=== PATIENT | male | born 1955 | race Caucasian/White ===

== ENCOUNTER 2020-09-27 14:29 | Inpatient (IN) | payer MEDICARE, OTHER ==
--- NOTE | 2020-09-27 14:49 | ED ---
SOB HPI - General Chief Complaint: Shortness of Breath Stated Complaint: +Covid Time Seen by Provider: 09/27/20 14:29 Source: patient, RN/MD, EMS, RN notes reviewed Mode of arrival: EMS Limitations: no limitations - History of Present Illness Initial Comments: This is a 65-year-old male with a history of COPD, a former smoker, history of hypothyroidism who uses 4 L of oxygen normally who really short of breath this evening and worse this morning. He was diagnosed with Covid 19 2 days ago. He was found upon initial evaluation by paramedics have a saturation of 77% on 4 L of oxygen. After being placed on 15 L up to 90%. Evaluation was performed at this facility and he was transferred for further evaluation and treatment of COPD exacerbation and Covid 19 his transfer was uneventful. MD Complaint: shortness of breath Review of Systems ROS Statement: Those systems with pertinent positive or pertinent negative responses have been documented in the HPI. ROS Other: All systems not noted in ROS Statement are negative. Past Medical History Past Medical History: COPD History of Any Multi-Drug Resistant Organisms: None Reported Past Surgical History: No Surgical Hx Reported Past Psychological History: No Psychological Hx Reported Smoking Status: Never smoker Past Alcohol Use History: None Reported Past Drug Use History: None Reported General Exam - General Exam Comments Initial Comments: Is a well-developed well-nourished awake alert oriented times 3 male Limitations: no limitations General appearance: alert, in no apparent distress Head exam: Present: atraumatic, normocephalic, normal inspection Eye exam: Present: normal appearance, PERRL, EOMI. Absent: scleral icterus, conjunctival injection, periorbital swelling ENT exam: Present: normal exam, mucous membranes moist Neck exam: Present: normal inspection. Absent: tenderness, meningismus, lymphadenopathy Respiratory exam: Present: decreased breath sounds. Absent: respiratory distress, wheezes, rales, rhonchi, stridor Cardiovascular Exam: Present: regular rate, normal rhythm, normal heart sounds. Absent: systolic murmur, diastolic murmur, rubs, gallop, clicks GI/Abdominal exam: Present: soft, normal bowel sounds. Absent: distended, tenderness, guarding, rebound, rigid Extremities exam: Present: normal inspection, full ROM, normal capillary refill. Absent: tenderness, pedal edema, joint swelling, calf tenderness Back exam: Present: normal inspection Neurological exam: Present: alert, oriented X3, CN II-XII intact Psychiatric exam: Present: normal affect, normal mood Skin exam: Present: warm, dry, intact, normal color. Absent: rash Course Vital Signs 09/27/20 09/27/20 14:34 14:37 Temperature 97.8 F Pulse Rate 71 Respiratory 22 24 Rate Blood Pressure 135/72 O2 Sat by Pulse 93 L Oximetry Medical Decision Making - Medical Decision Making I did review the materials that were available from the sending facility. Patient will be admitted for inpatient treatment and evaluation for COPD exacerbation and Covid 19 I did discuss the case with Dr. Cantrell Disposition Clinical Impression: Acute exacerbation of chronic obstructive pulmonary disease, COVID-19, Failure of outpatient treatment, Hypoxemia Disposition: ADMITTED IP TO THIS HOSP Condition: Fair Referrals: None,Stated [Primary Care Provider] - 1-2 days
[2020-09-27] MEDS ORDERED: NALOXONE 0.4 MG/ML 1 ML VIAL IV PRN ×2 (15:06→15:43)
[2020-09-27 15:32] LABS: ABG HCO3 20 mmol/L (21-25); ABG Oxygen Saturation 91.8 % (94-97); ABG PCO2 31 mmHg (35-45); ABG PH 7.43 (7.35-7.45); ABG PO2 64 mmHg (83-108); ABG TCO2 21 mmol/L (19-24); Allen Test Performed? Yes
[2020-09-27 15:33] LABS: Magnesium 2.7 mg/dL (1.6-2.3)
[2020-09-27 15:43] LABS: Partial Thromboplastin Time 25.8 sec (22.0-30.0); Prothrombin Time 10.2 sec (9.0-12.0)
[2020-09-27] MEDS ORDERED: ACETAMINOPHEN TAB 325 MG TAB PO PRN (15:43)
[2020-09-27] MEDS ORDERED: IPRATROPIUM-ALBUTEROL 3 ML NEB INHALATION PRN (15:49)
--- NOTE | 2020-09-27 15:53 | XR ---
EXAMINATION TYPE: XR chest 1V portable DATE OF EXAM: 09/27/2020 COMPARISON: None INDICATION: Suspected Covid 19 pneumonia, short of breath TECHNIQUE: Single frontal view of the chest is obtained. FINDINGS: The heart size is normal. The pulmonary vasculature is normal. Bibasilar infiltrates are present. These are scattered and extending towards the periphery. Findings can be compatible with a typical Pneumonia. IMPRESSION: 1. Scattered mid and lower lung field infiltrates can be compatible with atypical pneumonia.
[2020-09-27] MEDS ORDERED: DEXAMETHASONE SOD PHOSPHATE 10 MG/ML 1 ML VIAL IV SCH (16:00)
[2020-09-27 16:01] LABS: D-Dimer 0.99 mg/L FEU (<0.60)
[2020-09-27] MEDS: SODIUM CHLORIDE 0.9% 1,000 ML IV SCH (16:22)
--- NOTE | 2020-09-27 16:29 | CT ---
EXAMINATION TYPE: CT angio chest DATE OF EXAM: 09/27/2020 COMPARISON: None HISTORY: Shortness of breath. CT DLP: 340.3 mGycm CONTRAST: CT chest with contrast and 3D reconstruction with MIP imaging is performed with IV Contrast, patient injected with 100 mL of Isovue 300. Contrast-enhanced CT of the chest was performed through the course of the pulmonary arteries with rory g and mediastinal window settings submitted. 3D reconstruction with MIP imaging was also performed. PULMONARY ARTERIES: The pulmonary arteries and their major tributaries are patent. I do not see loren dence for sizable filling defect to suggest pulmonary embolic process. LUNGS: Moderately severe emphysematous changes are noted. There is evidence of fibrosis within the mi d and lower lung zones. Superimposed infiltrate is difficult to exclude. Correlate clinically. MEDIASTINUM: Thoracic aorta is of normal caliber,however, evaluation is limited given timing of the contrast bolus. If there is concern for thoracic aortic pathology consider YINA. Correlate clinicall y . The heart is not enlarged. No evidence for mediastinal mass. No mediastinal lymph nodes greater than 1cm. HILAR STRUCTURES: No evidence for mass. No hilar lymph nodes greater than 1 cm. UPPER ABDOMEN: No significant abnormality is seen. IMPRESSION: 1. No evidence for Pulmonary embolism at this time. 2. Moderately severe emphysematous changes underlying pulmonary fibrosis. Superimposed infiltrate is difficult to exclude. Correlate clinically.
[2020-09-27] MEDS: ALBUTEROL HFA INHALER INHALATION SCH ×3 (17:04→23:03)
--- NOTE | 2020-09-27 17:10 | P.HPIM ---
History of Present Illness H&P Date: 09/27/20 Chief Complaint: Dyspnea 65 year old man with history of COPD chronically on 4L of NC presented with increasing dyspnea as transfer from outlying facility. Patient says that he started to feel increasingly short of breath last wednesday along with some nausea and weakness. From that point, he says that it had gotten significantly worse over the last 1-2 days. Last wednesday, he tested positive for coronavirus. He also describes a developing headache, but otherwise ROS is negative for fevers, chills, chest pain, palpitations, syncope, presyncope, abdominal pain, dysuria, dyschezia, numbness/weakness of extremities. Patient called EMS and was found to be hypoxic at 77% on his home 4L NC. he was placed on NRB and saturated 90%. Pt was transferred to our facility for further management. Review of Systems All Systems reviewed and pertinent positives and negatives noted in HPI, all other symptoms are negative Past Medical History Past Medical History: COPD History of Any Multi-Drug Resistant Organisms: None Reported Past Surgical History: No Surgical Hx Reported Past Psychological History: No Psychological Hx Reported Smoking Status: Never smoker Past Alcohol Use History: None Reported Past Drug Use History: None Reported Medications and Allergies Allergies Allergy/AdvReac Type Severity Reaction Status Date / Time acetaminophen [From NyQuil] Allergy Rash/Hives Verified 09/27/20 16:48 bee venom protein (honey bee) Allergy Anaphylaxis Verified 09/27/20 16:48 dextromethorphan Allergy Rash/Hives Verified 09/27/20 16:48 [From NyQuil] diphenhydramine Allergy Rash/Hives Verified 09/27/20 16:48 [From Benadryl] doxylamine [From NyQuil] Allergy Rash/Hives Verified 09/27/20 16:48 milk Allergy Diarrhea Verified 09/27/20 16:48 orange juice Allergy Rash/Hives Verified 09/27/20 16:41 pseudoephedrine [From NyQuil] Allergy Rash/Hives Verified 09/27/20 16:48 oatmeal Allergy Rash/Hives Uncoded 09/27/20 16:41 Physical Exam Osteopathic Statement: *. No significant issues noted on an osteopathic structural exam other than those noted in the History and Physical/Consult. Vitals: Vital Signs Temp Pulse Resp BP Pulse Ox 09/27/20 14:37 24 09/27/20 14:34 97.8 F 71 22 135/72 93 L Intake and Output 09/27/20 09/27/20 09/27/20 06:59 14:59 22:59 Other: Weight 72.575 kg Gen: awake, alert HEENT: normocephalic, atraumatic, good hearing acuity, moist mucous membranes Resp: Poor air exchange, diminished breath sounds, no crackles, wheezes CVS: good distal perfusion x 4, RRR, no murmurs, clicks, gallops GI: soft, NTTP, ND : no SPT, no CVAT, faustin catheter not present MSK: no pitting edema, no clubbing Neuro: non-focal, no sensory deficits, appropriate tone Psych: cooperative, euthymic mood Results Labs: Abnormal Lab Results - Last 24 Hours (Table) 09/27/20 09/27/20 09/27/20 Range/Units 15:13 15:13 15:17 D-Dimer 0.99 H (<0.60) mg/L FEU ABG pCO2 31 L (35-45) mmHg ABG pO2 64 L (83-108) mmHg ABG HCO3 20 L (21-25) mmol/L ABG O2 Saturation 91.8 L (94-97) % Magnesium 2.7 H (1.6-2.3) mg/dL Lactate Dehydrogenase 869 H (313-618) U/L C-Reactive Protein 35.0 H (<10.0) mg/L Assessment and Plan Assessment: 1. Acute on Chronic Hypoxemic Respiratory Failure 2. COVID 19 3. COPD exacerbation 65 year old man with history of COPD presented with Acute on Chronic Hypoxemic R espiratory failure in background of being diagnosed with COVID 19. Plan: - admit to telemetry, contact, airborne - oxygen PRN - duonebs PRN - dexamethasone 6mg IV daily - pulm consulted, likely candidate for remdesivir, plasma - Vit C/D, Zn, Famotidine - daily inflammatory markers - CXR, CT Chest pending - enoxaparin 40mg daily for PPx - Date of symptom onset: 09/20 - Date of Diagnosis: 09/23 Full Code
[2020-09-27] MEDS: AZITHROMYCIN 500 MG in SODIUM CHLORIDE 0.9% 250 ML IVPB SCH (17:27)
[2020-09-27] MEDS: ASCORBIC ACID 500 MG TAB PO SCH (17:35)
[2020-09-27] MEDS: ZINC SULFATE 220 MG CAP PO SCH (17:35)
[2020-09-27] MEDS: CHOLECALCIFEROL 400 UNIT TAB PO SCH (18:04)
--- NOTE | 2020-09-27 18:04 | P.CNPUL ---
History of Present Illness Consult date: 09/27/20 Requesting physician: Nicko Cantrell Reason for consult: dyspnea Chief complaint: COVID 19 History of present illness: 65-year-old white male patient with a history of COPD, former smoker, on home oxygen at 4 L/m, was brought into the hospital on 09/27/2020 per EMS with the worsening shortness of breath, and worsening hypoxemia, patient was tested positive for COVID 19, 2 days ago. Upon initial evaluation by paramedics his pulse ox was 77% on 4 L, and his oxygen flow was increased to 15 L with a pulse ox of 90%. His chest x-ray showed scattered mid and lower lung field infiltrates. His lab work showed d-dimer 0.99, LDH of 869, CRP of 35, influenza screen was negative, lactic acid was 2.0, magnesium level is 2.7, blood gas was obtained on 100% FiO2 showing pO2 of 64, pCO2 31 and pH of 7.43. Patient was started on empiric antibiotics in the form of azithromycin and Rocephin, prophylactic dose of Lovenox, and IV Decadron 6 mg daily. He remains on high flow oxygen at 15 L, and his pulse ox is 93%, his breathing is labored. His CTA chest showed no evidence of pulmonary embolism, it did show moderately severe emphysematous changes and underlying pulmonary fibrosis. Patient states that he had bronchoscopy before and [place], however currently does not follow with a educational specialist, never had a lung biopsy for diagnosis of interstitial lung disease, his been on oxygen on as-needed basis, for a period of 10 years. During our evaluation patient is short of breath with conversation, his pulse ox is very marginal he is only sat 90-93%, on 15 L O2. Review of Systems All systems: negative Constitutional: Denies chills, Denies fever Eyes: denies blurred vision, denies pain Ears, nose, mouth and throat: Denies headache, Denies sore throat Cardiovascular: Denies chest pain, Denies shortness of breath Respiratory: Reports dyspnea, Reports home oxygen, Denies cough Gastrointestinal: Denies abdominal pain, Denies diarrhea, Denies nausea, Denies vomiting Musculoskeletal: Denies myalgias Integumentary: Denies pruritus, Denies rash Neurological: Denies numbness, Denies weakness Psychiatric: Denies anxiety, Denies depression Endocrine: Denies fatigue, Denies weight change Past Medical History Past Medical History: COPD History of Any Multi-Drug Resistant Organisms: None Reported Past Surgical History: No Surgical Hx Reported Past Psychological History: No Psychological Hx Reported Smoking Status: Never smoker Past Alcohol Use History: None Reported Past Drug Use History: None Reported Medications and Allergies Home Medications Medication Instructions Recorded Confirmed Type Atorvastatin [Lipitor] 20 mg PO HS 09/27/20 09/27/20 History Donepezil HCl [Aricept] 10 mg PO HS 09/27/20 09/27/20 History EPINEPHrine (Auto Inject) [Epipen] 0.3 mg IM ONCE PRN 09/27/20 09/27/20 History HYDROcodone/APAP 7.5-325MG [Blaine 1 tab PO Q6H PRN 09/27/20 09/27/20 History 7.5-325] Levothyroxine Sodium [Synthroid] 75 mcg PO DAILY 09/27/20 09/27/20 History Magnesium Oxide [Mag-Ox] 250 mg PO W/BRKFST 09/27/20 09/27/20 History Metoprolol Succinate [Toprol XL] 25 mg PO DAILY 09/27/20 09/27/20 History Montelukast Sodium [Singulair] 10 mg PO HS 09/27/20 09/27/20 History Ranitidine HCl 150 mg PO DAILY 09/27/20 09/27/20 History dexAMETHasone [Dexamethasone] See Taper PO DAILY 09/27/20 09/27/20 History hydroCHLOROthiazide [Hydrodiuril] 25 mg PO DAILY 09/27/20 09/27/20 History lisinopriL [Zestril] 20 mg PO DAILY 09/27/20 09/27/20 History Allergies Allergy/AdvReac Type Severity Reaction Status Date / Time acetaminophen [From NyQuil] Allergy Rash/Hives Verified 09/27/20 16:48 bee venom protein (honey bee) Allergy Anaphylaxis Verified 09/27/20 16:48 dextromethorphan Allergy Rash/Hives Verified 09/27/20 16:48 [From NyQuil] diphenhydramine Allergy Rash/Hives Verified 09/27/20 16:48 [From Benadryl] doxylamine [From NyQuil] Allergy Rash/Hives Verified 09/27/20 16:48 milk Allergy Diarrhea Verified 09/27/20 16:48 orange juice Allergy Rash/Hives Verified 09/27/20 16:41 pseudoephedrine [From NyQuil] Allergy Rash/Hives Verified 09/27/20 16:48 oatmeal Allergy Rash/Hives Uncoded 09/27/20 16:41 Physical Exam Vitals: Vital Signs Temp Pulse Resp BP Pulse Ox 09/27/20 14:37 24 09/27/20 14:34 97.8 F 71 22 135/72 93 L Intake and Output 09/27/20 09/27/20 09/27/20 06:59 14:59 22:59 Other: Weight 72.575 kg GENERAL EXAM: Alert, very pleasant, 65-year-old white female, on 15 L of oxygen the pulse ox between 90-93%, dyspneic, tachypneic with conversation comfortable in no apparent distress. HEAD: Normocephalic/atraumatic. EYES: Normal reaction of pupils, equal size. Conjunctiva pink, sclera white. NOSE: Clear with pink turbinates. THROAT: No erythema or exudates. NECK: No masses, no JVD, no thyroid enlargement, no adenopathy. CHEST: No chest wall deformity. Symmetrical expansion. LUNGS: Equal air entry with diffuse crackles CVS: Regular rate and rhythm, normal S1 and S2, no gallops, no murmurs, no rubs ABDOMEN: Soft, nontender. No hepatosplenomegaly, normal bowel sounds, no guarding or rigidity. EXTREMITIES: clubbing noted in bilateral fingernails, no edema, no cyanosis, 2+ pulses and upper and lower extremities. MUSCULOSKELETAL: Muscle strength and tone normal. SPINE: No scoliosis or deformity SKIN: No rashes CENTRAL NERVOUS SYSTEM: Alert and oriented -3. No focal deficits, tone is normal in all 4 extremities. PSYCHIATRIC: Alert and oriented -3. Appropriate affect. Intact judgment and insight. Results - Laboratory Findings ABG ABG pH 7.43 (7.35-7.45) 09/27/20 15:17 ABG pCO2 31 mmHg (35-45) L 09/27/20 15:17 ABG pO2 64 mmHg (83-108) L 09/27/20 15:17 ABG O2 Saturation 91.8 % (94-97) L 09/27/20 15:17 PT/INR, D-dimer PT 10.2 sec (9.0-12.0) 09/27/20 15:13 INR 1.0 (<1.2) 09/27/20 15:13 D-Dimer 0.99 mg/L FEU (<0.60) H 09/27/20 15:13 Abnormal lab findings: Abnormal Labs 09/27/20 09/27/20 09/27/20 15:13 15:13 15:17 D-Dimer 0.99 H ABG pCO2 31 L ABG pO2 64 L ABG HCO3 20 L ABG O2 Saturation 91.8 L Magnesium 2.7 H Lactate Dehydrogenase 869 H C-Reactive Protein 35.0 H - Diagnostic Findings Chest x-ray: report reviewed, image reviewed CT scan - chest: report reviewed, image reviewed Assessment and Plan Plan: Assessment: #1. Acute on chronic hypoxic respiratory failure related to acute COVID 19 pneumonitis, tested positive for COVID 19 2 days ago #2. Chronic hypoxic respiratory failure related to history of COPD and underlying interstitial lung disease, normally wears 4 L of oxygen on as-needed basis #3. Former smoker #4. History of hypothyroidism #5. Elevated inflammatory markers related to acute COVID 19 infection #6. Elevated d-dimer of 0.99 on admission, with no evidence of pulmonary embolism on CT chest Plan: Continue Decadron, continue Lovenox, will add Pepcid, will add vitamin C, zinc supplement, vitamin D, we will add Remdesivir pending blood work to check his renal profile. Obtain pro-calcitonin level, follow-up inflammatory markers, follow-up chest x-ray in the morning, continue close monitoring of her oxygenation and febrile pattern, patient's condition is marginal, he is requiring high flow oxygen, his breathing is labored, has a high potential for further decompensation, we will upgrade his status to intensive care unit, and he will be closely followed in the intensive care unit. I performed a history & physical examination of the patient and discussed their management with my nurse practitioner, Morenita Abad. I reviewed the nurse practitioner's note and agree with the documented findings and plan of care. Lung sounds are positive for diminished breath sounds. The findings and the impression was discussed with the patient. I attest to the documentation by the nurse practitioner. Time with Patient: Greater than 30
[2020-09-27] MEDS: methylPREDNISolone SOD SUCCI 125 MG/2 ML VIAL IV SCH (18:31)
[2020-09-27 18:46] LABS: Basophils # (A) 0.1 k/uL (0-0.2); Basophils % (A) 1 %; Eosinophils % (A) 0 %; HCT 44.4 % (39.0-53.0); HGB 14.8 gm/dL (13.0-17.5); Lymphocytes # (A) 0.4 k/uL (1.0-4.8); Lymphocytes % (A) 4 %; MCH 29.1 pg (25.0-35.0); MCHC 33.4 g/dL (31.0-37.0); Mean Platelet Volume 7.8; Monocytes # (A) 0.4 k/uL (0-1.0); Monocytes % (A) 4 %; Neutrophils % (A) 91 %; Platelet Count 257 k/uL (150-450); WBC 9.9 k/uL (3.8-10.6)
[2020-09-27 18:56] LABS: Albumin 3.5 g/dL (3.5-5.0); Calcium 8.5 mg/dL (8.4-10.2); Potassium 4.9 mmol/L (3.5-5.1); Total Bilirubin 0.7 mg/dL (0.2-1.3); Total Protein 6.6 g/dL (6.3-8.2)
[2020-09-27] MEDS ORDERED: FAMOTIDINE 20 MG/2 ML VIAL IV SCH (21:00)
[2020-09-27] MEDS: MELATONIN 5 MG TABLET PO SCH (21:26)
[2020-09-27] MEDS: FAMOTIDINE 20 MG TAB PO SCH (21:26)
[2020-09-28 00:34] LABS: Ferritin 1106.3 ng/mL (22.0-322.0)
[2020-09-28 04:05] LABS: Albumin 3.2 g/dL (3.5-5.0); Calcium 8.3 mg/dL (8.4-10.2); Magnesium 2.8 mg/dL (1.6-2.3); Potassium 4.5 mmol/L (3.5-5.1); Total Bilirubin 0.6 mg/dL (0.2-1.3); Total Protein 6.1 g/dL (6.3-8.2)
[2020-09-28 04:12] LABS: Basophils % (A) 0 %; Eosinophils % (A) 0 %; HCT 42.5 % (39.0-53.0); Lymphocytes # (A) 0.4 k/uL (1.0-4.8); Lymphocytes % (A) 5 %; MCH 28.9 pg (25.0-35.0); MCV 87.4 fL (80.0-100.0); Mean Platelet Volume 8.1; Monocytes # (A) 0.3 k/uL (0-1.0); Monocytes % (A) 4 %; Neutrophils # (A) 7.2 k/uL (1.3-7.7); Neutrophils % (A) 89 %; Platelet Count 249 k/uL (150-450); RBC 4.86 m/uL (4.30-5.90); WBC 8.1 k/uL (3.8-10.6)
[2020-09-28] MEDS: ALBUTEROL HFA INHALER INHALATION SCH ×6 (06:15→23:29)
[2020-09-28 07:21] LABS: C Reactive Protein 36.4 mg/L (<10.0)
[2020-09-28] MEDS: methylPREDNISolone SOD SUCCI 125 MG/2 ML VIAL IV SCH ×4 (07:28→17:20)
[2020-09-28] MEDS: SODIUM CHLORIDE 0.9% 1,000 ML IV SCH ×3 (08:02→21:13)
[2020-09-28] MEDS: ENOXAPARIN 40 MG/0.4 ML SYRINGE SQ SCH (08:43)
[2020-09-28] MEDS: ASCORBIC ACID 500 MG TAB PO SCH (08:43)
[2020-09-28] MEDS: ZINC SULFATE 220 MG CAP PO SCH (08:43)
[2020-09-28] MEDS: FAMOTIDINE 20 MG TAB PO SCH ×2 (08:43→21:14)
[2020-09-28] MEDS: CHOLECALCIFEROL 400 UNIT TAB PO SCH (09:23)
--- NOTE | 2020-09-28 12:34 | P.PN ---
Subjective Progress Note Date: 09/28/20 No new complaints today. Comfortable on HFNC. No complaints of pain. Pulmonary following. Objective - Vital Signs Vital signs: Vital Signs Temp 97.8 F 09/27/20 14:34 Pulse 60 09/28/20 11:09 Resp 18 09/28/20 11:09 BP 124/65 09/28/20 11:09 Pulse Ox 92 L 09/28/20 11:09 Intake & Output 09/27/20 09/28/20 09/28/20 18:59 06:59 18:59 Weight 72.575 kg - Exam Gen: awake, alert HEENT: normocephalic, atraumatic, good hearing acuity, moist mucous membranes Resp: Poor air exchange, diminished breath sounds, no crackles, wheezes CVS: good distal perfusion x 4, RRR, no murmurs, clicks, gallops GI: soft, NTTP, ND : no SPT, no CVAT, faustin catheter not present MSK: no pitting edema, no clubbing Neuro: non-focal, no sensory deficits, appropriate tone Psych: cooperative, euthymic mood - Labs CBC & Chem 7: 09/28/20 03:17 09/28/20 03:17 Labs: Abnormal Lab Results - Last 24 Hours (Table) 09/27/20 09/27/20 09/27/20 Range/Units 15:13 15:13 15:17 Neutrophils # (1.3-7.7) k/uL Lymphocytes # (1.0-4.8) k/uL D-Dimer 0.99 H (<0.60) mg/L FEU ABG pCO2 31 L (35-45) mmHg ABG pO2 64 L (83-108) mmHg ABG HCO3 20 L (21-25) mmol/L ABG O2 Saturation 91.8 L (94-97) % Chloride (98-107) mmol/L Carbon Dioxide (22-30) mmol/L BUN (9-20) mg/dL Creatinine (0.66-1.25) mg/dL Glucose (74-99) mg/dL Calcium (8.4-10.2) mg/dL Magnesium 2.7 H (1.6-2.3) mg/dL Ferritin 1106.3 H (22.0-322.0) ng/mL Lactate Dehydrogenase 869 H (313-618) U/L C-Reactive Protein 35.0 H (<10.0) mg/L Total Protein (6.3-8.2) g/dL Albumin (3.5-5.0) g/dL 09/27/20 09/27/20 09/28/20 Range/Units 18:38 18:38 03:17 Neutrophils # 9.0 H (1.3-7.7) k/uL Lymphocytes # 0.4 L 0.4 L (1.0-4.8) k/uL D-Dimer (<0.60) mg/L FEU ABG pCO2 (35-45) mmHg ABG pO2 (83-108) mmHg ABG HCO3 (21-25) mmol/L ABG O2 Saturation (94-97) % Chloride 110 H (98-107) mmol/L Carbon Dioxide 20 L (22-30) mmol/L BUN 47 H (9-20) mg/dL Creatinine 1.53 H (0.66-1.25) mg/dL Glucose 136 H (74-99) mg/dL Calcium (8.4-10.2) mg/dL Magnesium (1.6-2.3) mg/dL Ferritin (22.0-322.0) ng/mL Lactate Dehydrogenase (313-618) U/L C-Reactive Protein (<10.0) mg/L Total Protein (6.3-8.2) g/dL Albumin (3.5-5.0) g/dL 09/28/20 09/28/20 09/28/20 Range/Units 03:17 06:43 06:43 Neutrophils # (1.3-7.7) k/uL Lymphocytes # (1.0-4.8) k/uL D-Dimer 1.07 H (<0.60) mg/L FEU ABG pCO2 (35-45) mmHg ABG pO2 (83-108) mmHg ABG HCO3 (21-25) mmol/L ABG O2 Saturation (94-97) % Chloride 112 H (98-107) mmol/L Carbon Dioxide 20 L (22-30) mmol/L BUN 45 H (9-20) mg/dL Creatinine (0.66-1.25) mg/dL Glucose 147 H (74-99) mg/dL Calcium 8.3 L (8.4-10.2) mg/dL Magnesium 2.8 H (1.6-2.3) mg/dL Ferritin (22.0-322.0) ng/mL Lactate Dehydrogenase 833 H (313-618) U/L C-Reactive Protein 36.4 H (<10.0) mg/L Total Protein 6.1 L (6.3-8.2) g/dL Albumin 3.2 L (3.5-5.0) g/dL Assessment and Plan Assessment: 1. Acute on Chronic Hypoxemic Respiratory Failure 2. COVID 19 3. COPD exacerbation 65 year old man with history of COPD presented with Acute on Chronic Hypoxemic Respiratory failure in background of being diagnosed with COVID 19. Plan: - admit to telemetry, contact, airborne - oxygen PRN - duonebs PRN - dexamethasone 6mg IV daily - pulm consulted, likely candidate for remdesivir, plasma - Vit C/D, Zn, Famotidine - daily inflammatory markers - CXR, CT Chest negative for PE - enoxaparin 40mg daily for PPx - Date of symptom onset: 09/20 - Date of Diagnosis: 09/23 Full Code
[2020-09-28 13:09] LABS: Ferritin 1186.5 ng/mL (22.0-322.0)
--- NOTE | 2020-09-28 17:01 | P.PN ---
Subjective Progress Note Date: 09/28/20 Principal diagnosis: Acute hypoxic respiratory failure secondary to covid 19 pneumonitis 65-year-old white male patient with a history of COPD, former smoker, on home oxygen at 4 L/m, was brought into the hospital on 09/27/2020 per EMS with the worsening shortness of breath, and worsening hypoxemia, patient was tested positive for COVID 19, 2 days ago. Upon initial evaluation by paramedics his pulse ox was 77% on 4 L, and his oxygen flow was increased to 15 L with a pulse ox of 90%. His chest x-ray showed scattered mid and lower lung field infiltrates. His lab work showed d-dimer 0.99, LDH of 869, CRP of 35, influenza screen was negative, lactic acid was 2.0, magnesium level is 2.7, blood gas was obtained on 100% FiO2 showing pO2 of 64, pCO2 31 and pH of 7.43. Patient was started on empiric antibiotics in the form of azithromycin and Rocephin, prophylactic dose of Lovenox, and IV Decadron 6 mg daily. He remains on high flow oxygen at 15 L, and his pulse ox is 93%, his breathing is labored. His CTA chest showed no evidence of pulmonary embolism, it did show moderately severe emphysematous changes and underlying pulmonary fibrosis. Patient states that he had bronchoscopy before and [place], however currently does not follow with a claim specialist, never had a lung biopsy for diagnosis of interstitial lung disease, his been on oxygen on as-needed basis, for a period of 10 years. During our evaluation patient is short of breath with conversation, his pulse ox is very marginal he is only sat 90-93%, on 15 L O2. Patient was reevaluated today on 09/28/20, I evaluated the patient again in the ER this morning, and I'll arrange for the patient to be admitted to the floor instead of going to the ICU. Patient is feeling much better today compared to how he felt yesterday. Remains on high flow cannula at 15 L/m, patient is feeling better, breathing easier, his O2 saturation is 94%. He had a T-max of 98.9. Blood pressure is 169/72 heart rate is 104. Electrolytes are normal BUN is down to 45 creatinine is down to 1.25. Patient is tolerating remdesivir and the Covid 19 cocktail quite well. Objective - Vital Signs Vital signs: Vital Signs Temp 98 F 09/28/20 15:20 Pulse 68 09/28/20 15:20 Resp 20 09/28/20 15:20 BP 169/72 09/28/20 15:20 Pulse Ox 93 L 09/28/20 16:04 Intake & Output 09/27/20 09/28/20 09/28/20 18:59 06:59 18:59 Output Total 600 Balance -600 Weight 72.575 kg 72.575 kg Output: Urine 600 Other: Voiding Method Urinal - Exam GENERAL EXAM: Alert, very pleasant, 65-year-old white female, in mild respiratory distress but improved compared to yesterday. HEENT: PERRLA, EOMI, no icterus. CHEST: No chest wall deformity. Symmetrical expansion. LUNGS: Equal air entry with diffuse crackles CVS: Regular rate and rhythm, normal S1 and S2, no gallops, no murmurs, no rubs ABDOMEN: Soft, nontender. No hepatosplenomegaly, normal bowel sounds, no guarding or rigidity. EXTREMITIES: clubbing noted in bilateral fingernails, no edema, no cyanosis, 2+ pulses and upper and lower extremities. MUSCULOSKELETAL: Muscle strength and tone normal. SPINE: No scoliosis or deformity SKIN: No rashes CENTRAL NERVOUS SYSTEM: Alert and oriented -3. No focal deficits, tone is normal in all 4 extremities. PSYCHIATRIC: Alert and oriented -3. Appropriate affect. Intact judgment and insight. - Labs CBC & Chem 7: 09/28/20 03:17 09/28/20 03:17 Labs: Abnormal Lab Results - Last 24 Hours (Table) 09/27/20 09/27/20 09/27/20 Range/Units 15:13 18:38 18:38 Neutrophils # 9.0 H (1.3-7.7) k/uL Lymphocytes # 0.4 L (1.0-4.8) k/uL D-Dimer (<0.60) mg/L FEU Chloride 110 H (98-107) mmol/L Carbon Dioxide 20 L (22-30) mmol/L BUN 47 H (9-20) mg/dL Creatinine 1.53 H (0.66-1.25) mg/dL Glucose 136 H (74-99) mg/dL Calcium (8.4-10.2) mg/dL Magnesium (1.6-2.3) mg/dL Ferritin 1106.3 H (22.0-322.0) ng/mL Lactate Dehydrogenase (313-618) U/L C-Reactive Protein (<10.0) mg/L Total Protein (6.3-8.2) g/dL Albumin (3.5-5.0) g/dL 09/28/20 09/28/20 09/28/20 Range/Units 03:17 03:17 06:43 Neutrophils # (1.3-7.7) k/uL Lymphocytes # 0.4 L (1.0-4.8) k/uL D-Dimer 1.07 H (<0.60) mg/L FEU Chloride 112 H (98-107) mmol/L Carbon Dioxide 20 L (22-30) mmol/L BUN 45 H (9-20) mg/dL Creatinine (0.66-1.25) mg/dL Glucose 147 H (74-99) mg/dL Calcium 8.3 L (8.4-10.2) mg/dL Magnesium 2.8 H (1.6-2.3) mg/dL Ferritin (22.0-322.0) ng/mL Lactate Dehydrogenase 833 H (313-618) U/L C-Reactive Protein (<10.0) mg/L Total Protein 6.1 L (6.3-8.2) g/dL Albumin 3.2 L (3.5-5.0) g/dL 09/28/20 Range/Units 06:43 Neutrophils # (1.3-7.7) k/uL Lymphocytes # (1.0-4.8) k/uL D-Dimer (<0.60) mg/L FEU Chloride (98-107) mmol/L Carbon Dioxide (22-30) mmol/L BUN (9-20) mg/dL Creatinine (0.66-1.25) mg/dL Glucose (74-99) mg/dL Calcium (8.4-10.2) mg/dL Magnesium (1.6-2.3) mg/dL Ferritin 1186.5 H (22.0-322.0) ng/mL Lactate Dehydrogenase (313-618) U/L C-Reactive Protein 36.4 H (<10.0) mg/L Total Protein (6.3-8.2) g/dL Albumin (3.5-5.0) g/dL Assessment and Plan Assessment: #1. Acute on chronic hypoxic respiratory failure related to acute COVID 19 pneumonitis, tested positive for COVID 19 2 days ago #2. Chronic hypoxic respiratory failure related to history of COPD and underlying interstitial lung disease, normally wears 4 L of oxygen on as-needed basis #3. Former smoker #4. History of hypothyroidism #5. Elevated inflammatory markers related to acute COVID 19 infection #6. Elevated d-dimer of 0.99 on admission, with no evidence of pulmonary embolism on CT chest Recommendation: Continue oxygen and titrate accordingly. Continue the Covid 19 cocktail. Continue remdesivir We'll arrange for the patient to be transferred to a regular medical floor instead of ICU We'll continue to follow. Prognosis remains guarded, patient does have significant mortalities and morbidities. Time with Patient: Less than 30
[2020-09-28] MEDS: AZITHROMYCIN 500 MG in SODIUM CHLORIDE 0.9% 250 ML IVPB SCH (17:20)
[2020-09-28] MEDS: MELATONIN 5 MG TABLET PO SCH (21:14)
[2020-09-29] MEDS: methylPREDNISolone SOD SUCCI 125 MG/2 ML VIAL IV SCH ×4 (02:16→16:45)
[2020-09-29] MEDS: ALBUTEROL HFA INHALER INHALATION SCH ×6 (06:09→23:29)
[2020-09-29] MEDS: SODIUM CHLORIDE 0.9% 1,000 ML IV SCH ×2 (06:29→16:35)
[2020-09-29 06:41] LABS: Basophils # (A) 0.1 k/uL (0-0.2); Basophils % (A) 1 %; Eosinophils % (A) 0 %; HCT 42.9 % (39.0-53.0); Lymphocytes # (A) 0.6 k/uL (1.0-4.8); Lymphocytes % (A) 5 %; MCH 28.6 pg (25.0-35.0); MCHC 32.7 g/dL (31.0-37.0); MCV 87.3 fL (80.0-100.0); Mean Platelet Volume 7.7; Monocytes # (A) 0.5 k/uL (0-1.0); Monocytes % (A) 5 %; Neutrophils # (A) 9.3 k/uL (1.3-7.7); Neutrophils % (A) 87 %; Platelet Count 299 k/uL (150-450); RBC 4.91 m/uL (4.30-5.90); RDW 12.9 % (11.5-15.5); WBC 10.7 k/uL (3.8-10.6)
[2020-09-29] MEDS: FAMOTIDINE 20 MG TAB PO SCH ×2 (08:26→22:17)
[2020-09-29] MEDS: ASCORBIC ACID 500 MG TAB PO SCH (08:26)
[2020-09-29] MEDS: CHOLECALCIFEROL 400 UNIT TAB PO SCH (08:27)
[2020-09-29] MEDS: ZINC SULFATE 220 MG CAP PO SCH (08:27)
[2020-09-29] MEDS: ENOXAPARIN 40 MG/0.4 ML SYRINGE SQ SCH (08:27)
[2020-09-29 09:05] LABS: Glucose,Whole Blood 127 mg/dL (75-99)
[2020-09-29 09:19] LABS: ABG Base Excess -7.2 mmol/L; ABG HCO3 18 mmol/L (21-25); ABG Oxygen Saturation 88.7 % (94-97); ABG PCO2 30 mmHg (35-45); ABG PH 7.38 (7.35-7.45); ABG TCO2 19 mmol/L (19-24); Allen Test Performed? Yes
[2020-09-29 09:26] LABS: ABG PO2 58 mmHg (83-108)
--- NOTE | 2020-09-29 09:33 | XR ---
EXAMINATION TYPE: XR chest 1V portable DATE OF EXAM: 09/29/2020 CLINICAL HISTORY: Difficulty breathing and weakness progress study. Covid Positive . TECHNIQUE: Single AP portable upright view of the chest is obtained. COMPARISON: Chest x-ray and CTA chest from 2 days earlier FINDINGS: Background chronic emphysematous and pulmonary fibrotic changes with persistent peripheral increased opacities bilaterally. No pleural effusion or pneumothorax seen bilaterally. Cardiac silho uette size stable and within normal limits. Atherosclerotic change thoracic aorta redemonstrated. Mul tilevel spurring in the spine again seen. IMPRESSION: Chronic emphysematous and pulmonary fibrotic changes with persistent bilateral peripheral acute infiltrates. No significant change from 2 days earlier.
--- NOTE | 2020-09-29 09:36 | P.EN ---
A team Note: Called to room for low O2 sat. Patient had been on 15L via NC and was satting 77%. He had a non rebreath placed which phil O2 to 84% we added back the 15L NC for a O2 sast of 88%. ABG obtained an reviewed 7.381/30.2/18. CXR ordered and reviewed and no acute changes. Patient seen and examined at bedside. He complains of being tired and short of breath. Gen: Moderate distress, ill appearing CV: S1S2 tachy, no murmur Lungs: Course BS b/l, + Accessory muscle use, + 3 word conversational dyspnea 1. COVID 19 pneumonitis 2. Acute hypoxic respiratory failure - ABG and CXR reviewed - Add NRB to 15L NC - Report given to Dr. Cantrell - [facility] no current order for Remdesivir and they will reach out to Pulmonary. A total of 32 minutes of critical care time was spent on this complex patient.
[2020-09-29 10:12] LABS: African American GFR (CKD) 91.1 (60.0-200.0); Albumin 3.6 g/dL (3.80-4.90); Albumin/Globulin Ratio 1.89 (1.60-3.17); Anion Gap 6.8 mmol/L (4.00-12.00); Calcium 8.7 mg/dL (8.7-10.3); Carbon Dioxide 22.2 mmol/L (21.6-31.8); Globulin 1.9 g/dL (1.6-3.3); Magnesium 2.6 mg/dL (1.5-2.4); Non-African American GFR(CKD) 78.6 (60.0-200.0); Potassium 4.8 mmol/L (3.5-5.5); Total Bilirubin 0.6 mg/dL (0.2-1.2); Total Protein 5.5 g/dL (6.2-8.2)
[2020-09-29] MEDS ORDERED: REMDESIVIR 200 MG in SODIUM CHLORIDE 0.9% 250 ML IVPB ONE (11:00)
--- NOTE | 2020-09-29 13:25 | P.PN ---
Subjective Progress Note Date: 09/29/20 Pt had an A-Team called this Am due to hypoxia down to the 70s on 15L HFNC with accessory muscle use. Patient still has conversational dyspnea on my interview today. Does not think he could make it to a commode without significant shortness of breath. Low threshold for transfer to ICU Objective - Vital Signs Vital signs: Vital Signs Temp 97.8 F 09/29/20 09:32 Pulse 75 09/29/20 09:32 Resp 20 09/29/20 09:32 BP 134/64 09/29/20 09:32 Pulse Ox 92 L 09/29/20 09:32 Intake & Output 09/28/20 09/29/20 09/29/20 18:59 06:59 18:59 Intake Total 200 100 Output Total 600 Balance -600 200 100 Weight 72.575 kg Intake: Oral 200 100 Output: Urine 600 Other: Voiding Method Urinal Urinal # Voids 1 3 - Exam Gen: awake, alert, in moderate distress from dyspnea HEENT: normocephalic, atraumatic, good hearing acuity, moist mucous membranes Resp: Poor air exchange, diminished breath sounds, +accessory muscle use CVS: good distal perfusion x 4, RRR, no murmurs, clicks, gallops GI: soft, NTTP, ND : no SPT, no CVAT, faustin catheter not present MSK: no pitting edema, no clubbing Neuro: non-focal, no sensory deficits, appropriate tone Psych: anxious, in distress - Labs CBC & Chem 7: 09/29/20 05:56 09/29/20 05:56 Labs: Abnormal Lab Results - Last 24 Hours (Table) 09/29/20 09/29/20 09/29/20 Range/Units 05:56 05:56 09:04 WBC 10.7 H (3.8-10.6) k/uL Neutrophils # 9.3 H (1.3-7.7) k/uL Lymphocytes # 0.6 L (1.0-4.8) k/uL ABG pCO2 (35-45) mmHg ABG pO2 (83-108) mmHg ABG HCO3 (21-25) mmol/L ABG O2 Saturation (94-97) % Chloride 113 H (96-109) mmol/L BUN 31.0 H (9.0-27.0) mg/dL BUN/Creatinine Ratio 31.00 H (12.00-20.00) Ratio Glucose 128 H (70-110) mg/dL POC Glucose (mg/dL) 127 H (75-99) mg/dL Magnesium 2.6 H (1.5-2.4) mg/dL Lactate Dehydrogenase 374 H (120-246) U/L Total Protein 5.5 L (6.2-8.2) g/dL Albumin 3.60 L (3.80-4.90) g/dL 09/29/20 Range/Units 09:16 WBC (3.8-10.6) k/uL Neutrophils # (1.3-7.7) k/uL Lymphocytes # (1.0-4.8) k/uL ABG pCO2 30 L (35-45) mmHg ABG pO2 58 L* (83-108) mmHg ABG HCO3 18 L (21-25) mmol/L ABG O2 Saturation 88.7 L (94-97) % Chloride (96-109) mmol/L BUN (9.0-27.0) mg/dL BUN/Creatinine Ratio (12.00-20.00) Ratio Glucose (70-110) mg/dL POC Glucose (mg/dL) (75-99) mg/dL Magnesium (1.5-2.4) mg/dL Lactate Dehydrogenase (120-246) U/L Total Protein (6.2-8.2) g/dL Albumin (3.80-4.90) g/dL Microbiology - Last 24 Hours (Table) 09/27/20 16:20 Blood Culture - Preliminary Blood No Growth after 24 hours Assessment and Plan Assessment: 1. Acute on Chronic Hypoxemic Respiratory Failure 2. COVID 19 3. COPD exacerbation 65 year old man with history of COPD presented with Acute on Chronic Hypoxemic Respiratory failure in background of being diagnosed with COVID 19. Plan: - admit to telemetry, contact, airborne - oxygen PRN - duonebs PRN - dexamethasone 6mg IV daily - pulm consulted, likely candidate for remdesivir, plasma - Vit C/D, Zn, Famotidine - daily inflammatory markers - CXR, CT Chest negative for PE - enoxaparin 40mg daily for PPx - Low threshold for ICU transfer due to rapidly worsening pulmonary status. - Date of symptom onset: 09/20 - Date of Diagnosis: 09/23 Full Code
--- NOTE | 2020-09-29 14:56 | P.PN ---
Subjective Progress Note Date: 09/29/20 Principal diagnosis: Acute on chronic hypoxic respiratory failure secondary to CoVID 19 pneumonitis 65-year-old white male patient with a history of COPD, former smoker, on home o xygen at 4 L/m, was brought into the hospital on 09/27/2020 per EMS with the worsening shortness of breath, and worsening hypoxemia, patient was tested positive for COVID 19, 2 days ago. Upon initial evaluation by paramedics his pulse ox was 77% on 4 L, and his oxygen flow was increased to 15 L with a pulse ox of 90%. His chest x-ray showed scattered mid and lower lung field infiltrates. His lab work showed d-dimer 0.99, LDH of 869, CRP of 35, influenza screen was negative, lactic acid was 2.0, magnesium level is 2.7, blood gas was obtained on 100% FiO2 showing pO2 of 64, pCO2 31 and pH of 7.43. Patient was started on empiric antibiotics in the form of azithromycin and Rocephin, prophylactic dose of Lovenox, and IV Decadron 6 mg daily. He remains on high flow oxygen at 15 L, and his pulse ox is 93%, his breathing is labored. His CTA chest showed no evidence of pulmonary embolism, it did show moderately severe emphysematous changes and underlying pulmonary fibrosis. Patient states that he had bronchoscopy before and [place], however currently does not follow with a health support specialist, never had a lung biopsy for diagnosis of interstitial lung disease, his been on oxygen on as-needed basis, for a period of 10 years. During our evaluation patient is short of breath with conversation, his pulse ox is very marginal he is only sat 90-93%, on 15 L O2. Patient was reevaluated today on 09/28/20, I evaluated the patient again in the ER this morning, and I'll arrange for the patient to be admitted to the floor instead of going to the ICU. Patient is feeling much better today compared to how he felt yesterday. Remains on high flow cannula at 15 L/m, patient is feeling better, breathing easier, his O2 saturation is 94%. He had a T-max of 98.9. Blood pressure is 169/72 heart rate is 104. Electrolytes are normal BUN is down to 45 creatinine is down to 1.25. Patient is tolerating remdesivir and the Covid 19 cocktail quite well. The patient is seen today 09/29/2020 in follow-up on the regular medical floor. He is currently required 15 L high flow nasal cannula in addition to a nonrebreather mask. He had issues with O2 saturations in the upper 70s earlier this morning. Chest x-ray continued to show chronic emphysematous changes and pulmonary fibrotic changes with persistent bilateral peripheral acute infiltrates. No significant change compared to previous on 09/27/2020. Arterial blood gases revealed a pO2 of 58, pCO2 of 30 and a pH is 7.3 800% FiO2. The patient had been ordered Remdesivir while still in the emergency room the initial night however the order was not processed to the regular medical floor. He is initiated on it today. He has been continued on Lovenox for DVT prophylaxis, IV Solu-Medrol, Pepcid, melatonin, zinc, vitamin C, vitamin D. White count 10.7. Hemoglobin 14.0. Sodium 142. Potassium 4.8. LDH 374. Pro-calcitonin 0.03. Antibiotics will be discontinued. Objective - Vital Signs Vital signs: Vital Signs Temp 97.8 F 09/29/20 13:03 Pulse 74 09/29/20 13:03 Resp 17 09/29/20 13:03 BP 139/76 09/29/20 13:03 Pulse Ox 93 L 09/29/20 13:03 Intake & Output 09/28/20 09/29/20 09/29/20 18:59 06:59 18:59 Intake Total 200 200 Output Total 600 Balance -600 200 200 Weight 72.575 kg Intake: Oral 200 200 Output: Urine 600 Other: Voiding Method Urinal Urinal # Voids 1 3 - Exam GENERAL EXAM: Alert, pleasant, 65-year-old male patient, and 15 L high flow nasal cannula and nonrebreather mask, in mild respiratory distress. HEENT: PERRLA, EOMI, no icterus. CHEST: No chest wall deformity. Symmetrical expansion. LUNGS: Equal air entry with bilateral scattered rhonchi, diffuse crackles CVS: Regular rate and rhythm, normal S1 and S2, no gallops, no murmurs, no rubs ABDOMEN: Soft, nontender. No hepatosplenomegaly, normal bowel sounds, no guarding or rigidity. EXTREMITIES: clubbing noted in bilateral fingernails, no edema, no cyanosis, 2+ pulses and upper and lower extremities. MUSCULOSKELETAL: Muscle strength and tone normal. SPINE: No scoliosis or deformity SKIN: No rashes CENTRAL NERVOUS SYSTEM: No focal deficits, tone is normal in all 4 extremities. PSYCHIATRIC: Alert and oriented -3. Appropriate affect. Intact judgment and insight. - Labs CBC & Chem 7: 09/29/20 05:56 09/29/20 05:56 Labs: Abnormal Lab Results - Last 24 Hours (Table) 09/29/20 09/29/20 09/29/20 Range/Units 05:56 05:56 09:04 WBC 10.7 H (3.8-10.6) k/uL Neutrophils # 9.3 H (1.3-7.7) k/uL Lymphocytes # 0.6 L (1.0-4.8) k/uL ABG pCO2 (35-45) mmHg ABG pO2 (83-108) mmHg ABG HCO3 (21-25) mmol/L ABG O2 Saturation (94-97) % Chloride 113 H (96-109) mmol/L BUN 31.0 H (9.0-27.0) mg/dL BUN/Creatinine Ratio 31.00 H (12.00-20.00) Ratio Glucose 128 H (70-110) mg/dL POC Glucose (mg/dL) 127 H (75-99) mg/dL Magnesium 2.6 H (1.5-2.4) mg/dL Lactate Dehydrogenase 374 H (120-246) U/L Total Protein 5.5 L (6.2-8.2) g/dL Albumin 3.60 L (3.80-4.90) g/dL 09/29/20 Range/Units 09:16 WBC (3.8-10.6) k/uL Neutrophils # (1.3-7.7) k/uL Lymphocytes # (1.0-4.8) k/uL ABG pCO2 30 L (35-45) mmHg ABG pO2 58 L* (83-108) mmHg ABG HCO3 18 L (21-25) mmol/L ABG O2 Saturation 88.7 L (94-97) % Chloride (96-109) mmol/L BUN (9.0-27.0) mg/dL BUN/Creatinine Ratio (12.00-20.00) Ratio Glucose (70-110) mg/dL POC Glucose (mg/dL) (75-99) mg/dL Magnesium (1.5-2.4) mg/dL Lactate Dehydrogenase (120-246) U/L Total Protein (6.2-8.2) g/dL Albumin (3.80-4.90) g/dL Microbiology - Last 24 Hours (Table) 09/27/20 16:20 Blood Culture - Preliminary Blood No Growth after 24 hours Assessment and Plan Assessment: 1 Acute on chronic hypoxic respiratory failure related to acute COVID 19 pneumonitis, tested positive for COVID 19 2 days ago 2 Chronic hypoxic respiratory failure related to history of COPD and underlying interstitial lung disease, normally wears 4 L of oxygen on as-needed basis 3 Former smoker 4 History of hypothyroidism 5 Elevated inflammatory markers related to acute COVID 19 infection 6 Elevated d-dimer of 0.99 on admission, with no evidence of pulmonary embolism on CT chest Plan: The patient was seen and evaluated by Dr. Ott Chest x-ray, ABGs and labs reviewed Initiated on Remdesivir Continue Lovenox, steroids Continue vitamin supplements, Pepcid, melatonin Discontinue antibiotics Titrate down the FiO2 as tolerated We will continue to follow and make further recommendations based on his clinical status I, the cosigning physician, performed a history & physical examination of the patient. Lungs sounds bilateral scattered rhonchi, crackles in the bases, diminished. Maintaining good O2 saturations in the 90s on 15 L high flow nasal cannula along with nonrebreather mask. I discussed the assessment and plan of care with my nurse practitioner, Carolina Lamb. I attest to the above note as dictated by her.
[2020-09-29] MEDS: MELATONIN 5 MG TABLET PO SCH (22:17)
[2020-09-30] MEDS: methylPREDNISolone SOD SUCCI 125 MG/2 ML VIAL IV SCH ×4 (00:17→17:04)
[2020-09-30] MEDS: ALBUTEROL HFA INHALER INHALATION SCH ×5 (03:48→23:09)
[2020-09-30] MEDS: SODIUM CHLORIDE 0.9% 1,000 ML IV SCH ×3 (05:22→21:00)
[2020-09-30 07:21] LABS: Basophils # (A) 0.1 k/uL (0-0.2); Basophils % (A) 0 %; Eosinophils % (A) 0 %; HCT 45.1 % (39.0-53.0); HGB 14.3 gm/dL (13.0-17.5); Lymphocytes # (A) 0.6 k/uL (1.0-4.8); Lymphocytes % (A) 5 %; MCH 27.7 pg (25.0-35.0); MCHC 31.8 g/dL (31.0-37.0); Mean Platelet Volume 8.2; Monocytes # (A) 0.5 k/uL (0-1.0); Monocytes % (A) 5 %; Neutrophils # (A) 10.4 k/uL (1.3-7.7); Neutrophils % (A) 88 %; Platelet Count 388 k/uL (150-450); RBC 5.18 m/uL (4.30-5.90); RDW 13.1 % (11.5-15.5); WBC 11.8 k/uL (3.8-10.6)
[2020-09-30] MEDS: ZINC SULFATE 220 MG CAP PO SCH (08:14)
[2020-09-30] MEDS: LEVOTHYROXINE 75 MCG TAB PO SCH (08:14)
[2020-09-30] MEDS: FAMOTIDINE 20 MG TAB PO SCH ×2 (08:14→21:01)
[2020-09-30] MEDS: ENOXAPARIN 40 MG/0.4 ML SYRINGE SQ SCH (08:14)
[2020-09-30] MEDS: CHOLECALCIFEROL 400 UNIT TAB PO SCH (08:14)
[2020-09-30] MEDS: ASCORBIC ACID 500 MG TAB PO SCH (08:14)
[2020-09-30 11:35] LABS: African American GFR (CKD) 91.1 (60.0-200.0); Albumin 3.7 g/dL (3.80-4.90); Albumin/Globulin Ratio 1.85 (1.60-3.17); Anion Gap 8.5 mmol/L (4.00-12.00); C Reactive Protein 0.4 mg/dL (0.0-0.8); Calcium 8.9 mg/dL (8.7-10.3); Carbon Dioxide 22.5 mmol/L (21.6-31.8); Ferritin 893.7 ng/mL (22.0-322.0); Magnesium 2.6 mg/dL (1.5-2.4); Non-African American GFR(CKD) 78.6 (60.0-200.0); Potassium 4.7 mmol/L (3.5-5.5); Total Bilirubin 0.9 mg/dL (0.2-1.2); Total Protein 5.7 g/dL (6.2-8.2)
[2020-09-30] MEDS: REMDESIVIR 100 MG in SODIUM CHLORIDE 0.9% 250 ML IVPB SCH (12:15)
--- NOTE | 2020-09-30 15:44 | P.PN ---
Subjective Progress Note Date: 09/30/20 The patient was seen and examined at the bedside. He reported feeling somewhat the same since yesterday. He continues to require a nonrebreather mask with SpO2 94-95% on 15 L. He denied any additional complaints however. Denied chest pain, nausea, vomiting. Denied abdominal pain or diarrhea. Objective - Vital Signs Vital signs: Vital Signs Temp 97.7 F 09/30/20 14:00 Pulse 69 09/30/20 14:00 Resp 20 09/30/20 14:00 BP 144/75 09/30/20 14:00 Pulse Ox 97 09/30/20 14:00 Intake & Output 09/29/20 09/30/20 09/30/20 18:59 06:59 18:59 Intake Total 200 200 100 Balance 200 200 100 Intake: Oral 200 200 100 Other: Voiding Method Urinal # Voids 3 1 3 - Exam General: Non-toxic, in no acute distress, appears stated age, normal weight HEENT: NC/AT, anicteric sclerae, moist conjunctiva, no lid-lag, PERRLA Cardiovascular: S1/S2 wnl, no murmurs, rubs, or gallops Lungs: Scattered bilateral rhonchi, no rales or wheezing appreciated, normal respiratory effort, some accessory muscle use Abdominal: Soft, non-tender, non-distended, no guarding, rebound, or rigidity Skin: Warm, dry Extremities: No edema or contractures Psychiatric: Alert and oriented to person, place and time, anxious Neuro: CN II-XII grossly intact, no focal deficits noted - Labs CBC & Chem 7: 09/30/20 06:22 09/30/20 06:22 Labs: Abnormal Lab Results - Last 24 Hours (Table) 09/30/20 09/30/20 09/30/20 Range/Units 06:22 06:22 06:22 WBC 11.8 H (3.8-10.6) k/uL Neutrophils # 10.4 H (1.3-7.7) k/uL Lymphocytes # 0.6 L (1.0-4.8) k/uL D-Dimer 0.91 H (<0.60) mg/L FEU Chloride 110 H (96-109) mmol/L BUN 35.0 H (9.0-27.0) mg/dL BUN/Creatinine Ratio 35.00 H (12.00-20.00) Ratio Glucose 118 H (70-110) mg/dL Magnesium 2.6 H (1.5-2.4) mg/dL Ferritin 893.7 H (22.0-322.0) ng/mL Lactate Dehydrogenase 349 H (120-246) U/L Total Protein 5.7 L (6.2-8.2) g/dL Albumin 3.70 L (3.80-4.90) g/dL Microbiology - Last 24 Hours (Table) 09/27/20 16:20 Blood Culture - Preliminary Blood No Growth after 48 hours Assessment and Plan Plan: Acute COVID Pneumonitis with acute on chronic hypoxic respiratory failure (history of COPD) -Pulmonary recommendations appreciated -Continue with the Remdesivir, Solu-Medrol, prophylactic Lovenox, vitamin C, vitamin D, melatonin, zinc -Supplemental oxygen -Inflammatory markers improving -DuoNeb's -CT angiography negative for PE Chronic conditions: Hypertension, hyperlipidemia, hypothyroidism -Resume antihypertensives -Continue home Synthroid dose DVT prophylaxis -Lovenox Discussed with: Patient Anticipated discharge date: unknown Anticipated discharge place: Home A total of 35 minutes was spent on the care of this complex patient more than 50% of the time was spent in counseling and care coordination.
[2020-09-30] MEDS ORDERED: ALPRAZolam 0.25 MG TAB PO STA (17:27)
[2020-09-30] MEDS: MONTELUKAST 10 MG TAB PO SCH (21:01)
[2020-09-30] MEDS: ATORVASTATIN 20 MG TAB PO SCH (21:01)
[2020-09-30] MEDS: MELATONIN 5 MG TABLET PO SCH (21:01)
--- NOTE | 2020-09-30 21:15 | PN ---
PROGRESS NOTE INTERVAL HISTORY: This is a 65-year-old gentleman admitted on September 27. His admission diagnosis was acute on chronic hypoxemic respiratory failure secondary to COVID-19 pneumonitis/pneumonia. The patient has a history of chronic hypoxemic respiratory failure secondary to underlying COPD as well and also interstitial lung disease. He was a former smoker. He does wear oxygen at home at 4 L p.r.n. In addition, he has a history of hypothyroidism, elevated inflammatory markers secondary to Covid 19 infection, and elevated D-dimer on admission without evidence of PE on CT angiogram. PHYSICAL EXAMINATION: Clinically, the patient feels much improved. Currently, temperature is 97.7. Heart rate 69, respiratory rate 20, blood pressure 144/75, mean 98 and saturations are 97 to 98% on 15 L high flow O2. GENERAL: He appears in no acute distress. He does have mild conversational dyspnea and tachypneic. No audible wheezing. No use of accessory muscles. HEENT: Examination is grossly unremarkable. NECK is supple. Full range of motion. No adenopathy. Neck veins are flat. CARDIOVASCULAR: Examination reveals regular rhythm rate. Heart rate low 90s. S1, S2 normal. LUNGS: Reveal diffuse coarse rhonchi. No wheezes or crackles. ABDOMEN: Soft. Bowel sounds are heard. EXTREMITIES are intact. No cyanosis, clubbing, or edema. SKIN: Without rash. NEUROLOGIC: Examination is nonfocal. White count 11.8, hemoglobin 14.3, hematocrit 45.1, platelet count 388,000. D-dimer down to 0.91 from 1.07. Sodium and potassium normal. Chloride 110. CO2 22.5, anion gap is 8.5, BUN and creatinine were 35 and 1.0. The patient's ferritin is down to 893.7 from 1186. LDH is 349 down from 374 and procalcitonin level 0.03. Microbiology is currently negative. The most recent chest x-ray from September 29, shows bilateral peripheral infiltrates and pulmonary fibrotic changes. CURRENT MEDICATIONS: Reviewed. Currently, he is on Tylenol, vitamin C, albuterol inhaler, Lipitor, vitamin D3, Lovenox, Pepcid, DuoNeb, levothyroxine, lisinopril, melatonin, Solu-Medrol, Singulair, Narcan, Remdesivir and zinc. ASSESSMENT: 1. Acute on chronic hypoxemic respiratory failure secondary to COVID-19 pneumonitis, complicated by underlying chronic obstructive pulmonary disease and interstitial lung disease. 2. Chronic hypoxemic respiratory failure, currently on home O2 of 4 L p.r.n. 3. History of previous tobacco use. 4. History of hypothyroidism. 5. Elevated inflammatory markers related to acute COVID-19 infection. 6. No evidence of pulmonary embolism on CT angiogram. PLAN: The patient will continue with current medications. Antibiotics were discontinued given the low procalcitonin level. Continue Remdesivir for a total of 5 days, 200 mg on day 1, 100 mg day 2 through 5. Continue Decadron for 10 days. Continue vitamin C, vitamin D3, and zinc. No additional recommendations are made. Prognosis is guarded. Clinically, he feels better today. MMODL / IJN: [id number] /
[2020-10-01] MEDS: methylPREDNISolone SOD SUCCI 125 MG/2 ML VIAL IV SCH ×4 (01:25→18:08)
[2020-10-01] MEDS: ALBUTEROL HFA INHALER INHALATION SCH ×5 (03:38→20:21)
[2020-10-01] MEDS: LEVOTHYROXINE 75 MCG TAB PO SCH (06:07)
[2020-10-01 07:00] LABS: HCT 45.9 % (39.0-53.0); MCH 28.5 pg (25.0-35.0); MCHC 32.8 g/dL (31.0-37.0); MCV 86.8 fL (80.0-100.0); Mean Platelet Volume 7.7; Platelet Count 416 k/uL (150-450); RBC 5.29 m/uL (4.30-5.90); RDW 12.9 % (11.5-15.5); WBC 14.7 k/uL (3.8-10.6)
[2020-10-01] MEDS ORDERED: LEVOTHYROXINE 75 MCG TAB PO SCH (07:00)
[2020-10-01 07:30] LABS: Glucose,Whole Blood 154 mg/dL (75-99)
[2020-10-01] MEDS: ENOXAPARIN 40 MG/0.4 ML SYRINGE SQ SCH (08:36)
[2020-10-01] MEDS: FAMOTIDINE 20 MG TAB PO SCH ×2 (08:36→21:03)
[2020-10-01] MEDS: CHOLECALCIFEROL 400 UNIT TAB PO SCH (08:37)
[2020-10-01] MEDS: lisinopriL 20 MG TAB PO SCH (08:37)
[2020-10-01] MEDS: ZINC SULFATE 220 MG CAP PO SCH (08:37)
[2020-10-01] MEDS: ASCORBIC ACID 500 MG TAB PO SCH (08:37)
[2020-10-01] MEDS: SODIUM CHLORIDE 0.9% 1,000 ML IV SCH (08:39)
[2020-10-01] MEDS ORDERED: RANITIDINE HCL 150 MG PO SCH (09:00)
[2020-10-01 10:14] LABS: Ferritin 804.8 ng/mL (22.0-322.0)
[2020-10-01 10:15] LABS: ALT 28 U/L (10-49); AST 24 U/L (14-35); African American GFR (CKD) 91.1 (60.0-200.0); Albumin/Globulin Ratio 1.81 (1.60-3.17); Alkaline Phosphatase 71 U/L (41-126); C Reactive Protein <0.4 mg/dL (0.0-0.8); Calcium 8.8 mg/dL (8.7-10.3); Carbon Dioxide 24.9 mmol/L (21.6-31.8); Chloride 109 mmol/L (96-109); Globulin 2.1 g/dL (1.6-3.3); Glucose 121 mg/dL (70-110); Non-African American GFR(CKD) 78.6 (60.0-200.0); Potassium 4.9 mmol/L (3.5-5.5); Sodium 142 mmol/L (135-145); Total Bilirubin 1.2 mg/dL (0.3-1.2); Total Protein 5.9 g/dL (6.2-8.2)
[2020-10-01 12:16] LABS: Glucose,Whole Blood 127 mg/dL (75-99)
[2020-10-01] MEDS: REMDESIVIR 100 MG in SODIUM CHLORIDE 0.9% 250 ML IVPB SCH (12:24)
--- NOTE | 2020-10-01 16:13 | P.PN ---
Subjective Progress Note Date: 10/01/20 Patient is awake and alert. He is still requiring high flow oxygen on nonrebreather. He reported that his shortness of breath is about the same compared to yesterday. Objective - Vital Signs Vital signs: Vital Signs Temp 97.9 F 10/01/20 10:00 Pulse 69 10/01/20 10:00 Resp 22 10/01/20 10:00 BP 140/82 10/01/20 10:00 Pulse Ox 90 L 10/01/20 16:00 Intake & Output 09/30/20 10/01/20 10/01/20 18:59 06:59 18:59 Intake Total 100 Output Total 400 Balance -300 Intake: Oral 100 Output: Urine 400 Other: Voiding Method Urinal # Voids 3 - Exam General: The patient is awake and alert, in no distress Eye: there is normal conjunctiva bilaterally. Neck: The neck is supple, there is no JVD. Cardiovascular: Normal S1-S2, no S3-S4, no murmurs. Respiratory: Lungs clear to auscultation bilaterally Gastrointestinal: Abdomen is soft, nontender Musculoskeletal: There is no pedal edema. Neurological:. Speech is normal. Skin: Skin is warm and dry - Labs CBC & Chem 7: 10/01/20 06:25 10/01/20 06:25 Labs: Abnormal Lab Results - Last 24 Hours (Table) 10/01/20 10/01/20 10/01/20 Range/Units 06:25 06:25 06:25 WBC 14.7 H (3.8-10.6) k/uL D-Dimer 0.92 H (<0.60) mg/L FEU BUN 35.0 H (9.0-27.0) mg/dL BUN/Creatinine Ratio 35.00 H (12.00-20.00) Ratio Glucose 121 H (70-110) mg/dL POC Glucose (mg/dL) (75-99) mg/dL Ferritin 804.8 H (22.0-322.0) ng/mL Total Protein 5.9 L (6.2-8.2) g/dL 10/01/20 10/01/20 Range/Units 07:28 12:10 WBC (3.8-10.6) k/uL D-Dimer (<0.60) mg/L FEU BUN (9.0-27.0) mg/dL BUN/Creatinine Ratio (12.00-20.00) Ratio Glucose (70-110) mg/dL POC Glucose (mg/dL) 154 H 127 H (75-99) mg/dL Ferritin (22.0-322.0) ng/mL Total Protein (6.2-8.2) g/dL Microbiology - Last 24 Hours (Table) 09/27/20 16:20 Blood Culture - Preliminary Blood No Growth after 72 hours Assessment and Plan Assessment: Acute COVID Pneumonitis with acute on chronic hypoxic respiratory failure (history of COPD) on 4 L of oxygen at home -Pulmonary recommendations appreciated -Continue with the Remdesivir, Solu-Medrol 60 mg IV every 6 hours since admission would be transitioned to the Decadron 6 mg daily starting tomorrow, prophylactic Lovenox, vitamin C, vitamin D, melatonin, zinc -Supplemental oxygen -Inflammatory markers improving -CT angiography negative for PE Chronic conditions: Hypertension, hyperlipidemia, hypothyroidism -Resume antihypertensives -Continue home Synthroid dose DVT prophylaxis -Lovenox Discussed with: Patient Anticipated discharge date: unknown Anticipated discharge place: Home A total of 35 minutes was spent on the care of this complex patient more than 50% of the time was spent in counseling and care coordination.
[2020-10-01 17:15] LABS: Glucose,Whole Blood 107 mg/dL (75-99)
--- NOTE | 2020-10-01 19:31 | PN ---
PROGRESS NOTE PULMONARY/CRITICAL CARE PROGRESS NOTE: DATE OF SERVICE: 10/01/2020 65-year-old gentleman admitted on September 27. His admission diagnosis with acute on chronic hypoxemic respiratory failure secondary to COVID-19 pneumonitis/pneumonia. The patient does have a history of chronic hypoxemic respiratory failure secondary to underlying COPD as well as interstitial lung disease. He typically wears oxygen at home at 4 L/minute. Currently, he is doing reasonably well. He feels like he has improved. He is less short of breath. Still requiring a quite a bit of oxygen here. The patient was found not to have a pulmonary embolism on CT angiogram. He denies any chest pain or chest discomfort. Denies any fever or chills. He is not coughing much or any phlegm. PHYSICAL EXAMINATION: VITAL SIGNS: Current vital signs are reviewed. Temperature is 98, heart rate 73, respiratory rate 22, blood pressure 113/69, mean 83, saturations are 93% on 15 L high flow. Appears mildly tachypneic and dyspneic. No conversational dyspnea. No use of accessory muscles. No audible wheezing. HEENT: Examination is grossly unremarkable. High-flow nasal cannula noted along with a non-rebreather mask. NECK: Supple. Full range of motion. No adenopathy or thyromegaly. Neck veins are flat. CARDIOVASCULAR: Examination reveals regular rhythm rate. Heart rate 73. S1, S2 normal. LUNGS: Reveal coarse bilateral rhonchi. Breath sounds equal. Breath sounds are diminished throughout. No crackles. ABDOMEN: Soft. Bowel sounds are heard. EXTREMITIES are intact. No cyanosis, clubbing, or edema. SKIN: Without rash. NEUROLOGIC: Examination is nonfocal. White count 14.7, hemoglobin 15, hematocrit 45.9, platelet count 416,000. D-dimer 0.92. Sodium, potassium, chloride and CO2 all normal. Anion gap 8. BUN and creatinine were 35 and 1.0. Glucose 121. The ferritin is down to 804 from 893. The rest of the labs look okay. Procalcitonin level is low. Microbiology is currently negative. No recent chest x-ray. CURRENT MEDICATIONS: Reviewed. He is currently on Tylenol, albuterol inhaler, vitamin C, Lipitor, vitamin D3, Decadron, Lovenox, famotidine, DuoNeb, levothyroxine, lisinopril, melatonin, Singulair, Narcan, Remdesivir and zinc. ASSESSMENT: 1. Acute on chronic hypoxemic respiratory failure secondary to COVID-19 pneumonitis/pneumonia, complicated by underlying COPD and interstitial lung disease. 2. Chronic hypoxemic respiratory failure, currently on home O2 of 4 L/minute. 3. History of previous tobacco use. 4. History of hypothyroidism. 5. Elevated inflammatory markers related to acute COVID-19 infection. 6. No evidence of pulmonary embolism on CT angiogram. PLAN: I will DC the Decadron. We will add Symbicort. In addition, we will put him on high- dose Solu-Medrol. Additional recommendations and suggestions are forthcoming. Hopefully, we will be able to wean his oxygen requirements. SILVERL / RAFYN: [id number] /
[2020-10-01 20:18] LABS: Glucose,Whole Blood 162 mg/dL (75-99)
[2020-10-01] MEDS: SYMBICORT 160-4.5 MCG INHALER INHALATION SCH (20:21)
[2020-10-01] MEDS: ATORVASTATIN 20 MG TAB PO SCH (21:03)
[2020-10-01] MEDS: BENZONATATE 100 MG CAP PO PRN (21:03)
[2020-10-01] MEDS: MELATONIN 5 MG TABLET PO SCH (21:03)
[2020-10-01] MEDS: MONTELUKAST 10 MG TAB PO SCH (21:09)
[2020-10-02] MEDS: ALBUTEROL HFA INHALER INHALATION SCH ×9 (00:02→23:08)
[2020-10-02] MEDS: methylPREDNISolone SOD SUCCI 125 MG/2 ML VIAL IV SCH ×5 (01:07→23:17)
[2020-10-02] MEDS: BENZONATATE 100 MG CAP PO PRN ×2 (05:47→21:10)
[2020-10-02] MEDS: LEVOTHYROXINE 75 MCG TAB PO SCH (05:47)
[2020-10-02] MEDS: SYMBICORT 160-4.5 MCG INHALER INHALATION SCH ×3 (08:10→20:49)
[2020-10-02] MEDS: ZINC SULFATE 220 MG CAP PO SCH (08:35)
[2020-10-02] MEDS: ENOXAPARIN 40 MG/0.4 ML SYRINGE SQ SCH (08:36)
[2020-10-02] MEDS: ASCORBIC ACID 500 MG TAB PO SCH (08:36)
[2020-10-02] MEDS: FAMOTIDINE 20 MG TAB PO SCH ×2 (08:36→20:14)
[2020-10-02] MEDS: CHOLECALCIFEROL 400 UNIT TAB PO SCH (08:36)
[2020-10-02] MEDS: lisinopriL 20 MG TAB PO SCH (08:36)
[2020-10-02] MEDS ORDERED: dexAMETHasone 2 MG TAB PO SCH (09:00)
[2020-10-02] MEDS: REMDESIVIR 100 MG in SODIUM CHLORIDE 0.9% 250 ML IVPB SCH (11:39)
--- NOTE | 2020-10-02 11:47 | XR ---
EXAMINATION TYPE: XR chest 1V portable DATE OF EXAM: 10/02/2020 COMPARISON: Prior chest x-ray 09/29/[address] 09/27/2020 HISTORY: Increased shortness of breath, Covid pneumonia TECHNIQUE: Single frontal view of the chest is obtained. FINDINGS: Pleural parenchymal changes are similar to prior exam. No evident pneumothorax. Cardiac me diastinal silhouette, pulmonary vascularity and ganga are stable. Aorta is dense. There is underlying emphysema. IMPRESSION: There are likely some interstitial changes within the lungs, correlate for pneumonia.
--- NOTE | 2020-10-02 16:01 | P.PN ---
Subjective Progress Note Date: 10/02/20 Patient's overall condition is worsening today. He is feeling more shortness of breath and requiring more oxygen. He is currently on 15 L high flow nasal cannula and nonrebreather on top. His having shortness of breath with minimal exertion and even turning in bed. Objective - Vital Signs Vital signs: Vital Signs Temp 96.4 F L 10/02/20 14:00 Pulse 64 10/02/20 14:00 Resp 22 10/02/20 14:00 BP 118/65 10/02/20 14:00 Pulse Ox 97 10/02/20 15:42 Intake & Output 10/01/20 10/02/20 10/02/20 18:59 06:59 18:59 Output Total 350 725 Balance -350 -725 Output: Urine 350 725 Other: Voiding Method Urinal Urinal # Voids 3 # Emeses 1 - Exam General: The patient is awake and alert, in no distress Eye: there is normal conjunctiva bilaterally. Neck: The neck is supple, there is no JVD. Cardiovascular: Normal S1-S2, no S3-S4, no murmurs. Respiratory: Lungs with diffuse rhonchi and wheezing Gastrointestinal: Abdomen is soft, nontender Musculoskeletal: There is no pedal edema. Neurological:. Speech is normal. Skin: Skin is warm and dry - Labs CBC & Chem 7: 10/01/20 06:25 10/01/20 06:25 Labs: Abnormal Lab Results - Last 24 Hours (Table) 10/01/20 10/01/20 Range/Units 17:07 20:16 POC Glucose (mg/dL) 107 H 162 H (75-99) mg/dL Microbiology - Last 24 Hours (Table) 09/27/20 16:20 Blood Culture - Preliminary Blood No Growth after 96 hours Assessment and Plan Assessment: Acute COVID Pneumonitis with acute on chronic hypoxic respiratory failure (history of COPD) on 4 L of oxygen at home -Pulmonary recommendations appreciated -Continue with the Remdesivir, Solu-Medrol 60 mg IV every 6 hours, prophylactic Lovenox, vitamin C, vitamin D, melatonin, zinc -Supplemental oxygen -Inflammatory markers improving -CT angiography negative for PE -Repeat chest x-ray on 10/02 showed some interstitial changes within the lung concerning for pneumonia. Pro-calcitonin was normal. -Repeat inflammatory markers in the morning. Chronic conditions: Hypertension, hyperlipidemia, hypothyroidism -Resume antihypertensives -Continue home Synthroid dose DVT prophylaxis -Lovenox Discussed with: Patient Anticipated discharge date: unknown Anticipated discharge place: Home A total of 35 minutes was spent on the care of this complex patient more than 50% of the time was spent in counseling and care coordination.
--- NOTE | 2020-10-02 16:04 | P.PN ---
Subjective Progress Note Date: 10/02/20 Principal diagnosis: COVID 19 pneumonitis 65-year-old white male patient with a history of COPD, former smoker, on home oxygen at 4 L/m, was brought into the hospital on 09/27/2020 per EMS with the worsening shortness of breath, and worsening hypoxemia, patient was tested positive for COVID 19, 2 days ago. Upon initial evaluation by paramedics his pulse ox was 77% on 4 L, and his oxygen flow was increased to 15 L with a pulse ox of 90%. His chest x-ray showed scattered mid and lower lung field infiltrates. His lab work showed d-dimer 0.99, LDH of 869, CRP of 35, influenza screen was negative, lactic acid was 2.0, magnesium level is 2.7, blood gas was obtained on 100% FiO2 showing pO2 of 64, pCO2 31 and pH of 7.43. Patient was started on empiric antibiotics in the form of azithromycin and Rocephin, prophylactic dose of Lovenox, and IV Decadron 6 mg daily. He remains on high flow oxygen at 15 L, and his pulse ox is 93%, his breathing is labored. His CTA chest showed no evidence of pulmonary embolism, it did show moderately severe emphysematous changes and underlying pulmonary fibrosis. Patient states that he had bronchoscopy before and [place], however currently does not follow with a labor specialist, never had a lung biopsy for diagnosis of interstitial lung disease, his been on oxygen on as-needed basis, for a period of 10 years. During our evaluation patient is short of breath with conversation, his pulse ox is very marginal he is only sat 90-93%, on 15 L O2. On 10/02/2020 patient seen in follow-up on a general medical surgical floor, he still requiring high flow oxygen, currently on both 15 L high flow nasal cannula in 15 L nonrebreather with a pulse ox of 91-94%, he states his breathing is a bit easier, we place the patient on Airvo at 60 L and FiO2 of 92%, and his pulse ox is 97%, he is afebrile, he is on day 4 of Remdesivir treatment, is on high- dose IV steroids, he is on anticoagulation in the form of Lovenox. his blood cul tures shown no growth Objective - Vital Signs Vital signs: Vital Signs Temp 96.4 F L 10/02/20 14:00 Pulse 64 10/02/20 14:00 Resp 22 10/02/20 14:00 BP 118/65 10/02/20 14:00 Pulse Ox 97 10/02/20 15:42 Intake & Output 10/01/20 10/02/20 10/02/20 18:59 06:59 18:59 Output Total 350 725 Balance -350 -725 Output: Urine 350 725 Other: Voiding Method Urinal Urinal # Voids 3 # Emeses 1 - Exam GENERAL EXAM: Alert, very pleasant, 65-year-old white male, on 15 L of oxygen in the 100% nonrebreather, the pulse ox between 91%, dyspneic, tachypneic with conversation comfortable in no apparent distress. HEAD: Normocephalic/atraumatic. EYES: Normal reaction of pupils, equal size. Conjunctiva pink, sclera white. NOSE: Clear with pink turbinates. THROAT: No erythema or exudates. NECK: No masses, no JVD, no thyroid enlargement, no adenopathy. CHEST: No chest wall deformity. Symmetrical expansion. LUNGS: Equal air entry with diffuse crackles CVS: Regular rate and rhythm, normal S1 and S2, no gallops, no murmurs, no rubs ABDOMEN: Soft, nontender. No hepatosplenomegaly, normal bowel sounds, no guarding or rigidity. EXTREMITIES: clubbing noted in bilateral fingernails, no edema, no cyanosis, 2+ pulses and upper and lower extremities. MUSCULOSKELETAL: Muscle strength and tone normal. SPINE: No scoliosis or deformity SKIN: No rashes CENTRAL NERVOUS SYSTEM: Alert and oriented -3. No focal deficits, tone is normal in all 4 extremities. PSYCHIATRIC: Alert and oriented -3. Appropriate affect. Intact judgment and insight. - Labs CBC & Chem 7: 10/01/20 06:25 10/01/20 06:25 Labs: Abnormal Lab Results - Last 24 Hours (Table) 10/01/20 10/01/20 Range/Units 17:07 20:16 POC Glucose (mg/dL) 107 H 162 H (75-99) mg/dL Microbiology - Last 24 Hours (Table) 09/27/20 16:20 Blood Culture - Preliminary Blood No Growth after 96 hours Assessment and Plan Plan: Assessment: #1. Acute on chronic hypoxic respiratory failure related to acute COVID 19 pneumonitis, tested positive for COVID 19 2 days ago, patient was started on Remdesivir, and high-dose IV steroids 09/29/2020 #2. Chronic hypoxic respiratory failure related to history of COPD and underlying interstitial lung disease, normally wears 4 L of oxygen on as-needed basis #3. Former smoker #4. History of hypothyroidism #5. Elevated inflammatory markers related to acute COVID 19 infection #6. Elevated d-dimer of 0.99 on admission, with no evidence of pulmonary embolism on CT chest Plan: Continue current medical treatment, continue high-dose IV steroids, we'll place the patient on Airvo, vitamin C, zinc supplement, vitamin D, continue anticoagulation with prophylactic dose Lovenox, will continue to follow I performed a history & physical examination of the patient and discussed their management with my nurse practitioner, Morenita Abad. I reviewed the nurse practitioner's note and agree with the documented findings and plan of care. Lung sounds are positive for diminished breath sounds. The findings and the impression was discussed with the patient. I attest to the documentation by the nurse practitioner. Time with Patient: Less than 30
[2020-10-02] MEDS: ATORVASTATIN 20 MG TAB PO SCH (20:14)
[2020-10-02] MEDS: MONTELUKAST 10 MG TAB PO SCH (20:14)
[2020-10-02] MEDS: MELATONIN 5 MG TABLET PO SCH (20:14)
[2020-10-02 20:17] LABS: Glucose,Whole Blood 164 mg/dL (75-99)
[2020-10-03] MEDS: ALBUTEROL HFA INHALER INHALATION SCH ×5 (04:41→21:03)
[2020-10-03] MEDS: methylPREDNISolone SOD SUCCI 125 MG/2 ML VIAL IV SCH ×2 (06:06→13:00)
[2020-10-03] MEDS: LEVOTHYROXINE 75 MCG TAB PO SCH (06:07)
[2020-10-03 06:44] LABS: Basophils # (A) 0.1 k/uL (0-0.2); Basophils % (A) 0 %; Eosinophils % (A) 0 %; HCT 45.2 % (39.0-53.0); HGB 14.9 gm/dL (13.0-17.5); Lymphocytes # (A) 0.7 k/uL (1.0-4.8); Lymphocytes % (A) 5 %; MCH 28.6 pg (25.0-35.0); MCV 86.6 fL (80.0-100.0); Mean Platelet Volume 7.7; Monocytes # (A) 0.7 k/uL (0-1.0); Monocytes % (A) 4 %; Neutrophils # (A) 14.8 k/uL (1.3-7.7); Neutrophils % (A) 90 %; Platelet Count 388 k/uL (150-450); RBC 5.22 m/uL (4.30-5.90); RDW 12.8 % (11.5-15.5); WBC 16.5 k/uL (3.8-10.6)
[2020-10-03 06:45] LABS: Glucose,Whole Blood 106 mg/dL (75-99)
[2020-10-03] MEDS: FAMOTIDINE 20 MG TAB PO SCH ×2 (07:29→20:09)
[2020-10-03] MEDS: ENOXAPARIN 40 MG/0.4 ML SYRINGE SQ SCH (07:29)
[2020-10-03] MEDS: lisinopriL 20 MG TAB PO SCH (07:30)
[2020-10-03] MEDS: ZINC SULFATE 220 MG CAP PO SCH (07:30)
[2020-10-03] MEDS: CHOLECALCIFEROL 400 UNIT TAB PO SCH (07:30)
[2020-10-03] MEDS: ASCORBIC ACID 500 MG TAB PO SCH (07:30)
[2020-10-03] MEDS: SYMBICORT 160-4.5 MCG INHALER INHALATION SCH ×2 (08:49→21:03)
[2020-10-03] MEDS: REMDESIVIR 100 MG in SODIUM CHLORIDE 0.9% 250 ML IVPB SCH (11:32)
[2020-10-03 11:44] LABS: Glucose,Whole Blood 161 mg/dL (75-99)
[2020-10-03 12:08] LABS: African American GFR (CKD) 91.1 (60.0-200.0); C Reactive Protein <0.4 mg/dL (0.0-0.8); Calcium 8.4 mg/dL (8.7-10.3); Carbon Dioxide 22.9 mmol/L (21.6-31.8); Chloride 110 mmol/L (96-109); Ferritin 750.2 ng/mL (22.0-322.0); Glucose 121 mg/dL (70-110); LDH 308 U/L (120-246); Non-African American GFR(CKD) 78.6 (60.0-200.0); Potassium 5.2 mmol/L (3.5-5.5); Sodium 140 mmol/L (135-145)
--- NOTE | 2020-10-03 14:25 | P.PN ---
Subjective Patient is doing a lot better today. His shortness of breath is improving. Oxygen requirement remained elevated but significantly better compared to yesterday. Objective - Vital Signs Vital signs: Vital Signs Temp 98.3 F 10/03/20 14:00 Pulse 62 10/03/20 14:00 Resp 18 10/03/20 14:00 BP 107/58 10/03/20 14:00 Pulse Ox 97 10/03/20 14:00 Intake & Output 10/02/20 10/03/20 10/03/20 18:59 06:59 18:59 Output Total 725 400 Balance -725 -400 Weight 72.575 kg Output: Urine 725 400 Other: Voiding Method Urinal Urinal # Voids 2 1 # Emeses 1 - Exam General: The patient is awake and alert, in no distress Eye: there is normal conjunctiva bilaterally. Neck: The neck is supple, there is no JVD. Cardiovascular: Normal S1-S2, no S3-S4, no murmurs. Respiratory: Lungs clear to auscultation bilaterally Gastrointestinal: Abdomen is soft, nontender Musculoskeletal: There is no pedal edema. Neurological:. Speech is normal. Skin: Skin is warm and dry - Labs CBC & Chem 7: 10/03/20 06:30 10/03/20 06:30 Labs: Abnormal Lab Results - Last 24 Hours (Table) 10/02/20 10/03/20 10/03/20 Range/Units 20:15 06:30 06:30 WBC 16.5 H (3.8-10.6) k/uL Neutrophils # 14.8 H (1.3-7.7) k/uL Lymphocytes # 0.7 L (1.0-4.8) k/uL Chloride 110 H (96-109) mmol/L BUN 37.0 H (9.0-27.0) mg/dL BUN/Creatinine Ratio 37.00 H (12.00-20.00) Ratio Glucose 121 H (70-110) mg/dL POC Glucose (mg/dL) 164 H (75-99) mg/dL Calcium 8.4 L (8.7-10.3) mg/dL Ferritin 750.2 H (22.0-322.0) ng/mL Lactate Dehydrogenase 308 H (120-246) U/L 10/03/20 10/03/20 Range/Units 06:43 11:42 WBC (3.8-10.6) k/uL Neutrophils # (1.3-7.7) k/uL Lymphocytes # (1.0-4.8) k/uL Chloride (96-109) mmol/L BUN (9.0-27.0) mg/dL BUN/Creatinine Ratio (12.00-20.00) Ratio Glucose (70-110) mg/dL POC Glucose (mg/dL) 106 H 161 H (75-99) mg/dL Calcium (8.7-10.3) mg/dL Ferritin (22.0-322.0) ng/mL Lactate Dehydrogenase (120-246) U/L Microbiology - Last 24 Hours (Table) 09/27/20 16:20 Blood Culture - Preliminary Blood No Growth after 120 hours Assessment and Plan Assessment: Acute COVID Pneumonitis with acute on chronic hypoxic respiratory failure (history of COPD) on 4 L of oxygen at home -Pulmonary recommendations appreciated -Continue with the Remdesivir, Solu-Medrol 60 mg IV every 6 hours will be transitioned to 40 mg IV twice daily today, prophylactic Lovenox, vitamin C, vitamin D, melatonin, zinc -Supplemental oxygen currently on airflow -Inflammatory markers improving -CT angiography negative for PE -Repeat chest x-ray on 10/02 showed some interstitial changes within the lung concerning for pneumonia. Pro-calcitonin was normal. -Repeat inflammatory markers stable Chronic conditions: Hypertension, hyperlipidemia, hypothyroidism -Resume antihypertensives -Continue home Synthroid dose DVT prophylaxis -Lovenox Discussed with: Patient Anticipated discharge date: unknown Anticipated discharge place: Home A total of 35 minutes was spent on the care of this complex patient more than 50% of the time was spent in counseling and care coordination.
--- NOTE | 2020-10-03 15:22 | P.PN ---
Subjective Progress Note Date: 10/03/20 Principal diagnosis: COVID 19 pneumonitis 65-year-old white male patient with a history of COPD, former smoker, on home oxygen at 4 L/m, was brought into the hospital on 09/27/2020 per EMS with the worsening shortness of breath, and worsening hypoxemia, patient was tested positive for COVID 19, 2 days ago. Upon initial evaluation by paramedics his pulse ox was 77% on 4 L, and his oxygen flow was increased to 15 L with a pulse ox of 90%. His chest x-ray showed scattered mid and lower lung field infiltrates. His lab work showed d-dimer 0.99, LDH of 869, CRP of 35, influenza screen was negative, lactic acid was 2.0, magnesium level is 2.7, blood gas was obtained on 100% FiO2 showing pO2 of 64, pCO2 31 and pH of 7.43. Patient was started on empiric antibiotics in the form of azithromycin and Rocephin, prophylactic dose of Lovenox, and IV Decadron 6 mg daily. He remains on high flow oxygen at 15 L, and his pulse ox is 93%, his breathing is labored. His CTA chest showed no evidence of pulmonary embolism, it did show moderately severe emphysematous changes and underlying pulmonary fibrosis. Patient states that he had bronchoscopy before and [place], however currently does not follow with a principal bioinformatics specialist, never had a lung biopsy for diagnosis of interstitial lung disease, his been on oxygen on as-needed basis, for a period of 10 years. During our evaluation patient is short of breath with conversation, his pulse ox is very marginal he is only sat 90-93%, on 15 L O2. On 10/02/2020 patient seen in follow-up on a general medical surgical floor, he still requiring high flow oxygen, currently on both 15 L high flow nasal cannula in 15 L nonrebreather with a pulse ox of 91-94%, he states his breathing is a bit easier, we place the patient on Airvo at 60 L and FiO2 of 92%, and his pulse ox is 97%, he is afebrile, he is on day 4 of Remdesivir treatment, is on high- dose IV steroids, he is on anticoagulation in the form of Lovenox. his blood cul tures shown no growth On 10/03/2020 patient seen in follow-up on the general medical surgical floor, continues on high flow oxygen per Airvo at 60 l/min, Fio2 72%. He looks and feels slightly better today, although still requiring high flow oxygen. He remains on IV steroids, 40 mg twice daily, he completed his course of Remdesivir, he is on Lovenox prophylactic dose, oral Pepcid, and vitamins and supplements Objective - Vital Signs Vital signs: Vital Signs Temp 98.3 F 10/03/20 14:00 Pulse 62 10/03/20 14:00 Resp 18 10/03/20 14:00 BP 107/58 10/03/20 14:00 Pulse Ox 97 10/03/20 14:00 Intake & Output 10/02/20 10/03/20 10/03/20 18:59 06:59 18:59 Output Total 725 400 Balance -725 -400 Weight 72.575 kg Output: Urine 725 400 Other: Voiding Method Urinal Urinal # Voids 2 1 # Emeses 1 - Exam GENERAL EXAM: Alert, very pleasant, 65-year-old white male, on Airvo at 60 l/min, Fio2 72 the pulse ox between 91%-97, dyspneic, tachypneic with conversation comfortable in no apparent distress. HEAD: Normocephalic/atraumatic. EYES: Normal reaction of pupils, equal size. Conjunctiva pink, sclera white. NOSE: Clear with pink turbinates. THROAT: No erythema or exudates. NECK: No masses, no JVD, no thyroid enlargement, no adenopathy. CHEST: No chest wall deformity. Symmetrical expansion. LUNGS: Equal air entry with diffuse crackles CVS: Regular rate and rhythm, normal S1 and S2, no gallops, no murmurs, no rubs ABDOMEN: Soft, nontender. No hepatosplenomegaly, normal bowel sounds, no guarding or rigidity. EXTREMITIES: clubbing noted in bilateral fingernails, no edema, no cyanosis, 2+ pulses and upper and lower extremities. MUSCULOSKELETAL: Muscle strength and tone normal. SPINE: No scoliosis or deformity SKIN: No rashes CENTRAL NERVOUS SYSTEM: Alert and oriented -3. No focal deficits, tone is normal in all 4 extremities. PSYCHIATRIC: Alert and oriented -3. Appropriate affect. Intact judgment and insight. - Labs CBC & Chem 7: 10/03/20 06:30 10/03/20 06:30 Labs: Abnormal Lab Results - Last 24 Hours (Table) 10/02/20 10/03/20 10/03/20 Range/Units 20:15 06:30 06:30 WBC 16.5 H (3.8-10.6) k/uL Neutrophils # 14.8 H (1.3-7.7) k/uL Lymphocytes # 0.7 L (1.0-4.8) k/uL Chloride 110 H (96-109) mmol/L BUN 37.0 H (9.0-27.0) mg/dL BUN/Creatinine Ratio 37.00 H (12.00-20.00) Ratio Glucose 121 H (70-110) mg/dL POC Glucose (mg/dL) 164 H (75-99) mg/dL Calcium 8.4 L (8.7-10.3) mg/dL Ferritin 750.2 H (22.0-322.0) ng/mL Lactate Dehydrogenase 308 H (120-246) U/L 10/03/20 10/03/20 Range/Units 06:43 11:42 WBC (3.8-10.6) k/uL Neutrophils # (1.3-7.7) k/uL Lymphocytes # (1.0-4.8) k/uL Chloride (96-109) mmol/L BUN (9.0-27.0) mg/dL BUN/Creatinine Ratio (12.00-20.00) Ratio Glucose (70-110) mg/dL POC Glucose (mg/dL) 106 H 161 H (75-99) mg/dL Calcium (8.7-10.3) mg/dL Ferritin (22.0-322.0) ng/mL Lactate Dehydrogenase (120-246) U/L Microbiology - Last 24 Hours (Table) 09/27/20 16:20 Blood Culture - Preliminary Blood No Growth after 120 hours Assessment and Plan Plan: Assessment: #1. Acute on chronic hypoxic respiratory failure related to acute COVID 19 pneumonitis, tested positive for COVID 19 2 days ago, patient was started on Remdesivir, and high-dose IV steroids 09/29/2020 On 10/03/2020 patient is on Airvo at 60l/min, Fio2 of 72%, Pulse ox 91-97% #2. Chronic hypoxic respiratory failure related to history of COPD and underlying interstitial lung disease, normally wears 4 L of oxygen on as-needed basis #3. Former smoker #4. History of hypothyroidism #5. Elevated inflammatory markers related to acute COVID 19 infection #6. Elevated d-dimer of 0.99 on admission, with no evidence of pulmonary embolism on CT chest Plan: Continue current medical treatment, continue Airvo and titrate FiO2 to keep pulse ox of 90% or better. Completed course of Remdesivir, continue anticoagulation, we'll give it unit of convalescent plasma, feels slightly better today although still requiring high flow oxygen, we'll continue to follow I performed a history & physical examination of the patient and discussed their management with my nurse practitioner, Morenita Abad. I reviewed the nurse pra ctitioner's note and agree with the documented findings and plan of care. Lung sounds are positive for diminished breath sounds. The findings and the impression was discussed with the patient. I attest to the documentation by the nurse practitioner. Time with Patient: Less than 30
[2020-10-03 16:40] LABS: Glucose,Whole Blood 127 mg/dL (75-99)
[2020-10-03 19:58] LABS: Glucose,Whole Blood 135 mg/dL (75-99)
[2020-10-03] MEDS: MELATONIN 5 MG TABLET PO SCH (20:09)
[2020-10-03] MEDS: MONTELUKAST 10 MG TAB PO SCH (20:10)
[2020-10-03] MEDS: ATORVASTATIN 20 MG TAB PO SCH (20:10)
[2020-10-03] MEDS: methylPREDNISolone SOD SUCCI 40 MG/ML 1 ML VIAL IV SCH (20:10)
[2020-10-03] MEDS: BENZONATATE 100 MG CAP PO PRN (20:10)
[2020-10-04] MEDS: ALBUTEROL HFA INHALER INHALATION SCH ×6 (01:50→20:34)
[2020-10-04] MEDS: CALCIUM CARBONATE 500 MG CHEWABLE PO PRN ×2 (02:28→21:20)
[2020-10-04] MEDS: LEVOTHYROXINE 75 MCG TAB PO SCH (05:49)
[2020-10-04 07:04] LABS: Glucose,Whole Blood 28 mg/dL (75-99)
[2020-10-04 07:07] LABS: Glucose,Whole Blood 103 mg/dL (75-99)
[2020-10-04] MEDS: lisinopriL 20 MG TAB PO SCH (07:41)
[2020-10-04] MEDS: ASCORBIC ACID 500 MG TAB PO SCH (07:41)
[2020-10-04] MEDS: ENOXAPARIN 40 MG/0.4 ML SYRINGE SQ SCH (07:41)
[2020-10-04] MEDS: CHOLECALCIFEROL 400 UNIT TAB PO SCH (07:41)
[2020-10-04] MEDS: methylPREDNISolone SOD SUCCI 40 MG/ML 1 ML VIAL IV SCH ×2 (07:41→21:15)
[2020-10-04] MEDS: ZINC SULFATE 220 MG CAP PO SCH (07:41)
[2020-10-04] MEDS: FAMOTIDINE 20 MG TAB PO SCH ×2 (07:41→21:15)
[2020-10-04] MEDS: SYMBICORT 160-4.5 MCG INHALER INHALATION SCH ×2 (08:15→20:34)
[2020-10-04 09:52] LABS: C Reactive Protein <0.4 mg/dL (0.0-0.8); LDH 365 U/L (120-246)
[2020-10-04 11:38] LABS: Glucose,Whole Blood 99 mg/dL (75-99)
--- NOTE | 2020-10-04 14:50 | P.PN ---
Subjective Progress Note Date: 10/04/20 Patient is doing well today. He still maintained on AirVo satting around 90%. He denies shortness of breath. Objective - Vital Signs Vital signs: Vital Signs Temp 98.1 F 10/04/20 14:00 Pulse 59 L 10/04/20 14:00 Resp 18 10/04/20 14:00 BP 95/55 10/04/20 14:00 Pulse Ox 94 L 10/04/20 14:00 Intake & Output 10/03/20 10/04/20 10/04/20 18:59 06:59 18:59 Intake Total 196 Output Total 300 Balance -300 196 Weight 72.575 kg Intake: Blood Product 196 Ffp Pher Conval Covid19 196 Acda 4 Unit [id number] Output: Urine 300 Other: Voiding Method Urinal # Voids 1 # Bowel Movements 1 - Exam General: The patient is awake and alert, in no distress Eye: there is normal conjunctiva bilaterally. Neck: The neck is supple, there is no JVD. Cardiovascular: Normal S1-S2, no S3-S4, no murmurs. Respiratory: Lungs clear to auscultation bilaterally Gastrointestinal: Abdomen is soft, nontender Musculoskeletal: There is no pedal edema. Neurological:. Speech is normal. Skin: Skin is warm and dry - Labs CBC & Chem 7: 10/03/20 06:30 10/03/20 06:30 Labs: Abnormal Lab Results - Last 24 Hours (Table) 10/03/20 10/03/20 10/04/20 Range/Units 16:35 19:55 06:15 D-Dimer 0.67 H (<0.60) mg/L FEU POC Glucose (mg/dL) 127 H 135 H (75-99) mg/dL Lactate Dehydrogenase (120-246) U/L 10/04/20 10/04/20 10/04/20 Range/Units 06:15 07:00 07:04 D-Dimer (<0.60) mg/L FEU POC Glucose (mg/dL) 28 L 103 H (75-99) mg/dL Lactate Dehydrogenase 365 H (120-246) U/L Microbiology - Last 24 Hours (Table) 09/27/20 16:20 Blood Culture - Final Blood No Growth after 144 hours Assessment and Plan Assessment: Acute COVID Pneumonitis with acute on chronic hypoxic respiratory failure (history of COPD) on 4 L of oxygen at home -Pulmonary recommendations appreciated -Continue with the Remdesivir, Solu-Medrol 40 mg IV every 12 hours, prophylactic Lovenox, vitamin C, vitamin D, melatonin, zinc -Supplemental oxygen currently on airflow -Inflammatory markers improving -CT angiography negative for PE -Repeat chest x-ray on 10/02 showed some interstitial changes within the lung concerning for pneumonia. Pro-calcitonin was normal. -Repeat inflammatory markers stable Chronic conditions: Hypertension, hyperlipidemia, hypothyroidism -Resume antihypertensives -Continue home Synthroid dose DVT prophylaxis -Lovenox The main problem right now for the patient is high oxygen requirement. We will continue to monitor clinical status closely and wean as tolerated. Unable to wean down from AirVo today as patient is satting 88-90%. Discussed with: Patient Anticipated discharge date: unknown Anticipated discharge place: Home A total of 35 minutes was spent on the care of this complex patient more than 50% of the time was spent in counseling and care coordination.
--- NOTE | 2020-10-04 14:56 | PN ---
PROGRESS NOTE PULMONARY/CRITICAL CARE PROGRESS NOTE: DATE OF SERVICE: 10/04/2020 A 65-year-old male who was admitted on September 27 for COVID-19 pneumonitis. The patient was given and started on Remdesivir as well as high dose of corticosteroids. Currently, he remains on AIRVO. He states he is feeling a bit better. He has improved slightly, but not a lot. His complaints include shortness of breath, tightness, cough, congestion, and minimal phlegm production. PHYSICAL EXAMINATION: VITAL SIGNS: Current vital signs are reviewed temperature is 98.5 heart rate 71, respiratory rate 18, blood pressure 119/65 mean 83, and AIRVO settings are 60 L/minute and FiO2 of 60%. This improved from yesterday. HEENT: Examination is grossly unremarkable. AIRVO cannula noted. NECK: Supple full range of motion. No adenopathy or thyromegaly. Neck veins are flat. CARDIOVASCULAR: Examination reveals regular rhythm and rate. Heart rate 71 beats per minute. S1, S2 normal. No S3, S4, or murmur. LUNGS: Reveal diffuse coarse rhonchi. Breath sounds diminished. There is prolongation. No crackles are noted. ABDOMEN: Soft bowel sounds are heard. EXTREMITIES: Intact. No edema. SKIN: Without rash. NEUROLOGIC: Examination is nonfocal. LABS: Reviewed from 10/04, D-dimer was 0.67 down from 0.92, glucose 99, LDH was 365, and C- reactive protein less than 0.04. Microbiology is negative. No recent x-ray to report. MEDICATIONS: Reviewed. The patient is on Tylenol, albuterol inhaler, vitamin C, Lipitor, Tessalon Perles, Symbicort, calcium carbonate tablets, vitamin D3, Lovenox, Pepcid, DuoNeb, levothyroxine, lisinopril, melatonin, Solu-Medrol, Singulair, and zinc. ASSESSMENT: 1. Acute on chronic hypoxemic respiratory failure secondary to secondary to acute COVID-19 pneumonitis/pneumonia, treated with both Remdesivir and high-dose corticosteroids. 2. Hypoxemic respiratory failure, currently requiring AIRVO at 60 L/minute and FiO2 of 60%, improved from yesterday where he was on 72%. 3. Chronic hypoxemic respiratory failure secondary to COPD and underlying interstitial lung disease. 4. Previous tobacco use. 5. History of hypothyroidism. 6. Elevated inflammatory markers related to acute COVID-19 infection. 7. Elevated D-dimer on admission, without evidence of pulmonary embolism on CT angiogram. PLAN: The patient continues to give us a thumbs up sign when we go and see him. He feels like he is improving albeit slowly. He is on maximal medical therapy. Will continue to follow. Prognosis is guarded. Hopefully, he will continue to improve. MMODL / IJN: [id number] /
[2020-10-04 16:35] LABS: Glucose,Whole Blood 99 mg/dL (75-99)
[2020-10-04 20:58] LABS: Glucose,Whole Blood 105 mg/dL (75-99)
[2020-10-04] MEDS: MONTELUKAST 10 MG TAB PO SCH (21:15)
[2020-10-04] MEDS: MELATONIN 5 MG TABLET PO SCH (21:15)
[2020-10-04] MEDS: BENZONATATE 100 MG CAP PO PRN (21:15)
[2020-10-04] MEDS: ATORVASTATIN 20 MG TAB PO SCH (21:15)
[2020-10-05] MEDS: ALBUTEROL HFA INHALER INHALATION SCH ×5 (02:03→19:24)
[2020-10-05] MEDS: CALCIUM CARBONATE 500 MG CHEWABLE PO PRN ×2 (05:40→19:50)
[2020-10-05] MEDS: LEVOTHYROXINE 75 MCG TAB PO SCH (05:40)
[2020-10-05 07:15] LABS: Glucose,Whole Blood 97 mg/dL (75-99)
[2020-10-05] MEDS: ZINC SULFATE 220 MG CAP PO SCH (07:37)
[2020-10-05] MEDS: FAMOTIDINE 20 MG TAB PO SCH ×2 (07:37→19:50)
[2020-10-05] MEDS: CHOLECALCIFEROL 400 UNIT TAB PO SCH (07:37)
[2020-10-05] MEDS: lisinopriL 20 MG TAB PO SCH (07:37)
[2020-10-05] MEDS: methylPREDNISolone SOD SUCCI 40 MG/ML 1 ML VIAL IV SCH (07:37)
[2020-10-05] MEDS: ASCORBIC ACID 500 MG TAB PO SCH (07:37)
[2020-10-05] MEDS: ENOXAPARIN 40 MG/0.4 ML SYRINGE SQ SCH (07:38)
[2020-10-05] MEDS: SYMBICORT 160-4.5 MCG INHALER INHALATION SCH ×2 (09:37→19:24)
--- NOTE | 2020-10-05 10:39 | P.PN ---
Subjective Progress Note Date: 10/05/20 Patient is still having problems with vomiting. He denies any abdominal pain. Last bowel movement was the day before yesterday. He denies any nausea at this time. He vomited after breakfast. Abdomen is slightly distended but nontender. Objective - Vital Signs Vital signs: Vital Signs Temp 97.3 F L 10/05/20 09:51 Pulse 72 10/05/20 09:51 Resp 20 10/05/20 09:51 BP 112/55 10/05/20 09:51 Pulse Ox 90 L 10/05/20 09:51 Intake & Output 10/04/20 10/05/20 10/05/20 18:59 06:59 18:59 Intake Total 300 Output Total 300 Balance -300 300 Weight 72.575 kg Intake: Oral 300 Output: Urine 300 Other: Voiding Method Urinal Urinal # Voids 1 # Emeses 2 - Exam General: The patient is awake and alert, in no distress Eye: there is normal conjunctiva bilaterally. Neck: The neck is supple, there is no JVD. Cardiovascular: Normal S1-S2, no S3-S4, no murmurs. Respiratory: Lungs clear to auscultation bilaterally Gastrointestinal: Abdomen is soft, nontender Musculoskeletal: There is no pedal edema. Neurological:. Speech is normal. Skin: Skin is warm and dry - Labs CBC & Chem 7: 10/03/20 06:30 10/03/20 06:30 Labs: Abnormal Lab Results - Last 24 Hours (Table) 10/04/20 Range/Units 20:56 POC Glucose (mg/dL) 105 H (75-99) mg/dL Assessment and Plan Assessment: Acute COVID Pneumonitis with acute on chronic hypoxic respiratory failure (history of COPD) on 4 L of oxygen at home -Pulmonary recommendations appreciated -Continue with the Remdesivir, Solu-Medrol 40 mg IV daily, prophylactic Lovenox, vitamin C, vitamin D, melatonin, zinc -Supplemental oxygen currently on airvo this morning but was able to transition to 15 L high flow nasal cannula -Inflammatory markers improving -CT angiography negative for PE -Repeat chest x-ray on 10/02 showed some interstitial changes within the lung concerning for pneumonia. Pro-calcitonin was normal. -Repeat inflammatory markers stable Chronic conditions: Hypertension, hyperlipidemia, hypothyroidism -Resume antihypertensives -Continue home Synthroid dose DVT prophylaxis -Lovenox Given her recurrent episodes of vomiting would obtain abdominal x-ray for further evaluation The main problem right now for the patient is high oxygen requirement. We will continue to monitor clinical status closely and wean as tolerated. Discussed with: Patient Anticipated discharge date: unknown Anticipated discharge place: Home A total of 35 minutes was spent on the care of this complex patient more than 50% of the time was spent in counseling and care coordination.
[2020-10-05 11:20] LABS: Basophils # (A) 0.1 k/uL (0-0.2); Basophils % (A) 1 %; Eosinophils % (A) 0 %; HCT 45.6 % (39.0-53.0); HGB 15.2 gm/dL (13.0-17.5); Lymphocytes # (A) 0.4 k/uL (1.0-4.8); Lymphocytes % (A) 2 %; MCHC 33.3 g/dL (31.0-37.0); MCV 87.2 fL (80.0-100.0); Mean Platelet Volume 8.1; Monocytes # (A) 0.6 k/uL (0-1.0); Monocytes % (A) 3 %; Neutrophils # (A) 18.8 k/uL (1.3-7.7); Neutrophils % (A) 94 %; Platelet Count 366 k/uL (150-450); RBC 5.24 m/uL (4.30-5.90); RDW 12.6 % (11.5-15.5); WBC 19.9 k/uL (3.8-10.6)
[2020-10-05 11:44] LABS: Glucose,Whole Blood 110 mg/dL (75-99)
--- NOTE | 2020-10-05 13:43 | XR ---
EXAMINATION TYPE: XR abdomen acute w cxr DATE OF EXAM: 10/05/2020 COMPARISON: Chest 10/02/2020 HISTORY: 65-year-old male with vomiting TECHNIQUE: Supine, upright, and left side down lateral decubitus views of the abdomen are obtained. FINDINGS: Frontal view of the chest shows continued patchy interstitial change in the periphery of the mid and lower lungs. No evidence for free intraperitoneal air. No dilated small bowel prominent air-filled loops of small bowel are present throughout especially on the left side. No air-fluid levels are seen. Scattered air throughout the colon. Mild overall spinal burning particularly on the right side of the abdomen. No suspicious calcifications seen IMPRESSION: 1. Chest: Continued patchy peripheral interstitial infiltrates which can be seen with COVID pneumonia . 2. Abdomen: Prominent gaseous small bowel loops could represent enteritis or ileus. No evidence for f ree air or bowel obstruction.
--- NOTE | 2020-10-05 15:50 | PN ---
PROGRESS NOTE PULMONARY/CRITICAL CARE PROGRESS NOTE: DATE OF SERVICE: October 05, 2020 INTERVAL HISTORY: A 65-year-old male admitted on September 27 for COVID-19 pneumonitis. The patient was started on remdesivir, as well as high-dose corticosteroids. Currently, he seems to be doing a bit better. He is less short of breath. Today, he went for abdominal films because of abdominal distention and pain. Shortness of breath is improved. He does complain of tightness and cough. Most of the shortness of breath occurs with exertion. PHYSICAL EXAMINATION: VITAL SIGNS: Current vital signs are reviewed. Temperature 97.9, heart rate 67, respiratory rate 16, blood pressure 107/60, mean 75, saturations are hanging right around 90-93 percent on 15 L high flow. That is an improvement. HEENT: Examination is grossly unremarkable. Nasal cannula is noted. NECK: Supple. Full range of motion. No adenopathy. Neck veins are flat. CARDIOVASCULAR: Examination reveals regular rhythm and rate. Heart rate 67 beats per minute. S1, S2 normal. No S3, S4, or murmur. LUNGS: A few scattered rhonchi. No wheezes or crackles. ABDOMEN: Soft. Bowel sounds are heard. EXTREMITIES: Intact. No cyanosis, clubbing, or edema. SKIN: Without rash. NEUROLOGIC: Examination is nonfocal. LABS: Reviewed. White count 19.9, hemoglobin 15.2, hematocrit 45.6, platelet count 366, Microbiology is currently negative. IMAGING: Acute abdominal series was done today and showed some patchy peripheral interstitial infiltrates consistent with COVID-19 pneumonia. There was prominent gaseous small bowel loops, which could represent an enteritis or ileus. There was no evidence of free air or bowel obstruction. CURRENT MEDICATIONS: Reviewed. He is on Tylenol, albuterol inhaler, vitamin C, Lipitor, Tessalon Perles, Symbicort, calcium carbonate tablets, vitamin D3, Lovenox, Pepcid, Synthroid, Zestril, melatonin, Solu-Medrol, Singulair, Narcan, saline nasal spray, and zinc. ASSESSMENT: 1. Acute on chronic hypoxemic respiratory failure, secondary to acute COVID-19 pneumonia, treated with both Remdesivir and high-dose corticosteroids, improved. 2. Hypoxemic respiratory failure, currently weaned from AIRVO to 15 L high-flow nasal O2. 3. History of underlying chronic obstructive pulmonary disease with interstitial lung disease. 4. Previous tobacco use. 5. History of hypothyroidism. 6. History of elevated D-dimer on admission, without evidence of pulmonary embolism on CT angiogram. 7. Elevated inflammatory markers secondary to acute COVID-19 infection. PLAN: The patient's AIRVO has been discontinued in favor of high-flow nasal O2. That is an improvement. The abdominal x-rays are reviewed. Clinically, he is improved. He feels much less short of breath. We will continue to follow. Prognosis is guarded. No additional recommendations are made. MMODL / IJN: [id number] /
[2020-10-05 17:19] LABS: Glucose,Whole Blood 151 mg/dL (75-99)
[2020-10-05 18:31] LABS: ALT 45 U/L (10-49); AST 21 U/L (14-35); African American GFR (CKD) 81.2 (60.0-200.0); Albumin/Globulin Ratio 1.95 (1.60-3.17); Alkaline Phosphatase 72 U/L (41-126); BUN/Creat Ratio 37.27 Ratio (12.00-20.00); C Reactive Protein <0.4 mg/dL (0.0-0.8); Calcium 8.7 mg/dL (8.7-10.3); Carbon Dioxide 23.3 mmol/L (21.6-31.8); Chloride 104 mmol/L (96-109); Ferritin 1187.6 ng/mL (22.0-322.0); Globulin 1.9 g/dL (1.6-3.3); Glucose 116 mg/dL (70-110); LDH 377 U/L (120-246); Magnesium 2.4 mg/dL (1.5-2.4); Non-African American GFR(CKD) 70.1 (60.0-200.0); Potassium 5.2 mmol/L (3.5-5.5); Sodium 135 mmol/L (135-145); Total Bilirubin 1.1 mg/dL (0.3-1.2); Total Protein 5.6 g/dL (6.2-8.2)
[2020-10-05] MEDS: MELATONIN 5 MG TABLET PO SCH (19:50)
[2020-10-05] MEDS: MONTELUKAST 10 MG TAB PO SCH (19:50)
[2020-10-05] MEDS: ATORVASTATIN 20 MG TAB PO SCH (19:50)
[2020-10-05 20:19] LABS: Glucose,Whole Blood 130 mg/dL (75-99)
[2020-10-06] MEDS: CALCIUM CARBONATE 500 MG CHEWABLE PO PRN ×2 (00:11→19:39)
[2020-10-06] MEDS: ALBUTEROL HFA INHALER INHALATION SCH ×6 (00:16→19:22)
[2020-10-06 07:01] LABS: Glucose,Whole Blood 70 mg/dL (75-99)
[2020-10-06] MEDS: SALINE NASAL GEL 14.1 GM TUBE TOPICAL PRN (07:53)
[2020-10-06] MEDS: LEVOTHYROXINE 75 MCG TAB PO SCH (07:54)
[2020-10-06] MEDS: ASCORBIC ACID 500 MG TAB PO SCH (07:54)
[2020-10-06] MEDS: CHOLECALCIFEROL 400 UNIT TAB PO SCH (07:54)
[2020-10-06] MEDS: ZINC SULFATE 220 MG CAP PO SCH (07:54)
[2020-10-06] MEDS: lisinopriL 20 MG TAB PO SCH (07:54)
[2020-10-06] MEDS: FAMOTIDINE 20 MG TAB PO SCH ×2 (07:54→19:39)
[2020-10-06] MEDS: methylPREDNISolone SOD SUCCI 40 MG/ML 1 ML VIAL IV SCH (07:55)
[2020-10-06] MEDS: ENOXAPARIN 40 MG/0.4 ML SYRINGE SQ SCH (07:55)
[2020-10-06] MEDS ORDERED: SODIUM CHLORIDE 0.9% 1,000 ML IV SCH (09:15)
[2020-10-06] MEDS ORDERED: polyethylene glycoL 3350 17 GM POWD.PACK PO STA (09:49)
--- NOTE | 2020-10-06 10:07 | P.PN ---
Subjective Progress Note Date: 10/06/20 Patient is still vomiting. Last episode of vomiting last night. He is passing gas. Abdominal x-ray yesterday showed early ileus Patient was on 15 L high flow nasal cannula throughout the day yesterday but then started the setting and a nonrebreather was added on top Objective - Vital Signs Vital signs: Vital Signs Temp 97.4 F L 10/06/20 05:35 Pulse 63 10/06/20 05:35 Resp 18 10/06/20 05:35 BP 92/58 10/06/20 05:35 Pulse Ox 94 L 10/06/20 05:35 Intake & Output 10/05/20 10/06/20 10/06/20 18:59 06:59 18:59 Intake Total 500 Output Total 600 400 Balance 500 -600 -400 Intake: Oral 500 Output: Urine 600 400 Other: Voiding Method Urinal Urinal Urinal # Voids 1 1 # Emeses 2 - Exam General: The patient is awake and alert, in no distress Eye: there is normal conjunctiva bilaterally. Neck: The neck is supple, there is no JVD. Cardiovascular: Normal S1-S2, no S3-S4, no murmurs. Respiratory: Lungs clear to auscultation bilaterally Gastrointestinal: Abdomen is soft, nontender Musculoskeletal: There is no pedal edema. Neurological:. Speech is normal. Skin: Skin is warm and dry - Labs CBC & Chem 7: 10/05/20 11:01 10/05/20 11:01 Labs: Abnormal Lab Results - Last 24 Hours (Table) 10/05/20 10/05/20 10/05/20 Range/Units 11:01 11:01 11:40 WBC 19.9 H (3.8-10.6) k/uL Neutrophils # 18.8 H (1.3-7.7) k/uL Lymphocytes # 0.4 L (1.0-4.8) k/uL BUN 41.0 H (9.0-27.0) mg/dL BUN/Creatinine Ratio 37.27 H (12.00-20.00) Ratio Glucose 116 H (70-110) mg/dL POC Glucose (mg/dL) 110 H (75-99) mg/dL Ferritin 1187.6 H (22.0-322.0) ng/mL Lactate Dehydrogenase 377 H (120-246) U/L Total Protein 5.6 L (6.2-8.2) g/dL Albumin 3.70 L (3.80-4.90) g/dL 10/05/20 10/05/20 10/06/20 Range/Units 17:03 20:18 06:50 WBC (3.8-10.6) k/uL Neutrophils # (1.3-7.7) k/uL Lymphocytes # (1.0-4.8) k/uL BUN (9.0-27.0) mg/dL BUN/Creatinine Ratio (12.00-20.00) Ratio Glucose (70-110) mg/dL POC Glucose (mg/dL) 151 H 130 H 70 L (75-99) mg/dL Ferritin (22.0-322.0) ng/mL Lactate Dehydrogenase (120-246) U/L Total Protein (6.2-8.2) g/dL Albumin (3.80-4.90) g/dL Assessment and Plan Assessment: Acute COVID Pneumonitis with acute on chronic hypoxic respiratory failure (history of COPD) on 4 L of oxygen at home -Pulmonary recommendations appreciated -Continue with the Remdesivir, Solu-Medrol 40 mg IV daily, prophylactic Lovenox, vitamin C, vitamin D, melatonin, zinc -Supplemental oxygen currently on 15 L high flow nasal cannula and a nonrebreather on top -Inflammatory markers improving -CT angiography negative for PE -Repeat chest x-ray on 10/02 showed some interstitial changes within the lung concerning for pneumonia. Pro-calcitonin was normal. -Repeat inflammatory markers stable Early ileus -Nothing by mouth today. Start IV fluid hydration with 50 mL per hour normal saline -1 time dose of MiraLAX today Chronic conditions: Hypertension, hyperlipidemia, hypothyroidism -Resume antihypertensives -Continue home Synthroid dose DVT prophylaxis -Lovenox The main problem right now for the patient is high oxygen requirement. We will continue to monitor clinical status closely and wean as tolerated. Discussed with: Patient Anticipated discharge date: unknown Anticipated discharge place: Home A total of 35 minutes was spent on the care of this complex patient more than 50% of the time was spent in counseling and care coordination.
[2020-10-06] MEDS: SODIUM CHLORIDE 0.9% 1,000 ML IV SCH (10:57)
[2020-10-06] MEDS: SYMBICORT 160-4.5 MCG INHALER INHALATION SCH ×2 (11:19→19:22)
[2020-10-06 11:33] LABS: Glucose,Whole Blood 126 mg/dL (75-99)
--- NOTE | 2020-10-06 16:46 | P.PN ---
Subjective Progress Note Date: 10/06/20 Principal diagnosis: Acute on chronic hypoxic respiratory failure secondary to CoVID 19 pneumonitis 65-year-old white male patient with a history of COPD, former smoker, on home o xygen at 4 L/m, was brought into the hospital on 09/27/2020 per EMS with the worsening shortness of breath, and worsening hypoxemia, patient was tested positive for COVID 19, 2 days ago. Upon initial evaluation by paramedics his pulse ox was 77% on 4 L, and his oxygen flow was increased to 15 L with a pulse ox of 90%. His chest x-ray showed scattered mid and lower lung field infiltrates. His lab work showed d-dimer 0.99, LDH of 869, CRP of 35, influenza screen was negative, lactic acid was 2.0, magnesium level is 2.7, blood gas was obtained on 100% FiO2 showing pO2 of 64, pCO2 31 and pH of 7.43. Patient was started on empiric antibiotics in the form of azithromycin and Rocephin, prophylactic dose of Lovenox, and IV Decadron 6 mg daily. He remains on high flow oxygen at 15 L, and his pulse ox is 93%, his breathing is labored. His CTA chest showed no evidence of pulmonary embolism, it did show moderately severe emphysematous changes and underlying pulmonary fibrosis. Patient states that he had bronchoscopy before and [place], however currently does not follow with a piercing specialist, never had a lung biopsy for diagnosis of interstitial lung disease, his been on oxygen on as-needed basis, for a period of 10 years. During our evaluation patient is short of breath with conversation, his pulse ox is very marginal he is only sat 90-93%, on 15 L O2. Patient was reevaluated today on 09/28/20, I evaluated the patient again in the ER this morning, and I'll arrange for the patient to be admitted to the floor instead of going to the ICU. Patient is feeling much better today compared to how he felt yesterday. Remains on high flow cannula at 15 L/m, patient is feeling better, breathing easier, his O2 saturation is 94%. He had a T-max of 98.9. Blood pressure is 169/72 heart rate is 104. Electrolytes are normal BUN is down to 45 creatinine is down to 1.25. Patient is tolerating remdesivir and the Covid 19 cocktail quite well. The patient is seen today 09/29/2020 in follow-up on the regular medical floor. He is currently required 15 L high flow nasal cannula in addition to a nonrebreather mask. He had issues with O2 saturations in the upper 70s earlier this morning. Chest x-ray continued to show chronic emphysematous changes and pulmonary fibrotic changes with persistent bilateral peripheral acute infiltrates. No significant change compared to previous on 09/27/2020. Arterial blood gases revealed a pO2 of 58, pCO2 of 30 and a pH is 7.3 800% FiO2. The patient had been ordered Remdesivir while still in the emergency room the initial night however the order was not processed to the regular medical floor. He is initiated on it today. He has been continued on Lovenox for DVT prophylaxis, IV Solu-Medrol, Pepcid, melatonin, zinc, vitamin C, vitamin D. White count 10.7. Hemoglobin 14.0. Sodium 142. Potassium 4.8. LDH 374. Pro-calcitonin 0.03. Antibiotics will be discontinued. The patient is seen today 10/06/2020 in follow-up on the regular medical floor. He is currently resting fairly comfortably in bed. Awake and alert in no acute distress. Still requiring 15 L high flow nasal cannula to maintain O2 saturations in the 90s. He is afebrile. He has been slow to progress. He did receive convalescent plasma. Completed his course of Remdesivir. He remains on bronchodilators, IV Solu-Medrol, Lovenox and the Pepcid vitamin supplements. Objective - Vital Signs Vital signs: Vital Signs Temp 97.9 F 10/06/20 14:00 Pulse 62 10/06/20 14:00 Resp 22 10/06/20 14:00 BP 91/53 10/06/20 14:00 Pulse Ox 91 L 10/06/20 14:00 Intake & Output 10/05/20 10/06/20 10/06/20 18:59 06:59 18:59 Intake Total 500 Output Total 600 400 Balance 500 -600 -400 Intake: Oral 500 Output: Urine 600 400 Other: Voiding Method Urinal Urinal Urinal # Voids 1 1 # Emeses 2 - Exam GENERAL EXAM: Alert, pleasant, 65-year-old male patient, and 15 L high flow nasal cannula, in mild respiratory distress. HEENT: PERRLA, EOMI, no icterus. CHEST: No chest wall deformity. Symmetrical expansion. LUNGS: Equal air entry with bilateral scattered rhonchi, diffuse crackles CVS: Regular rate and rhythm, normal S1 and S2, no gallops, no murmurs, no rubs ABDOMEN: Soft, nontender. No hepatosplenomegaly, normal bowel sounds, no guarding or rigidity. EXTREMITIES: clubbing noted in bilateral fingernails, no edema, no cyanosis, 2+ pulses and upper and lower extremities. MUSCULOSKELETAL: Muscle strength and tone normal. SPINE: No scoliosis or deformity SKIN: No rashes CENTRAL NERVOUS SYSTEM: No focal deficits, tone is normal in all 4 extremities. PSYCHIATRIC: Alert and oriented -3. Appropriate affect. Intact judgment and insight. - Labs CBC & Chem 7: 10/05/20 11:01 10/05/20 11:01 Labs: Abnormal Lab Results - Last 24 Hours (Table) 10/05/20 10/05/20 10/05/20 Range/Units 11:01 17:03 20:18 BUN 41.0 H (9.0-27.0) mg/dL BUN/Creatinine Ratio 37.27 H (12.00-20.00) Ratio Glucose 116 H (70-110) mg/dL POC Glucose (mg/dL) 151 H 130 H (75-99) mg/dL Ferritin 1187.6 H (22.0-322.0) ng/mL Lactate Dehydrogenase 377 H (120-246) U/L Total Protein 5.6 L (6.2-8.2) g/dL Albumin 3.70 L (3.80-4.90) g/dL 10/06/20 10/06/20 Range/Units 06:50 11:29 BUN (9.0-27.0) mg/dL BUN/Creatinine Ratio (12.00-20.00) Ratio Glucose (70-110) mg/dL POC Glucose (mg/dL) 70 L 126 H (75-99) mg/dL Ferritin (22.0-322.0) ng/mL Lactate Dehydrogenase (120-246) U/L Total Protein (6.2-8.2) g/dL Albumin (3.80-4.90) g/dL Assessment and Plan Assessment: 1 Acute on chronic hypoxic respiratory failure related to acute COVID 19 pneumonitis. Received convalescent plasma, complete Remdesivir 2 Chronic hypoxic respiratory failure related to history of COPD and underlying interstitial lung disease, normally wears 4 L of oxygen on as-needed basis 3 Former smoker 4 History of hypothyroidism 5 Elevated inflammatory markers related to acute COVID 19 infection 6 Elevated d-dimer of 0.99 on admission, with no evidence of pulmonary embolism on CT chest Plan: The patient was seen and evaluated by Dr. Watts Continue Lovenox, steroids Continue vitamin supplements, Pepcid, melatonin Titrate down the FiO2 as tolerated Repeat chest x-ray, d-dimer in a.m. We will continue to follow and make further recommendations based on his clinical status I, the cosigning physician, performed a history & physical examination of the patient. Lungs sounds bilateral scattered rhonchi, crackles in the bases, diminished. Maintaining good O2 saturations in the 90s on 15 L high flow nasal cannula. I discussed the assessment and plan of care with my nurse Carolina abreu. I attest to the above note as dictated by her.
[2020-10-06 17:03] LABS: Glucose,Whole Blood 96 mg/dL (75-99)
[2020-10-06] MEDS: MELATONIN 5 MG TABLET PO SCH (19:39)
[2020-10-06] MEDS: MONTELUKAST 10 MG TAB PO SCH (19:39)
[2020-10-06] MEDS: ATORVASTATIN 20 MG TAB PO SCH (19:39)
[2020-10-06 20:06] LABS: Glucose,Whole Blood 90 mg/dL (75-99)
[2020-10-07] MEDS: ALBUTEROL HFA INHALER INHALATION SCH ×6 (02:23→21:01)
[2020-10-07] MEDS: LEVOTHYROXINE 75 MCG TAB PO SCH (05:17)
[2020-10-07 06:42] LABS: Basophils % (A) 0 %; Eosinophils # (A) 0.1 k/uL (0-0.7); Eosinophils % (A) 0 %; HCT 46.1 % (39.0-53.0); Lymphocytes % (A) 5 %; MCH 28.5 pg (25.0-35.0); MCHC 32.5 g/dL (31.0-37.0); MCV 87.8 fL (80.0-100.0); Monocytes # (A) 0.9 k/uL (0-1.0); Monocytes % (A) 4 %; Neutrophils # (A) 19.2 k/uL (1.3-7.7); Neutrophils % (A) 90 %; Platelet Count 317 k/uL (150-450); RBC 5.25 m/uL (4.30-5.90); RDW 12.6 % (11.5-15.5); WBC 21.2 k/uL (3.8-10.6)
[2020-10-07 07:01] LABS: Glucose,Whole Blood 73 mg/dL (75-99)
--- NOTE | 2020-10-07 07:27 | XR ---
EXAMINATION TYPE: XR chest 1V portable DATE OF EXAM: 10/07/2020 CLINICAL HISTORY: Difficulty breathing and covid pneumonia progress study. TECHNIQUE: Single AP portable upright view of the chest is obtained. COMPARISON: Chest x-ray from 5 days earlier and older studies. FINDINGS: Background chronic emphysematous and pulmonary fibrotic changes and elevated left hemidiap hragm with persistent peripheral increased opacities bilaterally in the mid to lower lungs. No pleura l effusion or pneumothorax seen bilaterally. Cardiac silhouette size stable and upper limits of yuko l. Atherosclerotic change thoracic aorta redemonstrated. Osseous structures are intact.. IMPRESSION: Chronic emphysematous and pulmonary fibrotic changes with persistent bilateral peripheral mid and bibasilar acute infiltrates. Findings consistent with covid 19 infection. No significant int erval change from most recent x-ray.
[2020-10-07] MEDS: methylPREDNISolone SOD SUCCI 40 MG/ML 1 ML VIAL IV SCH (09:04)
[2020-10-07] MEDS: FAMOTIDINE 20 MG TAB PO SCH ×2 (09:04→22:59)
[2020-10-07] MEDS: lisinopriL 20 MG TAB PO SCH (09:04)
[2020-10-07] MEDS: ENOXAPARIN 40 MG/0.4 ML SYRINGE SQ SCH (09:04)
[2020-10-07] MEDS: ASCORBIC ACID 500 MG TAB PO SCH (09:04)
[2020-10-07] MEDS: ZINC SULFATE 220 MG CAP PO SCH (09:04)
[2020-10-07] MEDS: CHOLECALCIFEROL 400 UNIT TAB PO SCH (09:04)
[2020-10-07] MEDS: SYMBICORT 160-4.5 MCG INHALER INHALATION SCH ×2 (09:07→21:01)
[2020-10-07 09:16] LABS: African American GFR (CKD) 91.1 (60.0-200.0); Albumin 3.5 g/dL (3.80-4.90); Albumin/Globulin Ratio 2.06 (1.60-3.17); Anion Gap 6.4 mmol/L (4.00-12.00); Calcium 8.3 mg/dL (8.7-10.3); Carbon Dioxide 23.6 mmol/L (21.6-31.8); Globulin 1.7 g/dL (1.6-3.3); Magnesium 2.1 mg/dL (1.5-2.4); Non-African American GFR(CKD) 78.6 (60.0-200.0); Total Bilirubin 1.5 mg/dL (0.3-1.2); Total Protein 5.2 g/dL (6.2-8.2)
[2020-10-07] MEDS ORDERED: SODIUM POLYSTYRENE SULFONATE 15 GM/60 ML BOTTLE PO STA (09:45)
--- NOTE | 2020-10-07 09:51 | P.PN ---
Subjective Progress Note Date: 10/07/20 Patient is feeling better today. He reports being hungry. He had 2 large bowel movement since yesterday. Patient was on 15 L high flow nasal cannula throughout the the night Objective - Vital Signs Vital signs: Vital Signs Temp 98.1 F 10/07/20 05:22 Pulse 65 10/07/20 09:06 Resp 18 10/07/20 09:06 BP 97/55 10/07/20 05:22 Pulse Ox 91 L 10/07/20 05:22 Intake & Output 10/06/20 10/07/20 10/07/20 18:59 06:59 18:59 Intake Total 675 600 Output Total 400 850 Balance 275 -250 Intake: Intake, IV Titration 475 600 Amount Sodium Chloride 0.9% 1, 400 600 000 ml @ 50 mls/hr IV . Q20H [facility] Rx#:[id number] Sodium Chloride 0.9% 1, 75 000 ml @ 75 mls/hr IV . [id number] [facility] Rx#:[id number] Oral 200 Output: Urine 400 850 Other: Voiding Method Urinal Urinal # Voids 1 - Exam General: The patient is awake and alert, in no distress Eye: there is normal conjunctiva bilaterally. Neck: The neck is supple, there is no JVD. Cardiovascular: Normal S1-S2, no S3-S4, no murmurs. Respiratory: Lungs clear to auscultation bilaterally Gastrointestinal: Abdomen is soft, nontender Musculoskeletal: There is no pedal edema. Neurological:. Speech is normal. Skin: Skin is warm and dry - Labs CBC & Chem 7: 10/07/20 06:12 10/07/20 06:12 Labs: Abnormal Lab Results - Last 24 Hours (Table) 10/06/20 10/07/20 10/07/20 Range/Units 11:29 06:12 06:12 WBC 21.2 H (3.8-10.6) k/uL Neutrophils # 19.2 H (1.3-7.7) k/uL Sodium 134 L (135-145) mmol/L Potassium 6.0 H (3.5-5.5) mmol/L BUN 33.0 H (9.0-27.0) mg/dL BUN/Creatinine Ratio 33.00 H (12.00-20.00) Ratio Glucose 68 L (70-110) mg/dL POC Glucose (mg/dL) 126 H (75-99) mg/dL Calcium 8.3 L (8.7-10.3) mg/dL Total Bilirubin 1.5 H (0.3-1.2) mg/dL Total Protein 5.2 L (6.2-8.2) g/dL Albumin 3.50 L (3.80-4.90) g/dL 10/07/20 Range/Units 07:00 WBC (3.8-10.6) k/uL Neutrophils # (1.3-7.7) k/uL Sodium (135-145) mmol/L Potassium (3.5-5.5) mmol/L BUN (9.0-27.0) mg/dL BUN/Creatinine Ratio (12.00-20.00) Ratio Glucose (70-110) mg/dL POC Glucose (mg/dL) 73 L (75-99) mg/dL Calcium (8.7-10.3) mg/dL Total Bilirubin (0.3-1.2) mg/dL Total Protein (6.2-8.2) g/dL Albumin (3.80-4.90) g/dL Assessment and Plan Assessment: Acute COVID Pneumonitis with acute on chronic hypoxic respiratory failure (history of COPD) on 4 L of oxygen at home -Pulmonary recommendations appreciated -Continue with Solu-Medrol 40 mg IV daily, prophylactic Lovenox, vitamin C, vitamin D, melatonin, zinc -Finished Remdesivir course -We'll start taper course prednisone tomorrow -Supplemental oxygen currently on 15 L high flow nasal cannula -Inflammatory markers improving -CT angiography negative for PE -Pro-calcitonin was normal. -Repeat inflammatory markers stable Early ileus -Improved clinically. We'll start diet today. Hyperkalemia -May be attributed to lisinopril. Will be discontinued today. -1 dose of Kayexalate today Chronic conditions: Hypertension, hyperlipidemia, hypothyroidism -Continue to monitor blood pressure off of lisinopril -Continue home Synthroid dose DVT prophylaxis -Lovenox The main problem right now for the patient is high oxygen requirement. We will continue to monitor clinical status closely and wean as tolerated. Discussed with: Patient Anticipated discharge date: unknown Anticipated discharge place: Home A total of 35 minutes was spent on the care of this complex patient more than 50% of the time was spent in counseling and care coordination.
--- NOTE | 2020-10-07 10:55 | P.PN ---
Subjective Progress Note Date: 10/07/20 On today's evaluation of 10/07/2020 and seeing the patient for a follow-up. The patient has chronic IPF and the patient has been maintained on oxygen 4 L per minute nasal cannula. Currently is on 15 L and acute on top of chronic hypoxic respiratory failure was related to COVID 19 infection. He is repeat chest x-ray showed some bilateral interstitial pulmonary infiltrates with smaller lung volumes. He is having some nausea. His pulse ox is currently at 91% 15 L. The white cell count is elevated and this probably steroid effect as the patient is currently on IV Solu-Medrol. He has completed treatment for COVID 19. His potassium level is at 6.0 and this was repeated. Most recent ferritin is 1187 and the LDH is 377. No major swelling in lower extremities. Altered mentation. Objective - Vital Signs Vital signs: Vital Signs Temp 97.8 F 10/07/20 10:00 Pulse 84 10/07/20 10:00 Resp 21 10/07/20 10:00 BP 111/66 10/07/20 10:00 Pulse Ox 89 L 10/07/20 10:00 Intake & Output 10/06/20 10/07/20 10/07/20 18:59 06:59 18:59 Intake Total 675 600 Output Total 400 850 Balance 275 -250 Intake: Intake, IV Titration 475 600 Amount Sodium Chloride 0.9% 1, 400 600 000 ml @ 50 mls/hr IV . Q20H [facility] Rx#:[id number] Sodium Chloride 0.9% 1, 75 000 ml @ 75 mls/hr IV . [id number] [facility] Rx#:[id number] Oral 200 Output: Urine 400 850 Other: Voiding Method Urinal Urinal # Voids 1 - Exam GENERAL EXAM: Alert, pleasant, 65-year-old male patient, and 15 L high flow nasal cannula, in mild respiratory distress. HEENT: PERRLA, EOMI, no icterus. CHEST: No chest wall deformity. Symmetrical expansion. LUNGS: Equal air entry with bilateral scattered rhonchi, diffuse crackles CVS: Regular rate and rhythm, normal S1 and S2, no gallops, no murmurs, no rubs ABDOMEN: Soft, nontender. No hepatosplenomegaly, normal bowel sounds, no guarding or rigidity. EXTREMITIES: clubbing noted in bilateral fingernails, no edema, no cyanosis, 2+ pulses and upper and lower extremities. MUSCULOSKELETAL: Muscle strength and tone normal. SPINE: No scoliosis or deformity SKIN: No rashes CENTRAL NERVOUS SYSTEM: No focal deficits, tone is normal in all 4 extremities. PSYCHIATRIC: Alert and oriented -3. Appropriate affect. Intact judgment and insight. - Labs CBC & Chem 7: 10/07/20 06:12 10/07/20 06:12 Labs: Abnormal Lab Results - Last 24 Hours (Table) 10/06/20 10/07/20 10/07/20 Range/Units 11:29 06:12 06:12 WBC 21.2 H (3.8-10.6) k/uL Neutrophils # 19.2 H (1.3-7.7) k/uL Sodium 134 L (135-145) mmol/L Potassium 6.0 H (3.5-5.5) mmol/L BUN 33.0 H (9.0-27.0) mg/dL BUN/Creatinine Ratio 33.00 H (12.00-20.00) Ratio Glucose 68 L (70-110) mg/dL POC Glucose (mg/dL) 126 H (75-99) mg/dL Calcium 8.3 L (8.7-10.3) mg/dL Total Bilirubin 1.5 H (0.3-1.2) mg/dL Total Protein 5.2 L (6.2-8.2) g/dL Albumin 3.50 L (3.80-4.90) g/dL 10/07/20 Range/Units 07:00 WBC (3.8-10.6) k/uL Neutrophils # (1.3-7.7) k/uL Sodium (135-145) mmol/L Potassium (3.5-5.5) mmol/L BUN (9.0-27.0) mg/dL BUN/Creatinine Ratio (12.00-20.00) Ratio Glucose (70-110) mg/dL POC Glucose (mg/dL) 73 L (75-99) mg/dL Calcium (8.7-10.3) mg/dL Total Bilirubin (0.3-1.2) mg/dL Total Protein (6.2-8.2) g/dL Albumin (3.80-4.90) g/dL Assessment and Plan Plan: 1 Acute on chronic hypoxic respiratory failure related to acute COVID 19 pneumonitis. Received convalescent plasma, completed Remdesivir, currently on IV Solu-Medrol. The patient's condition is essentially unchanged. Chest x-ray still showing pulmonary fibrosis with interstitial infiltrates bilaterally. He is on 15 L of oxygen and his pulse ox is ranging between 85-90%. No major improvement on today's evaluation. 2 Chronic hypoxic respiratory failure related to history of COPD and underlying interstitial lung disease, normally wears 4 L of oxygen on as-needed basis 3 Former smoker 4 History of hypothyroidism 5 Elevated inflammatory markers related to acute COVID 19 infection 6 Elevated d-dimer of 0.99 on admission, with no evidence of pulmonary embolism on CT chest Plan: Continue Lovenox, steroidsin the form of IV Solu-Medrol. Chest x-ray findings are stable. Oxygenation is stable and the patient is still requiring high flow oxygen unable to titrate FiO2 down. Continue vitamin supplements, Pepcid, melatonin Titrate down the FiO2 as tolerated Repeat chest x-ray, d-dimer in a.m.was reviewed and the chest x-ray findings are unchanged. We will continue to follow and make further recommendations based on his clinical status
[2020-10-07 11:35] LABS: Glucose,Whole Blood 132 mg/dL (75-99)
[2020-10-07 16:20] LABS: Glucose,Whole Blood 110 mg/dL (75-99)
[2020-10-07] MEDS: SODIUM CHLORIDE 0.9% 1,000 ML IV SCH (19:34)
[2020-10-07 20:14] LABS: Glucose,Whole Blood 120 mg/dL (75-99)
[2020-10-07] MEDS: MELATONIN 5 MG TABLET PO SCH (22:59)
[2020-10-07] MEDS: MONTELUKAST 10 MG TAB PO SCH (22:59)
[2020-10-07] MEDS: ATORVASTATIN 20 MG TAB PO SCH (22:59)
[2020-10-07] MEDS: CALCIUM CARBONATE 500 MG CHEWABLE PO PRN (22:59)
[2020-10-08] MEDS: ALBUTEROL HFA INHALER INHALATION SCH ×5 (01:37→20:36)
[2020-10-08] MEDS ORDERED: SODIUM POLYSTYRENE SULFONATE 15 GM/60 ML BOTTLE PO ONE (05:05)
[2020-10-08] MEDS ORDERED: CALCIUM GLUCONATE 1 GM in SODIUM CHLORIDE 0.9% 100 ML IVPB ONE (05:15)
[2020-10-08] MEDS: CALCIUM CARBONATE 500 MG CHEWABLE PO PRN ×2 (05:38→20:11)
[2020-10-08] MEDS: LEVOTHYROXINE 75 MCG TAB PO SCH (05:42)
[2020-10-08 07:05] LABS: Basophils % (A) 0 %; Eosinophils # (A) 0.2 k/uL (0-0.7); Eosinophils % (A) 1 %; HCT 45.9 % (39.0-53.0); Lymphocytes % (A) 6 %; MCH 28.7 pg (25.0-35.0); MCHC 32.6 g/dL (31.0-37.0); Mean Platelet Volume 8.2; Monocytes % (A) 6 %; Neutrophils # (A) 16.5 k/uL (1.3-7.7); Neutrophils % (A) 87 %; Platelet Count 348 k/uL (150-450); RBC 5.22 m/uL (4.30-5.90); RDW 12.6 % (11.5-15.5); WBC 18.9 k/uL (3.8-10.6)
[2020-10-08 07:12] LABS: Glucose,Whole Blood 84 mg/dL (75-99)
[2020-10-08] MEDS: methylPREDNISolone SOD SUCCI 40 MG/ML 1 ML VIAL IV SCH (08:28)
[2020-10-08] MEDS: FAMOTIDINE 20 MG TAB PO SCH ×2 (08:28→20:11)
[2020-10-08] MEDS: polyethylene glycoL 3350 17 GM POWD.PACK PO SCH (08:28)
[2020-10-08] MEDS: ENOXAPARIN 40 MG/0.4 ML SYRINGE SQ SCH (08:28)
[2020-10-08] MEDS: CHOLECALCIFEROL 400 UNIT TAB PO SCH (08:28)
[2020-10-08] MEDS: ZINC SULFATE 220 MG CAP PO SCH (08:28)
[2020-10-08] MEDS: ASCORBIC ACID 500 MG TAB PO SCH (08:28)
[2020-10-08 09:34] LABS: African American GFR (CKD) 73.1 (60.0-200.0); Anion Gap 5.7 mmol/L (4.00-12.00); BUN/Creat Ratio 29.17 Ratio (12.00-20.00); Calcium 8.5 mg/dL (8.7-10.3); Carbon Dioxide 25.3 mmol/L (21.6-31.8); Non-African American GFR(CKD) 63.1 (60.0-200.0); Potassium 5.3 mmol/L (3.5-5.5)
[2020-10-08] MEDS: SYMBICORT 160-4.5 MCG INHALER INHALATION SCH ×2 (09:35→20:37)
--- NOTE | 2020-10-08 11:07 | P.PN ---
Subjective Progress Note Date: 10/08/20 Patient is doing well today. His shortness of breath is improved significantly. He is currently on 15 L high flow nasal cannula. Objective - Vital Signs Vital signs: Vital Signs Temp 98.0 F 10/08/20 10:00 Pulse 78 10/08/20 10:00 Resp 16 10/08/20 10:00 BP 103/65 10/08/20 10:00 Pulse Ox 96 10/08/20 10:00 Intake & Output 10/07/20 10/08/20 10/08/20 18:59 06:59 18:59 Intake Total 100 Output Total 250 Balance -150 Intake: Oral 100 Output: Urine 250 Other: Voiding Method Urinal Urinal Urinal # Voids 3 1 - Exam General: The patient is awake and alert, in no distress Eye: there is normal conjunctiva bilaterally. Neck: The neck is supple, there is no JVD. Cardiovascular: Normal S1-S2, no S3-S4, no murmurs. Respiratory: Lungs clear to auscultation bilaterally Gastrointestinal: Abdomen is soft, nontender Musculoskeletal: There is no pedal edema. Neurological:. Speech is normal. Skin: Skin is warm and dry - Labs CBC & Chem 7: 10/08/20 06:15 10/08/20 06:15 Labs: Abnormal Lab Results - Last 24 Hours (Table) 10/07/20 10/07/20 10/07/20 Range/Units 11:34 16:18 18:40 WBC (3.8-10.6) k/uL Neutrophils # (1.3-7.7) k/uL Sodium (135-145) mmol/L Potassium 6.2 H* (3.5-5.5) mmol/L BUN (9.0-27.0) mg/dL BUN/Creatinine Ratio (12.00-20.00) Ratio POC Glucose (mg/dL) 132 H 110 H (75-99) mg/dL Calcium (8.7-10.3) mg/dL 10/07/20 10/08/20 10/08/20 Range/Units 20:09 06:15 06:15 WBC 18.9 H (3.8-10.6) k/uL Neutrophils # 16.5 H (1.3-7.7) k/uL Sodium 134 L (135-145) mmol/L Potassium (3.5-5.5) mmol/L BUN 35.0 H (9.0-27.0) mg/dL BUN/Creatinine Ratio 29.17 H (12.00-20.00) Ratio POC Glucose (mg/dL) 120 H (75-99) mg/dL Calcium 8.5 L (8.7-10.3) mg/dL Assessment and Plan Assessment: Acute COVID Pneumonitis with acute on chronic hypoxic respiratory failure (history of COPD) on 4 L of oxygen at home -Pulmonary recommendations appreciated -Continue with Solu-Medrol 40 mg IV daily, prophylactic Lovenox, vitamin C, vitamin D, melatonin, zinc -Finished Remdesivir course -We'll start taper course prednisone today -Supplemental oxygen currently on 15 L high flow nasal cannula -Inflammatory markers improving -CT angiography negative for PE -Pro-calcitonin was normal. -Repeat inflammatory markers stable Early ileus -Improved clinically. Tolerating diet with no difficulty Hyperkalemia -May be attributed to lisinopril. Will be discontinued today. -Given 2 doses of Kayexalate. Potassium level improving. We will continue to monitor. Chronic conditions: Hypertension, hyperlipidemia, hypothyroidism -Continue to monitor blood pressure off of lisinopril -Continue home Synthroid dose DVT prophylaxis -Lovenox The main problem right now for the patient is high oxygen requirement. We will continue to monitor clinical status closely and wean as tolerated. Discussed with: Patient Anticipated discharge date: unknown Anticipated discharge place: Home A total of 35 minutes was spent on the care of this complex patient more than 50% of the time was spent in counseling and care coordination.
--- NOTE | 2020-10-08 11:14 | P.PN ---
Subjective Progress Note Date: 10/08/20 O 10/08/2020, I'm seeing the patient for a follow-up. As mentioned earlier, the patient has IPF and the patient has a superimposed COVID 19 related pneumonia. The patient remains on high flow oxygen at 15 L. No major improvement in his oxygenation. Still requiring 15 L for now.chest x-ray was showing bilateral interstitial pulmonary infiltrates and smaller lung volumes. The patient is resting comfortably in bed.no inflammatory markers today. Clinically however, the patient feels that he is improving Objective - Vital Signs Vital signs: Vital Signs Temp 98.0 F 10/08/20 10:00 Pulse 78 10/08/20 10:00 Resp 16 10/08/20 10:00 BP 103/65 10/08/20 10:00 Pulse Ox 96 10/08/20 10:00 Intake & Output 10/07/20 10/08/20 10/08/20 18:59 06:59 18:59 Intake Total 100 Output Total 250 Balance -150 Intake: Oral 100 Output: Urine 250 Other: Voiding Method Urinal Urinal Urinal # Voids 3 1 - Exam GENERAL EXAM: Alert, pleasant, 65-year-old male patient, and 15 L high flow nasal cannula, in mild respiratory distress. HEENT: PERRLA, EOMI, no icterus. CHEST: No chest wall deformity. Symmetrical expansion. LUNGS: Equal air entry with bilateral scattered rhonchi, diffuse crackles CVS: Regular rate and rhythm, normal S1 and S2, no gallops, no murmurs, no rubs ABDOMEN: Soft, nontender. No hepatosplenomegaly, normal bowel sounds, no guarding or rigidity. EXTREMITIES: clubbing noted in bilateral fingernails, no edema, no cyanosis, 2+ pulses and upper and lower extremities. MUSCULOSKELETAL: Muscle strength and tone normal. SPINE: No scoliosis or deformity SKIN: No rashes CENTRAL NERVOUS SYSTEM: No focal deficits, tone is normal in all 4 extremities. PSYCHIATRIC: Alert and oriented -3. Appropriate affect. Intact judgment and insight. - Labs CBC & Chem 7: 10/08/20 06:15 10/08/20 06:15 Labs: Abnormal Lab Results - Last 24 Hours (Table) 10/07/20 10/07/20 10/07/20 Range/Units 11:34 16:18 18:40 WBC (3.8-10.6) k/uL Neutrophils # (1.3-7.7) k/uL Sodium (135-145) mmol/L Potassium 6.2 H* (3.5-5.5) mmol/L BUN (9.0-27.0) mg/dL BUN/Creatinine Ratio (12.00-20.00) Ratio POC Glucose (mg/dL) 132 H 110 H (75-99) mg/dL Calcium (8.7-10.3) mg/dL 10/07/20 10/08/20 10/08/20 Range/Units 20:09 06:15 06:15 WBC 18.9 H (3.8-10.6) k/uL Neutrophils # 16.5 H (1.3-7.7) k/uL Sodium 134 L (135-145) mmol/L Potassium (3.5-5.5) mmol/L BUN 35.0 H (9.0-27.0) mg/dL BUN/Creatinine Ratio 29.17 H (12.00-20.00) Ratio POC Glucose (mg/dL) 120 H (75-99) mg/dL Calcium 8.5 L (8.7-10.3) mg/dL Assessment and Plan Plan: 1 Acute on chronic hypoxic respiratory failure related to acute COVID 19 pneumonitis. Received convalescent plasma, completed Remdesivir, currently on IV Solu-Medrol. The patient's condition is essentially unchanged. Chest x-ray still showing pulmonary fibrosis with interstitial infiltrates bilaterally. He is on 15 L of oxygen and his pulse ox is ranging between 85-90%. No major improvement on today's evaluation.patient was placed oral prednisone today at a dose of 10 mg by mouth daily. I prefer to go with the usual protocol of Decadron 6 mg by mouth daily instead of oral prednisone. 2 Chronic hypoxic respiratory failure related to history of COPD and underlying interstitial lung disease, normally wears 4 L of oxygen on as-needed basis 3 Former smoker 4 History of hypothyroidism 5 Elevated inflammatory markers related to acute COVID 19 infection 6 Elevated d-dimer of 0.99 on admission, with no evidence of pulmonary embolism on CT chest Plan: put the patient on Decadron 6 mg by mouth daily Attempts to wean down the FiO2 Continue vitamin supplements, Pepcid, melatonin Titrate down the FiO2 as tolerated Repeat chest x-ray, d-dimer an inflammatory markers in a.m. Incentive spirometer We will continue to follow and make further recommendations based on his clinical status
[2020-10-08 11:45] LABS: Glucose,Whole Blood 122 mg/dL (75-99)
[2020-10-08] MEDS: dexAMETHasone 2 MG TAB PO SCH (13:39)
[2020-10-08 17:05] LABS: Glucose,Whole Blood 136 mg/dL (75-99)
[2020-10-08] MEDS: MONTELUKAST 10 MG TAB PO SCH (20:10)
[2020-10-08] MEDS: MELATONIN 5 MG TABLET PO SCH (20:11)
[2020-10-08] MEDS: ATORVASTATIN 20 MG TAB PO SCH (20:11)
[2020-10-08 20:50] LABS: Glucose,Whole Blood 149 mg/dL (75-99)
[2020-10-09] MEDS: ALBUTEROL HFA INHALER INHALATION SCH ×5 (00:16→20:52)
[2020-10-09] MEDS: CALCIUM CARBONATE 500 MG CHEWABLE PO PRN ×3 (06:01→20:28)
[2020-10-09] MEDS: LEVOTHYROXINE 75 MCG TAB PO SCH (06:01)
[2020-10-09] MEDS: FAMOTIDINE 20 MG TAB PO SCH ×2 (08:53→20:26)
[2020-10-09] MEDS: CHOLECALCIFEROL 400 UNIT TAB PO SCH (08:54)
[2020-10-09] MEDS: polyethylene glycoL 3350 17 GM POWD.PACK PO SCH (08:54)
[2020-10-09] MEDS: ZINC SULFATE 220 MG CAP PO SCH (08:54)
[2020-10-09] MEDS: dexAMETHasone 2 MG TAB PO SCH (08:54)
[2020-10-09] MEDS: ENOXAPARIN 40 MG/0.4 ML SYRINGE SQ SCH (08:54)
[2020-10-09] MEDS: ASCORBIC ACID 500 MG TAB PO SCH (08:54)
[2020-10-09] MEDS ORDERED: predniSONE 20 MG TAB PO SCH (09:00)
[2020-10-09] MEDS: SYMBICORT 160-4.5 MCG INHALER INHALATION SCH ×2 (09:52→20:53)
--- NOTE | 2020-10-09 10:06 | P.PN ---
Subjective Progress Note Date: 10/09/20 O On 10/09/2020, the patient is sitting up on a chair. He is currently on 15 L of oxygen. Was doing his morning exercises, he also uses 100% nonrebreather facemask. While on 15 L, his pulse ox is around 91-92%. No worsening his condition. No improvement in his condition. He is essentially the same as yesterday. No chest pain. No swelling in lower extremities. No altered mentation. Note that the patient has history of pulmonary fibrosis and he is maintained on oxygen at 4 L on outpatient basis. His lung exam is essentially unchanged and the patient continues to have crackles in the lung bases bilaterally. Objective - Vital Signs Vital signs: Vital Signs Temp 97.8 F 10/09/20 06:00 Pulse 80 10/08/20 22:16 Resp 18 10/09/20 06:00 BP 113/60 10/09/20 06:00 Pulse Ox 92 L 10/09/20 06:00 Intake & Output 10/08/20 10/09/20 10/09/20 18:59 06:59 18:59 Weight 73.4 kg Other: Voiding Method Urinal Urinal # Voids 8 1 - Exam GENERAL EXAM: Alert, pleasant, 65-year-old male patient, and 15 L high flow nasal cannula, in mild respiratory distress. HEENT: PERRLA, EOMI, no icterus. CHEST: No chest wall deformity. Symmetrical expansion. LUNGS: Equal air entry with bilateral scattered rhonchi, diffuse crackles CVS: Regular rate and rhythm, normal S1 and S2, no gallops, no murmurs, no rubs ABDOMEN: Soft, nontender. No hepatosplenomegaly, normal bowel sounds, no guarding or rigidity. EXTREMITIES: clubbing noted in bilateral fingernails, no edema, no cyanosis, 2+ pulses and upper and lower extremities. MUSCULOSKELETAL: Muscle strength and tone normal. SPINE: No scoliosis or deformity SKIN: No rashes CENTRAL NERVOUS SYSTEM: No focal deficits, tone is normal in all 4 extremities. PSYCHIATRIC: Alert and oriented -3. Appropriate affect. Intact judgment and insight. - Labs CBC & Chem 7: 10/08/20 06:15 10/08/20 06:15 Labs: Abnormal Lab Results - Last 24 Hours (Table) 10/08/20 10/08/20 10/08/20 Range/Units 11:43 17:03 20:48 POC Glucose (mg/dL) 122 H 136 H 149 H (75-99) mg/dL Assessment and Plan Plan: 1 Acute on chronic hypoxic respiratory failure related to acute COVID 19 pn eumonitis. Received convalescent plasma, completed Remdesivir, currently on IV Solu-Medrol. The patient's condition is essentially unchanged. Chest x-ray still showing pulmonary fibrosis with interstitial infiltrates bilaterally. He is on 15 L of oxygen and his pulse ox is ranging between 85-90%. Have the patient on Decadron 6 mg by mouth daily. He has been on 15 L of oxygen by nasal cannula. 2 Chronic hypoxic respiratory failure related to history of COPD and underlying interstitial lung disease, normally wears 4 L of oxygen on as-needed basis 3 Former smoker 4 History of hypothyroidism 5 Elevated inflammatory markers related to acute COVID 19 infection 6 Elevated d-dimer of 0.99 on admission, with no evidence of pulmonary embolism on CT chest Plan: Decadron 6 mg by mouth daily Attempts to wean down the FiO2, still on 15 L Continue vitamin supplements, Pepcid, melatonin Titrate down the FiO2 as tolerated Repeat chest x-ray, d-dimer an inflammatory markers in a.m. Incentive spirometer We will continue to follow and make further recommendations based on his clini rebeca status
--- NOTE | 2020-10-09 10:36 | P.PN ---
Subjective Progress Note Date: 10/09/20 Patient was seen and evaluated today. He is frustrated as he is not working with physical therapy. His O2 sat this morning was running around 89% on 15 L high flow nasal cannula. I explained to him that with his hypoxia there is so much that he can do. I advised him to do stationary exercise in bed. Continue incentive spirometer. I discussed with physical therapy getting the patient out of bed and doing stationary exercise in the chair. During exercise, patient up with a nonrebreather on top of 15 L nasal cannula. Objective - Vital Signs Vital signs: Vital Signs Temp 97.8 F 10/09/20 09:22 Pulse 74 10/09/20 09:22 Resp 17 10/09/20 09:22 BP 121/64 10/09/20 09:22 Pulse Ox 89 L 10/09/20 09:22 Intake & Output 10/08/20 10/09/20 10/09/20 18:59 06:59 18:59 Weight 73.4 kg Other: Voiding Method Urinal Urinal # Voids 8 1 - Exam General: The patient is awake and alert, in no distress Eye: there is normal conjunctiva bilaterally. Neck: The neck is supple, there is no JVD. Cardiovascular: Normal S1-S2, no S3-S4, no murmurs. Respiratory: Lungs clear to auscultation bilaterally with scattered bibasilar crackles Gastrointestinal: Abdomen is soft, nontender Musculoskeletal: There is no pedal edema. Neurological:. Speech is normal. Skin: Skin is warm and dry - Labs CBC & Chem 7: 10/08/20 06:15 10/08/20 06:15 Labs: Abnormal Lab Results - Last 24 Hours (Table) 10/08/20 10/08/20 10/08/20 Range/Units 11:43 17:03 20:48 POC Glucose (mg/dL) 122 H 136 H 149 H (75-99) mg/dL Assessment and Plan Assessment: Acute COVID Pneumonitis with acute on chronic hypoxic respiratory failure (history of COPD) on 4 L of oxygen at home -Pulmonary recommendations appreciated -Started on IV Solu-Medrol since admission and now transitioned to oral Decadron, prophylactic Lovenox, vitamin C, vitamin D, melatonin, zinc -Finished Remdesivir course -Supplemental oxygen currently on 15 L high flow nasal cannula -Inflammatory markers improving -CT angiography negative for PE -Pro-calcitonin was normal. -Repeat inflammatory markers stable Early ileus -Resolved. Tolerating diet with no difficulty. Continue MiraLAX daily Hyperkalemia -May be attributed to lisinopril. discontinued -Given 2 doses of Kayexalate. Potassium level improving. We will continue to monitor. History of Hypertension -Blood pressure within acceptable range off of blood pressure medications. Lisinopril was discontinued due to hyperkalemia. We will continue to monitor closely. Chronic conditions: Hypertension, hyperlipidemia, hypothyroidism -Continue to monitor blood pressure off of lisinopril -Continue home Synthroid dose DVT prophylaxis -Lovenox The main problem right now for the patient is high oxygen requirement. We will continue to monitor clinical status closely and wean as tolerated. Discussed with: Patient Anticipated discharge date: unknown Anticipated discharge place: Home A total of 35 minutes was spent on the care of this complex patient more than 50% of the time was spent in counseling and care coordination.
[2020-10-09 11:46] LABS: African American GFR (CKD) 91.1 (60.0-200.0); Anion Gap 7.4 mmol/L (4.00-12.00); Calcium 8.6 mg/dL (8.7-10.3); Carbon Dioxide 23.6 mmol/L (21.6-31.8); Non-African American GFR(CKD) 78.6 (60.0-200.0); Potassium 5.3 mmol/L (3.5-5.5)
[2020-10-09] MEDS: ATORVASTATIN 20 MG TAB PO SCH (20:26)
[2020-10-09] MEDS: MELATONIN 5 MG TABLET PO SCH (20:26)
[2020-10-09] MEDS: MONTELUKAST 10 MG TAB PO SCH (20:26)
[2020-10-09 20:37] LABS: Glucose,Whole Blood 148 mg/dL (75-99)
[2020-10-10] MEDS: ALBUTEROL HFA INHALER INHALATION SCH ×6 (00:44→20:18)
[2020-10-10] MEDS: LEVOTHYROXINE 75 MCG TAB PO SCH (05:32)
[2020-10-10] MEDS: SYMBICORT 160-4.5 MCG INHALER INHALATION SCH ×2 (08:17→20:18)
[2020-10-10] MEDS: ASCORBIC ACID 500 MG TAB PO SCH (08:25)
[2020-10-10] MEDS: ZINC SULFATE 220 MG CAP PO SCH (08:25)
[2020-10-10] MEDS: dexAMETHasone 2 MG TAB PO SCH (08:25)
[2020-10-10] MEDS: FAMOTIDINE 20 MG TAB PO SCH ×2 (08:25→20:21)
[2020-10-10] MEDS: CHOLECALCIFEROL 400 UNIT TAB PO SCH (08:25)
[2020-10-10] MEDS: polyethylene glycoL 3350 17 GM POWD.PACK PO SCH (08:25)
[2020-10-10] MEDS: ENOXAPARIN 40 MG/0.4 ML SYRINGE SQ SCH (08:26)
[2020-10-10 10:03] LABS: African American GFR (CKD) 91.1 (60.0-200.0); Calcium 8.9 mg/dL (8.7-10.3); Carbon Dioxide 23.9 mmol/L (21.6-31.8); Chloride 100 mmol/L (96-109); Glucose 68 mg/dL (70-110); LDH 345 U/L (120-246); Non-African American GFR(CKD) 78.6 (60.0-200.0); Potassium 5.2 mmol/L (3.5-5.5); Sodium 131 mmol/L (135-145)
[2020-10-10 10:21] LABS: C Reactive Protein <0.4 mg/dL (0.0-0.8)
--- NOTE | 2020-10-10 11:11 | P.PN ---
Subjective Progress Note Date: 10/10/20 O 10/10/2020, the patient is sitting up on the recliner. He is currently on 10 L of oxygen by nasal cannula. LDH is down to 345, CRP is down to normal. He is using incentive spirometer. He is pulling approximately thousand. No new complaints for now. Is on oral Decadron. He is on home oxygen. His underlying pulmonary fibrosis. Typically maintained on 4 L of oxygen by nasal cannula. No nausea. No vomiting. No diarrhea. No abdominal pain. No other complaints. Objective - Vital Signs Vital signs: Vital Signs Temp 98.8 F 10/10/20 09:15 Pulse 91 10/10/20 09:15 Resp 17 10/10/20 09:15 BP 116/70 10/10/20 09:15 Pulse Ox 90 L 10/10/20 09:15 Intake & Output 10/09/20 10/10/20 10/10/20 18:59 06:59 18:59 Intake Total 100 Output Total 200 Balance -100 Intake: Oral 100 Output: Urine 200 Other: Voiding Method Urinal # Voids 3 1 # Bowel Movements 1 # Emeses 1 - Exam GENERAL EXAM: Alert, pleasant, 65-year-old male patient, and 10 L high flow nasal cannula, in mild respiratory distress. HEENT: PERRLA, EOMI, no icterus. CHEST: No chest wall deformity. Symmetrical expansion. LUNGS: Equal air entry with bilateral scattered rhonchi, diffuse crackles CVS: Regular rate and rhythm, normal S1 and S2, no gallops, no murmurs, no rubs ABDOMEN: Soft, nontender. No hepatosplenomegaly, normal bowel sounds, no guarding or rigidity. EXTREMITIES: clubbing noted in bilateral fingernails, no edema, no cyanosis, 2+ pulses and upper and lower extremities. MUSCULOSKELETAL: Muscle strength and tone normal. SPINE: No scoliosis or deformity SKIN: No rashes CENTRAL NERVOUS SYSTEM: No focal deficits, tone is normal in all 4 extremities. PSYCHIATRIC: Alert and oriented -3. Appropriate affect. Intact judgment and insight. - Labs CBC & Chem 7: 10/08/20 06:15 10/10/20 06:13 Labs: Abnormal Lab Results - Last 24 Hours (Table) 10/09/20 10/09/20 10/10/20 Range/Units 06:36 20:35 06:13 D-Dimer (<0.60) mg/L FEU Sodium 134 L 131 L (135-145) mmol/L BUN 29.0 H 30.0 H (9.0-27.0) mg/dL BUN/Creatinine Ratio 29.00 H 30.00 H (12.00-20.00) Ratio Glucose 68 L (70-110) mg/dL POC Glucose (mg/dL) 148 H (75-99) mg/dL Calcium 8.6 L (8.7-10.3) mg/dL Lactate Dehydrogenase 345 H (120-246) U/L 10/10/20 Range/Units 06:13 D-Dimer 0.84 H (<0.60) mg/L FEU Sodium (135-145) mmol/L BUN (9.0-27.0) mg/dL BUN/Creatinine Ratio (12.00-20.00) Ratio Glucose (70-110) mg/dL POC Glucose (mg/dL) (75-99) mg/dL Calcium (8.7-10.3) mg/dL Lactate Dehydrogenase (120-246) U/L Assessment and Plan Plan: 1 Acute on chronic hypoxic respiratory failure related to acute COVID 19 pneumonitis. Received convalescent plasma, completed Remdesivir, and oral Decadron.. The patient's condition is essentially unchanged. Chest x-ray still showing pulmonary fibrosis with interstitial infiltrates bilaterally. He is on 15 L of oxygen and his pulse ox is ranging between 85-90%. Have the patient on Decadron 6 mg by mouth daily. He has been on 10L of oxygen by nasal cannula. 2 Chronic hypoxic respiratory failure related to history of COPD and underlying interstitial lung disease, normally wears 4 L of oxygen on as-needed basis 3 Former smoker 4 History of hypothyroidism 5 Elevated inflammatory markers related to acute COVID 19 infection 6 Elevated d-dimer of 0.99 on admission, with no evidence of pulmonary embolism on CT chest Plan: Decadron 6 mg by mouth daily Attempts to wean down the FiO2 further Continue vitamin supplements, Pepcid, melatonin Titrate down the FiO2 as tolerated Repeat chest x-ray, d-dimer an inflammatory markers in a.m., the LDH is mildly elevated, CRP is normal. Incentive spirometer We will continue to follow and make further recommendations based on his clinical status
--- NOTE | 2020-10-10 18:08 | P.PN ---
Subjective Progress Note Date: 10/10/20 Objective - Vital Signs Vital signs: Vital Signs Temp 98.6 F 10/10/20 14:59 Pulse 73 10/10/20 14:59 Resp 17 10/10/20 14:59 BP 100/60 10/10/20 14:59 Pulse Ox 94 L 10/10/20 14:59 Intake & Output 10/09/20 10/10/20 10/10/20 18:59 06:59 18:59 Intake Total 100 Output Total 200 Balance -100 Intake: Oral 100 Output: Urine 200 Other: Voiding Method Urinal # Voids 3 1 3 # Bowel Movements 1 # Emeses 1 - Constitutional Constitutional Comment(s): Up in chair General appearance: Present: no acute distress - Respiratory Details: Scattered rhonchi Respiratory: bilateral: diminished - Cardiovascular Rhythm: regular - Gastrointestinal General gastrointestinal: Present: normal bowel sounds - Integumentary Integumentary: Present: normal - Psychiatric Psychiatric: Present: appropriate affect - Labs CBC & Chem 7: 10/08/20 06:15 10/10/20 06:13 Labs: Abnormal Lab Results - Last 24 Hours (Table) 10/09/20 10/10/20 10/10/20 Range/Units 20:35 06:13 06:13 D-Dimer 0.84 H (<0.60) mg/L FEU Sodium 131 L (135-145) mmol/L BUN 30.0 H (9.0-27.0) mg/dL BUN/Creatinine Ratio 30.00 H (12.00-20.00) Ratio Glucose 68 L (70-110) mg/dL POC Glucose (mg/dL) 148 H (75-99) mg/dL Lactate Dehydrogenase 345 H (120-246) U/L Assessment and Plan Plan: Acute Covid pneumonitis with acute on chronic hypoxic respiratory failure patient has chronic respiratory failure is on 4 L of oxygen at home, Appreciate pulmonary input, he is currently on oral Decadron after receiving IV Solu-Medrol, continue Lovenox, vitamin C, vitamin D, melatonin and zinc, he's completed a course of REM to severe his oxygen has improved yesterday he was on 15 L currently on 10 L continue to monitor
[2020-10-10] MEDS: ATORVASTATIN 20 MG TAB PO SCH (20:21)
[2020-10-10] MEDS: MONTELUKAST 10 MG TAB PO SCH (20:21)
[2020-10-10] MEDS: MELATONIN 5 MG TABLET PO SCH (20:21)
[2020-10-10] MEDS: CALCIUM CARBONATE 500 MG CHEWABLE PO PRN (20:21)
[2020-10-11] MEDS: ALBUTEROL HFA INHALER INHALATION SCH ×7 (00:59→20:05)
[2020-10-11] MEDS: LEVOTHYROXINE 75 MCG TAB PO SCH (05:58)
[2020-10-11 06:51] LABS: Glucose,Whole Blood 73 mg/dL (75-99)
[2020-10-11] MEDS: SYMBICORT 160-4.5 MCG INHALER INHALATION SCH ×2 (07:56→20:05)
[2020-10-11 08:18] LABS: Basophils # (A) 0.1 k/uL (0-0.2); Basophils % (A) 0 %; Eosinophils # (A) 0.2 k/uL (0-0.7); Eosinophils % (A) 1 %; HCT 47.6 % (39.0-53.0); HGB 15.7 gm/dL (13.0-17.5); Lymphocytes # (A) 1.2 k/uL (1.0-4.8); Lymphocytes % (A) 7 %; MCH 28.9 pg (25.0-35.0); MCHC 32.9 g/dL (31.0-37.0); MCV 87.8 fL (80.0-100.0); Mean Platelet Volume 8.4; Monocytes # (A) 0.9 k/uL (0-1.0); Monocytes % (A) 5 %; Neutrophils # (A) 14.4 k/uL (1.3-7.7); Neutrophils % (A) 86 %; Platelet Count 322 k/uL (150-450); RBC 5.41 m/uL (4.30-5.90); RDW 12.6 % (11.5-15.5); WBC 16.8 k/uL (3.8-10.6)
[2020-10-11] MEDS: ENOXAPARIN 40 MG/0.4 ML SYRINGE SQ SCH (09:45)
[2020-10-11] MEDS: polyethylene glycoL 3350 17 GM POWD.PACK PO SCH (09:45)
[2020-10-11] MEDS: dexAMETHasone 2 MG TAB PO SCH (09:46)
[2020-10-11] MEDS: ZINC SULFATE 220 MG CAP PO SCH (09:46)
[2020-10-11] MEDS: ASCORBIC ACID 500 MG TAB PO SCH (09:46)
[2020-10-11] MEDS: CHOLECALCIFEROL 400 UNIT TAB PO SCH (09:46)
[2020-10-11] MEDS: FAMOTIDINE 20 MG TAB PO SCH ×2 (09:46→22:07)
[2020-10-11 11:02] LABS: African American GFR (CKD) 81.2 (60.0-200.0); Anion Gap 7.6 mmol/L (4.00-12.00); BUN/Creat Ratio 25.45 Ratio (12.00-20.00); Carbon Dioxide 27.4 mmol/L (21.6-31.8); Non-African American GFR(CKD) 70.1 (60.0-200.0); Potassium 4.8 mmol/L (3.5-5.5)
[2020-10-11 11:29] LABS: Glucose,Whole Blood 81 mg/dL (75-99)
--- NOTE | 2020-10-11 15:22 | P.PN ---
Subjective Progress Note Date: 10/11/20 Objective - Vital Signs Vital signs: Vital Signs Temp 98.3 F 10/11/20 13:56 Pulse 86 10/11/20 13:56 Resp 18 10/11/20 13:56 BP 122/73 10/11/20 13:56 Pulse Ox 94 L 10/11/20 13:56 Intake & Output 10/10/20 10/11/20 10/11/20 18:59 06:59 18:59 Intake Total 100 Balance 100 Intake: Oral 100 Other: Voiding Method Urinal # Voids 3 2 - Constitutional General appearance: Present: no acute distress - Respiratory Respiratory: bilateral: diminished - Cardiovascular Rhythm: regular - Gastrointestinal General gastrointestinal: Present: normal bowel sounds - Integumentary Integumentary: Present: normal - Psychiatric Psychiatric: Present: appropriate affect - Labs CBC & Chem 7: 10/11/20 07:45 10/11/20 07:45 Labs: Abnormal Lab Results - Last 24 Hours (Table) 10/11/20 10/11/20 10/11/20 Range/Units 06:49 07:45 07:45 WBC 16.8 H (3.8-10.6) k/uL Neutrophils # 14.4 H (1.3-7.7) k/uL Sodium 133 L (135-145) mmol/L BUN 28.0 H (9.0-27.0) mg/dL BUN/Creatinine Ratio 25.45 H (12.00-20.00) Ratio POC Glucose (mg/dL) 73 L (75-99) mg/dL Assessment and Plan (1) COVID-19 Narrative/Plan: Procedures computed Covid pneumonitis acute on chronic hypoxic respiratory failure. The patient is on 4 L of oxygen at home. He was on 10 L at the time of my evaluation. The patient was comfortable and is feeling frustrated that he is not improving faster Current Visit: Yes Status: Acute Code(s): U07.1 - COVID-19 SNOMED Code(s): 267117965 (2) Acute exacerbation of chronic obstructive pulmonary disease Narrative/Plan: Secondary to #1 patient denies any sputum production Current Visit: Yes Status: Acute Code(s): J44.1 - CHRONIC OBSTRUCTIVE PULMONARY DISEASE W (ACUTE) EXACERBATION SNOMED Code(s): 027898502 Plan: Acute: Pneumonitis status post treatment with Solu-Medrol, oral Decadron, Lovenox, vitamin C, vitamin D, melatonin, zinc. The patient completed a course of from this severe, he is currently on 10 L high flow nasal cannula. He is on 4 L of oxygen at baseline
[2020-10-11 16:41] LABS: Glucose,Whole Blood 119 mg/dL (75-99)
--- NOTE | 2020-10-11 18:40 | P.PN ---
Subjective Progress Note Date: 10/11/20 On 10/11/2020, the patient is on 10 L of oxygen by nasal cannula. No new complaints. He feels better. Unable to wean down his FiO2 any further. The patient has normal electrolytes. The patient has normal renal function. The white cell count 16.8 with a hemoglobin of 15.7. The patient remains on oral Decadron 6 mg by mouth daily. Objective - Vital Signs Vital signs: Vital Signs Temp 98.3 F 10/11/20 17:50 Pulse 79 10/11/20 17:50 Resp 16 10/11/20 17:50 BP 110/68 10/11/20 17:50 Pulse Ox 94 L 10/11/20 17:50 Intake & Output 10/10/20 10/11/20 10/11/20 18:59 06:59 18:59 Intake Total 100 Balance 100 Intake: Oral 100 Other: Voiding Method Urinal # Voids 3 2 - Exam GENERAL EXAM: Alert, pleasant, 65-year-old male patient, and 10 L high flow nasal cannula, in mild respiratory distress. HEENT: PERRLA, EOMI, no icterus. CHEST: No chest wall deformity. Symmetrical expansion. LUNGS: Equal air entry with bilateral scattered rhonchi, diffuse crackles CVS: Regular rate and rhythm, normal S1 and S2, no gallops, no murmurs, no rubs ABDOMEN: Soft, nontender. No hepatosplenomegaly, normal bowel sounds, no guarding or rigidity. EXTREMITIES: clubbing noted in bilateral fingernails, no edema, no cyanosis, 2+ pulses and upper and lower extremities. MUSCULOSKELETAL: Muscle strength and tone normal. SPINE: No scoliosis or deformity SKIN: No rashes CENTRAL NERVOUS SYSTEM: No focal deficits, tone is normal in all 4 extremities. PSYCHIATRIC: Alert and oriented -3. Appropriate affect. Intact judgment and insight. - Labs CBC & Chem 7: 10/11/20 07:45 10/11/20 07:45 Labs: Abnormal Lab Results - Last 24 Hours (Table) 10/11/20 10/11/20 10/11/20 Range/Units 06:49 07:45 07:45 WBC 16.8 H (3.8-10.6) k/uL Neutrophils # 14.4 H (1.3-7.7) k/uL Sodium 133 L (135-145) mmol/L BUN 28.0 H (9.0-27.0) mg/dL BUN/Creatinine Ratio 25.45 H (12.00-20.00) Ratio POC Glucose (mg/dL) 73 L (75-99) mg/dL 10/11/20 Range/Units 16:38 WBC (3.8-10.6) k/uL Neutrophils # (1.3-7.7) k/uL Sodium (135-145) mmol/L BUN (9.0-27.0) mg/dL BUN/Creatinine Ratio (12.00-20.00) Ratio POC Glucose (mg/dL) 119 H (75-99) mg/dL Assessment and Plan Plan: 1 Acute on chronic hypoxic respiratory failure related to acute COVID 19 pneumonitis. Received convalescent plasma, completed Remdesivir, and oral Decadron.. The patient's condition is essentially unchanged. Chest x-ray still showing pulmonary fibrosis with interstitial infiltrates bilaterally. He is on 10 L of oxygen and his pulse ox is ranging between 85-90%. Have the patient on Decadron 6 mg by mouth daily. 2 Chronic hypoxic respiratory failure related to history of COPD and underlying interstitial lung disease, normally wears 4 L of oxygen on as-needed basis 3 Former smoker 4 History of hypothyroidism 5 Elevated inflammatory markers related to acute COVID 19 infection 6 Elevated d-dimer of 0.99 on admission, with no evidence of pulmonary embolism on CT chest Plan: Decadron 6 mg by mouth daily Attempts to wean down the FiO2 further, for now his oxygenation is borderline at around 10 L. We'll give him another 24 hours. His baseline oxygen flow at home as at 4 L Continue vitamin supplements, Pepcid, melatonin Titrate down the FiO2 as tolerated Repeat chest x-ray, d-dimer an inflammatory markers in a.m., the LDH is mildly elevated, CRP is normal. Incentive spirometer We will continue to follow
[2020-10-11 20:33] LABS: Glucose,Whole Blood 119 mg/dL (75-99)
[2020-10-11] MEDS: ATORVASTATIN 20 MG TAB PO SCH (22:06)
[2020-10-11] MEDS: MELATONIN 5 MG TABLET PO SCH (22:07)
[2020-10-11] MEDS: MONTELUKAST 10 MG TAB PO SCH (22:07)
[2020-10-11] MEDS: SALINE NASAL GEL 14.1 GM TUBE TOPICAL PRN (22:08)
[2020-10-12] MEDS: ALBUTEROL HFA INHALER INHALATION SCH ×6 (01:04→20:38)
[2020-10-12] MEDS: SALINE NASAL GEL 14.1 GM TUBE TOPICAL PRN (06:03)
[2020-10-12] MEDS: LEVOTHYROXINE 75 MCG TAB PO SCH (06:03)
[2020-10-12 07:01] LABS: Glucose,Whole Blood 93 mg/dL (75-99)
[2020-10-12 07:37] LABS: Basophils # (A) 0.1 k/uL (0-0.2); Basophils % (A) 1 %; Eosinophils # (A) 0.2 k/uL (0-0.7); Eosinophils % (A) 2 %; HCT 43.7 % (39.0-53.0); HGB 14.5 gm/dL (13.0-17.5); Lymphocytes # (A) 0.8 k/uL (1.0-4.8); Lymphocytes % (A) 6 %; MCHC 33.2 g/dL (31.0-37.0); MCV 87.4 fL (80.0-100.0); Mean Platelet Volume 7.8; Monocytes # (A) 0.8 k/uL (0-1.0); Monocytes % (A) 5 %; Neutrophils # (A) 12.9 k/uL (1.3-7.7); Neutrophils % (A) 87 %; Platelet Count 297 k/uL (150-450); RDW 12.6 % (11.5-15.5); WBC 14.9 k/uL (3.8-10.6)
[2020-10-12] MEDS: SYMBICORT 160-4.5 MCG INHALER INHALATION SCH ×2 (08:13→20:38)
[2020-10-12] MEDS ORDERED: predniSONE 10 MG TAB PO SCH (09:00)
[2020-10-12] MEDS: dexAMETHasone 2 MG TAB PO SCH (09:22)
[2020-10-12] MEDS: ENOXAPARIN 40 MG/0.4 ML SYRINGE SQ SCH (09:22)
[2020-10-12] MEDS: FAMOTIDINE 20 MG TAB PO SCH ×2 (09:22→20:24)
[2020-10-12] MEDS: ASCORBIC ACID 500 MG TAB PO SCH (09:22)
[2020-10-12] MEDS: ZINC SULFATE 220 MG CAP PO SCH (09:23)
[2020-10-12] MEDS: polyethylene glycoL 3350 17 GM POWD.PACK PO SCH (09:23)
[2020-10-12] MEDS: CHOLECALCIFEROL 400 UNIT TAB PO SCH (09:23)
[2020-10-12] MEDS: CALCIUM CARBONATE 500 MG CHEWABLE PO PRN ×2 (11:29→20:23)
--- NOTE | 2020-10-12 11:52 | P.PN ---
Subjective Progress Note Date: 10/12/20 On 10/12/2020 the patient continues to be on 10 L. Unable to wean it down any further. Despite this high oxygen requirements, the patient is feeling well. No worsening shortness of breath. He remains on oral Decadron. No nausea vomiting or diarrhea. No abdominal pain. No chest pain. No other significant complaints otherwise for now. No altered mentation. Tolerating his diet. Objective - Vital Signs Vital signs: Vital Signs Temp 98.5 F 10/12/20 09:28 Pulse 70 10/12/20 09:28 Resp 17 10/12/20 09:28 BP 109/67 10/12/20 09:28 Pulse Ox 92 L 10/12/20 09:28 Intake & Output 10/11/20 10/12/20 10/12/20 18:59 06:59 18:59 Output Total 325 Balance -325 Weight 73.3 kg Output: Urine 325 Other: # Voids 1 - Exam GENERAL EXAM: Alert, pleasant, 65-year-old male patient, and 10 L high flow nasal cannula, in mild respiratory distress. HEENT: PERRLA, EOMI, no icterus. CHEST: No chest wall deformity. Symmetrical expansion. LUNGS: Equal air entry with bilateral scattered rhonchi, diffuse crackles CVS: Regular rate and rhythm, normal S1 and S2, no gallops, no murmurs, no rubs ABDOMEN: Soft, nontender. No hepatosplenomegaly, normal bowel sounds, no guarding or rigidity. EXTREMITIES: clubbing noted in bilateral fingernails, no edema, no cyanosis, 2+ pulses and upper and lower extremities. MUSCULOSKELETAL: Muscle strength and tone normal. SPINE: No scoliosis or deformity SKIN: No rashes CENTRAL NERVOUS SYSTEM: No focal deficits, tone is normal in all 4 extremities. PSYCHIATRIC: Alert and oriented -3. Appropriate affect. Intact judgment and insight. - Labs CBC & Chem 7: 10/12/20 07:24 10/11/20 07:45 Labs: Abnormal Lab Results - Last 24 Hours (Table) 10/11/20 10/11/20 10/12/20 Range/Units 16:38 20:31 07:24 WBC 14.9 H (3.8-10.6) k/uL Neutrophils # 12.9 H (1.3-7.7) k/uL Lymphocytes # 0.8 L (1.0-4.8) k/uL POC Glucose (mg/dL) 119 H 119 H (75-99) mg/dL Assessment and Plan Plan: 1 Acute on chronic hypoxic respiratory failure related to acute COVID 19 pneumonitis. Received convalescent plasma, completed Remdesivir, and oral Decadron.. The patient's condition is essentially unchanged. Chest x-ray still showing pulmonary fibrosis with interstitial infiltrates bilaterally. He is on 10 L of oxygen and his pulse ox is ranging between 85-90%. Have the patient on Decadron 6 mg by mouth daily. No change in his condition over the past 24 hours and the patient remains on 10 L of oxygen by nasal cannula. 2 Chronic hypoxic respiratory failure related to history of COPD and underlying interstitial lung disease, normally wears 4 L of oxygen on as-needed basis 3 Former smoker 4 History of hypothyroidism 5 Elevated inflammatory markers related to acute COVID 19 infection 6 Elevated d-dimer of 0.99 on admission, with no evidence of pulmonary embolism on CT chest Plan: Decadron 6 mg by mouth daily Attempts to wean down the FiO2 further, for now his oxygenation is borderline at around 10 L. We'll give him another 24 hours. His baseline oxygen flow at home as at 4 L. Intensive been unsuccessful in the past 24 hours. We'll continue trying. Continue vitamin supplements, Pepcid, melatonin Titrate down the FiO2 as tolerated Repeat chest x-ray, d-dimer an inflammatory markers in a.m., the LDH is mildly elevated, CRP is normal. Incentive spirometer We will continue to follow
[2020-10-12 12:31] LABS: African American GFR (CKD) 91.1 (60.0-200.0); Anion Gap 6.6 mmol/L (4.00-12.00); Calcium 8.6 mg/dL (8.7-10.3); Carbon Dioxide 26.4 mmol/L (21.6-31.8); Non-African American GFR(CKD) 78.6 (60.0-200.0)
[2020-10-12] MEDS: MONTELUKAST 10 MG TAB PO SCH (20:24)
[2020-10-12] MEDS: MELATONIN 5 MG TABLET PO SCH (20:24)
[2020-10-12] MEDS: ATORVASTATIN 20 MG TAB PO SCH (20:24)
--- NOTE | 2020-10-12 20:50 | P.PN ---
Subjective Progress Note Date: 10/12/20 (delayed charting seen at 1215) Principal diagnosis: shortness of breath Patient is a 65-year-old male past medical history of pulmonary fibrosis on chronic home oxygen at 4 L nasal cannula, hypertension, and hypothyroidism who presented with shortness of breath. He was subsequently diagnosed with Covid pneumonitis and has had a prolonged hospital stay secondary to hypoxic respiratory failure. Patient seen and examined at bedside. His breathing is much improved. He continues to think he improves every day. He has not been taking his inhalers as they induce coughing. He denies any nausea or vomiting. He is eating and drinking well. His girlfriend is at home to help him upon discharge. He has also signed up for home health care. [place] to [facility] and would prefer to follow-up with pulmonary there. General: Ill appearing, no distress, appears at stated age Derm: warm, dry Head: atraumatic, normocephalic, symmetric Eyes: EOMI, no lid lag, anicteric sclera Mouth: no lip lesion, mucus membranes moist Cardiovascular: S1S2 reg, no murmur, positive posterior tibial pulse bilateral, Lungs: Crackles bilateral bases, no accessory muscle use Abdominal: soft, nontender to palpation, no guarding, no appreciable organomegaly Ext: no gross muscle atrophy, no edema, no contractures Neuro: CN II-XI grossly intact, no focal neuro deficits Psych: Alert, oriented, appropriate affect Covid March 15 pneumonitis with acute on chronic hypoxic respiratory failure on 4 L home O2 -Status post Remdesivir, convalescent plasma -Continue to wean O2. Pulse ox acceptable range 88% or above - On 8L high flow - Dexamethasone, Vit D 3, VIt C, Zinc, Pepcid, melatonin - D/W pulmonary - repeat D-dimer in AM - LDH and CRP significantly improved no need for repeat. - Lovenox COPD and ILD - outpatient follow-up Lukocytosis - improving and likely due to steroids Ileus, improved -Continue with MiraLAX Hyperkalemia -Resolved -Status post 2 doses of Kayexalate, lisinopril continued and suspected to be the cause of hyperkalemia History of hypertension -Continue to follow blood pressures -Off lisinopril secondary to hyperkalemia Chronic conditions: Hypertension, dyslipidemia, hypothyroidism DVT prophylaxis: Lovenox Discussed with: Patient, nursing, Dr. Del Valle Anticipated discharge: 3-[address]: home with home health A total of 35 minutes was spent on the care of this complex patient more than 50% of the time was spent in counseling and care coordination. Objective - Vital Signs Vital signs: Vital Signs Temp 98.5 F 10/12/20 17:27 Pulse 100 10/12/20 17:27 Resp 20 10/12/20 17:27 BP 131/77 10/12/20 17:27 Pulse Ox 90 L 10/12/20 17:27 Intake & Output 10/12/20 10/12/20 10/13/20 06:59 18:59 06:59 Intake Total 300 Output Total 325 Balance -325 300 Weight 73.3 kg Intake: Oral 300 Output: Urine 325 Other: Voiding Method Urinal # Voids 1 300 - Labs CBC & Chem 7: 10/12/20 07:24 10/12/20 07:24 Labs: Abnormal Lab Results - Last 24 Hours (Table) 10/12/20 10/12/20 Range/Units 07:24 07:24 WBC 14.9 H (3.8-10.6) k/uL Neutrophils # 12.9 H (1.3-7.7) k/uL Lymphocytes # 0.8 L (1.0-4.8) k/uL Sodium 134 L (135-145) mmol/L BUN 29.0 H (9.0-27.0) mg/dL BUN/Creatinine Ratio 29.00 H (12.00-20.00) Ratio Calcium 8.6 L (8.7-10.3) mg/dL
[2020-10-13] MEDS: LEVOTHYROXINE 75 MCG TAB PO SCH (05:44)
[2020-10-13] MEDS: FAMOTIDINE 20 MG TAB PO SCH ×2 (08:57→20:10)
[2020-10-13] MEDS: ENOXAPARIN 40 MG/0.4 ML SYRINGE SQ SCH (08:57)
[2020-10-13] MEDS: CHOLECALCIFEROL 400 UNIT TAB PO SCH (08:57)
[2020-10-13] MEDS: ZINC SULFATE 220 MG CAP PO SCH (08:57)
[2020-10-13] MEDS: CALCIUM CARBONATE 500 MG CHEWABLE PO PRN ×3 (08:57→20:09)
[2020-10-13] MEDS: polyethylene glycoL 3350 17 GM POWD.PACK PO SCH (08:58)
[2020-10-13] MEDS: dexAMETHasone 2 MG TAB PO SCH (10:28)
[2020-10-13] MEDS: ASCORBIC ACID 500 MG TAB PO SCH (10:29)
--- NOTE | 2020-10-13 11:39 | P.PN ---
Subjective Progress Note Date: 10/13/20 On 10/13/2020, the patient is on 8 L. We are allowing pulse oximeters of 88% and above. No worsening shortness of breath. He is resting comfortably in bed. No chest pain. The method copy no significant sputum production. No altered mentation. No new complaints otherwise for now. Remains on oral Decadron. He is tolerating diet. No oropharyngeal candidiasis. Note that the patient has pulmonate fibrosis and the patient is on oxygen at4L. Objective - Vital Signs Vital signs: Vital Signs Temp 98 F 10/13/20 09:50 Pulse 106 H 10/13/20 09:50 Resp 18 10/13/20 09:50 BP 115/79 10/13/20 09:50 Pulse Ox 88 L 10/13/20 11:19 Intake & Output 10/12/20 10/13/20 10/13/20 18:59 06:59 18:59 Intake Total 300 240 Balance 300 240 Weight 68.8 kg Intake: Oral 300 240 Other: Voiding Method Urinal Urinal Urinal # Voids 300 - Exam GENERAL EXAM: Alert, pleasant, 65-year-old male patient, and 8L high flow nasal cannula, in mild respiratory distress. HEENT: PERRLA, EOMI, no icterus. CHEST: No chest wall deformity. Symmetrical expansion. LUNGS: Equal air entry with bilateral scattered rhonchi, diffuse crackles CVS: Regular rate and rhythm, normal S1 and S2, no gallops, no murmurs, no rubs ABDOMEN: Soft, nontender. No hepatosplenomegaly, normal bowel sounds, no guarding or rigidity. EXTREMITIES: clubbing noted in bilateral fingernails, no edema, no cyanosis, 2+ pulses and upper and lower extremities. MUSCULOSKELETAL: Muscle strength and tone normal. SPINE: No scoliosis or deformity SKIN: No rashes CENTRAL NERVOUS SYSTEM: No focal deficits, tone is normal in all 4 extremities. PSYCHIATRIC: Alert and oriented -3. Appropriate affect. Intact judgment and insight. - Labs CBC & Chem 7: 10/12/20 07:24 10/12/20 07:24 Labs: Abnormal Lab Results - Last 24 Hours (Table) 10/12/20 Range/Units 07:24 Sodium 134 L (135-145) mmol/L BUN 29.0 H (9.0-27.0) mg/dL BUN/Creatinine Ratio 29.00 H (12.00-20.00) Ratio Calcium 8.6 L (8.7-10.3) mg/dL Assessment and Plan Plan: 1 Acute on chronic hypoxic respiratory failure related to acute COVID 19 pneumonitis. Received convalescent plasma, completed Remdesivir, and oral Decadron.. The patient's condition is essentially unchanged. Chest x-ray still showing pulmonary fibrosis with interstitial infiltrates bilaterally. He is on 8 L of oxygen and his pulse ox is ranging between 85-90%. Have the patient on Decadron 6 mg by mouth daily. Please allow the lower pulse ox on this patient. 88% and above should be okay as long as the patient is not symptomatic. 2 Chronic hypoxic respiratory failure related to history of COPD and underlying interstitial lung disease, normally wears 4 L of oxygen on as-needed basis 3 Former smoker 4 History of hypothyroidism 5 Elevated inflammatory markers related to acute COVID 19 infection 6 Elevated d-dimer of 0.99 on admission, with no evidence of pulmonary embolism on CT chest Plan: Decadron 6 mg by mouth daily FiO2 has been weaned down to 8 L. His baseline oxygen flow at home as at 4 L. Intensive been unsuccessful in the past 24 hours. We'll continue trying. Continue vitamin supplements, Pepcid, melatonin Titrate down the FiO2 as tolerated, allowing a pulse ox of above 88% Repeat chest x-ray, d-dimer an inflammatory markers in a.m., the LDH is mildly elevated, CRP is normal. Incentive spirometer We will continue to follow
--- NOTE | 2020-10-13 18:56 | P.PN ---
Subjective Progress Note Date: 10/13/20 (delayed charting seen at 1105) Principal diagnosis: shortness of breath Patient is a 65-year-old male past medical history of pulmonary fibrosis on chronic home oxygen at 4 L nasal cannula, hypertension, and hypothyroidism who presented with shortness of breath. In the emergency department he underwent an extensive evaluation. Upon arrival with paramedics his pulse ox was 77% on 4 L and he was increased to 15 L with pulse of 90% initial chest x-ray showed scattered mid to lower lung field infiltrates. He was subsequently diagnosed with Covid pneumonitis. He was started on empiric right antibiotics in the form of Zithromax and Rocephin, he received a prophy lactic dose of Lovenox and a dose of IV Decadron. He continued to require high flow nasal cannula at 15 L. He underwent a CTA of the chest which showed no evidence of pulmonary embolism but did show moderate to severe emphysematous changes with underlying pulmonary fibrosis. Patient had reported a history of interstitial lung disease diagnosed on biopsy approximately 10 years ago as well as being on oxygen for approximately 3-4 years. He did ultimately require both a 15 year-old nasal cannula with a nonrebreather on top of it. He then was subsequently placed on Airvo. He did receive remdesivir and convalesent plasma on top of his steroids. He has had a prolonged hospital stay secondary to hypoxic respiratory failure. Patient seen and examined at bedside. Was able to sit in the chair yesterday but felt quite winded. Has not yet been ambulating to the bathroom but has use the bedside commode. No chest pain. Thinks breathing is back to baseline. No nausea or vomiting. We had a very long discussion that patient will need to work with physical therapy or may end up needing to go to rehab. General: Ill appearing, no distress, appears at stated age Derm: warm, dry Head: atraumatic, normocephalic, symmetric Eyes: EOMI, no lid lag, anicteric sclera Mouth: no lip lesion, mucus membranes moist Cardiovascular: S1S2 reg, no murmur, positive posterior tibial pulse bilateral, Lungs: Crackles bilateral bases, no accessory muscle use Abdominal: soft, nontender to palpation, no guarding, no appreciable organomegaly Ext: no gross muscle atrophy, no edema, no contractures Neuro: CN II-XI grossly intact, no focal neuro deficits Psych: Alert, oriented, appropriate affect Covid 19 pneumonitis with acute on chronic hypoxic respiratory failure on 4 L home O2 -Status post Remdesivir, convalescent plasma -Continue to wean O2. Pulse ox acceptable range 88% or above - On 8L high flow - Dexamethasone, Vit D 3, Vit C, Zinc, Pepcid, melatonin - D/W pulmonary - repeat D-dimer in AM - LDH and CRP significantly improved no need for repeat. - Lovenox COPD and ILD - outpatient follow-up Leukocytosis - improving and likely due to steroids Ileus, improved -Continue with MiraLAX Hyperkalemia -Resolved -Status post 2 doses of Kayexalate, lisinopril continued and suspected to be the cause of hyperkalemia History of hypertension -Continue to follow blood pressures -Off lisinopril secondary to hyperkalemia Chronic conditions: Hypertension, dyslipidemia, hypothyroidism DVT prophylaxis: Lovenox Discussed with: Patient, nursing, Dr. Del Valle Anticipated discharge: 3-[address]: home with home health A total of 35 minutes was spent on the care of this complex patient more than 50% of the time was spent in counseling and care coordination. Objective - Vital Signs Vital signs: Vital Signs Temp 97.7 F 10/13/20 14:00 Pulse 85 10/13/20 14:00 Resp 20 10/13/20 14:00 BP 104/65 10/13/20 14:00 Pulse Ox 88 L 10/13/20 11:19 Intake & Output 10/12/20 10/13/20 10/13/20 18:59 06:59 18:59 Intake Total 300 240 Balance 300 240 Weight 68.8 kg Intake: Oral 300 240 Other: Voiding Method Urinal Urinal Urinal # Voids 300 2 # Bowel Movements 1 - Labs CBC & Chem 7: 10/12/20 07:24 10/12/20 07:24
[2020-10-13] MEDS: MONTELUKAST 10 MG TAB PO SCH (20:10)
[2020-10-13] MEDS: MELATONIN 5 MG TABLET PO SCH (20:10)
[2020-10-13] MEDS: ATORVASTATIN 20 MG TAB PO SCH (20:10)
[2020-10-14] MEDS: LEVOTHYROXINE 75 MCG TAB PO SCH (05:48)
[2020-10-14 06:31] LABS: Basophils # (A) 0.1 k/uL (0-0.2); Basophils % (A) 0 %; Eosinophils # (A) 0.2 k/uL (0-0.7); Eosinophils % (A) 1 %; HCT 44.6 % (39.0-53.0); HGB 14.7 gm/dL (13.0-17.5); Lymphocytes # (A) 0.8 k/uL (1.0-4.8); Lymphocytes % (A) 4 %; MCH 28.9 pg (25.0-35.0); MCV 87.6 fL (80.0-100.0); Mean Platelet Volume 7.7; Monocytes # (A) 0.8 k/uL (0-1.0); Monocytes % (A) 4 %; Neutrophils # (A) 18.2 k/uL (1.3-7.7); Neutrophils % (A) 90 %; Platelet Count 293 k/uL (150-450); RBC 5.09 m/uL (4.30-5.90); RDW 12.6 % (11.5-15.5); WBC 20.3 k/uL (3.8-10.6)
[2020-10-14] MEDS: ZINC SULFATE 220 MG CAP PO SCH (08:04)
[2020-10-14] MEDS: CHOLECALCIFEROL 400 UNIT TAB PO SCH (08:04)
[2020-10-14] MEDS: ENOXAPARIN 40 MG/0.4 ML SYRINGE SQ SCH (08:04)
[2020-10-14] MEDS: FAMOTIDINE 20 MG TAB PO SCH ×2 (08:04→20:28)
[2020-10-14] MEDS: ASCORBIC ACID 500 MG TAB PO SCH (08:04)
[2020-10-14] MEDS: dexAMETHasone 2 MG TAB PO SCH (08:04)
[2020-10-14] MEDS: polyethylene glycoL 3350 17 GM POWD.PACK PO SCH (08:05)
[2020-10-14] MEDS: CALCIUM CARBONATE 500 MG CHEWABLE PO PRN ×2 (08:13→20:28)
[2020-10-14 09:28] LABS: ALT 32 U/L (10-49); AST 17 U/L (14-35); African American GFR (CKD) 91.1 (60.0-200.0); Albumin/Globulin Ratio 2.11 (1.60-3.17); Alkaline Phosphatase 88 U/L (41-126); C Reactive Protein <0.4 mg/dL (0.0-0.8); Carbon Dioxide 25.1 mmol/L (21.6-31.8); Chloride 98 mmol/L (96-109); Globulin 1.9 g/dL (1.6-3.3); Glucose 78 mg/dL (70-110); LDH 302 U/L (120-246); Non-African American GFR(CKD) 78.6 (60.0-200.0); Potassium 4.9 mmol/L (3.5-5.5); Sodium 133 mmol/L (135-145); Total Bilirubin 1.1 mg/dL (0.3-1.2); Total Protein 5.9 g/dL (6.2-8.2)
--- NOTE | 2020-10-14 14:00 | XR ---
EXAMINATION TYPE: XR chest 1V portable DATE OF EXAM: 10/14/2020 HISTORY: Shortness of breath. COMPARISON: 10/17/2020 TECHNIQUE: Single view of the chest is submitted. FINDINGS: Demonstrated are scattered senescent parenchymal change. Coarse basilar infiltrates persist without significant change. The heart is stable. Hilar and mediastinal structures are within normal limits. Degenerative changes are seen of the dorsal spine. IMPRESSION: 1. Coarse basilar infiltrates persist without significant change.
--- NOTE | 2020-10-14 15:49 | P.PN ---
Subjective Progress Note Date: 10/14/20 (delayed charting seen at 1045) Principal diagnosis: shortness of breath Patient is a 65-year-old male past medical history of pulmonary fibrosis on chronic home oxygen at 4 L nasal cannula, hypertension, and hypothyroidism who presented with shortness of breath. In the emergency department he underwent an extensive evaluation. Upon arrival with paramedics his pulse ox was 77% on 4 L and he was increased to 15 L with pulse of 90% initial chest x-ray showed scattered mid to lower lung field infiltrates. He was subsequently diagnosed with Covid pneumonitis. He was started on empiric right antibiotics in the form of Zithromax and Rocephin, he received a prophy lactic dose of Lovenox and a dose of IV Decadron. He continued to require high flow nasal cannula at 15 L. He underwent a CTA of the chest which showed no evidence of pulmonary embolism but did show moderate to severe emphysematous changes with underlying pulmonary fibrosis. Patient had reported a history of interstitial lung disease diagnosed on biopsy approximately 10 years ago as well as being on oxygen for approximately 3-4 years. He did ultimately require both a 15 year-old nasal cannula with a nonrebreather on top of it. He then was subsequently placed on Airvo. He did receive remdesivir and convalesent plasma on top of his steroids. He has had a prolonged hospital stay secondary to hypoxic respiratory failure. He O2 was weaned starting on 10/12. Patient seen and examined at bedside. Breathing the same, cough unchanged, no nausea, no vomiting, no diarrhea, no dysuria General: Ill appearing, no distress, appears at stated age Derm: warm, dry Head: atraumatic, normocephalic, symmetric Eyes: EOMI, no lid lag, anicteric sclera Mouth: no lip lesion, mucus membranes moist Cardiovascular: S1S2 reg, no murmur, positive posterior tibial pulse bilateral, Lungs: Decreased bs bilateral, no accessory muscle use Abdominal: soft, nontender to palpation, no guarding, no appreciable organomegaly Ext: no gross muscle atrophy, no edema, no contractures Neuro: CN II-XI grossly intact, no focal neuro deficits Psych: Alert, oriented, appropriate affect Covid 19 pneumonitis with acute on chronic hypoxic respiratory failure on 4 L home O2 -Status post Remdesivir, convalescent plasma -Continue to wean O2. Pulse ox acceptable range 88% or above - On 8L high flow waen to 6 - Dexamethasone, Vit D 3, Vit C, Zinc, Pepcid, melatonin - Pulmonary recs - repeat D-dimer in AM - LDH and CRP significantly improved no need for repeat. - Lovenox COPD and ILD - outpatient follow-up Leukocytosis - worsening, no signs/ symptoms of infection - check procalcitonin level Ileus, improved -Continue with MiraLAX Hyperkalemia -Resolved -Status post 2 doses of Kayexalate, lisinopril continued and suspected to be the cause of hyperkalemia History of hypertension -Continue to follow blood pressures -Off lisinopril secondary to hyperkalemia Chronic conditions: Hypertension, dyslipidemia, hypothyroidism DVT prophylaxis: Lovenox Discussed with: Patient, nursing, Dr. Del Valle Anticipated discharge: 3-[address]: home with home health A total of 35 minutes was spent on the care of this complex patient more than 50% of the time was spent in counseling and care coordination. Objective - Vital Signs Vital signs: Vital Signs Temp 98.5 F 10/14/20 13:54 Pulse 73 10/14/20 13:54 Resp 18 10/14/20 13:54 BP 121/56 10/14/20 13:54 Pulse Ox 95 10/14/20 13:54 Intake & Output 10/13/20 10/14/20 10/14/20 18:59 06:59 18:59 Output Total 650 Balance -650 Weight 68.8 kg Output: Urine 650 Other: Voiding Method Urinal Urinal # Voids 2 # Bowel Movements 1 - Labs CBC & Chem 7: 10/14/20 06:15 10/14/20 06:15 Labs: Abnormal Lab Results - Last 24 Hours (Table) 10/14/20 10/14/20 Range/Units 06:15 06:15 WBC 20.3 H (3.8-10.6) k/uL Neutrophils # 18.2 H (1.3-7.7) k/uL Lymphocytes # 0.8 L (1.0-4.8) k/uL Sodium 133 L (135-145) mmol/L BUN 29.0 H (9.0-27.0) mg/dL BUN/Creatinine Ratio 29.00 H (12.00-20.00) Ratio Lactate Dehydrogenase 302 H (120-246) U/L Total Protein 5.9 L (6.2-8.2) g/dL
--- NOTE | 2020-10-14 17:05 | P.PN ---
Subjective Progress Note Date: 10/14/20 Principal diagnosis: Acute hypoxic respiratory failure secondary to covid 19 pneumonitis 65-year-old white male patient with a history of COPD, former smoker, on home oxygen at 4 L/m, was brought into the hospital on 09/27/2020 per EMS with the worsening shortness of breath, and worsening hypoxemia, patient was tested positive for COVID 19, 2 days ago. Upon initial evaluation by paramedics his pulse ox was 77% on 4 L, and his oxygen flow was increased to 15 L with a pulse ox of 90%. His chest x-ray showed scattered mid and lower lung field infiltrates. His lab work showed d-dimer 0.99, LDH of 869, CRP of 35, influenza screen was negative, lactic acid was 2.0, magnesium level is 2.7, blood gas was obtained on 100% FiO2 showing pO2 of 64, pCO2 31 and pH of 7.43. Patient was started on empiric antibiotics in the form of azithromycin and Rocephin, prophylactic dose of Lovenox, and IV Decadron 6 mg daily. He remains on high flow oxygen at 15 L, and his pulse ox is 93%, his breathing is labored. His CTA chest showed no evidence of pulmonary embolism, it did show moderately severe emphysematous changes and underlying pulmonary fibrosis. Patient states that he had bronchoscopy before and [place], however currently does not follow with a customer service specialist, never had a lung biopsy for diagnosis of interstitial lung disease, his been on oxygen on as-needed basis, for a period of 10 years. During our evaluation patient is short of breath with conversation, his pulse ox is very marginal he is only sat 90-93%, on 15 L O2. Patient was reevaluated today on 09/28/20, I evaluated the patient again in the ER this morning, and I'll arrange for the patient to be admitted to the floor instead of going to the ICU. Patient is feeling much better today compared to how he felt yesterday. Remains on high flow cannula at 15 L/m, patient is feeling better, breathing easier, his O2 saturation is 94%. He had a T-max of 98.9. Blood pressure is 169/72 heart rate is 104. Electrolytes are normal BUN is down to 45 creatinine is down to 1.25. Patient is tolerating remdesivir and the Covid 19 cocktail quite well. On 10/13/2020, the patient is on 8 L. We are allowing pulse oximeters of 88% and above. No worsening shortness of breath. He is resting comfortably in bed. No chest pain. The method copy no significant sputum production. No altered mentation. No new complaints otherwise for now. Remains on oral Decadron. He is tolerating diet. No oropharyngeal candidiasis. Note that the patient has pulmonate fibrosis and the patient is on oxygen at4L. on 10/01/20, patient remains on 8 and sometimes as high as 15 L nasal cannula to maintain O2 saturation in the 90s. Clinically the patient is feeling better, breathing a lot easier, he is mostly maintained on 8 L high flow nasal cannula. And could not be titrated down, chest x-ray continues to show bilateral interstitial infiltrates, and possibly some component of interstitial lung disease WBC count today is up to 20.3 hemoglobin is 14.7 and lites are normal, pro-calcitonin level remains low at 0.06. Inflammatory markers are improving Objective - Vital Signs Vital signs: Vital Signs Temp 98.5 F 10/14/20 13:54 Pulse 73 10/14/20 13:54 Resp 18 10/14/20 13:54 BP 121/56 10/14/20 13:54 Pulse Ox 95 10/14/20 13:54 Intake & Output 10/13/20 10/14/20 10/14/20 18:59 06:59 18:59 Output Total 650 Balance -650 Weight 68.8 kg Output: Urine 650 Other: Voiding Method Urinal Urinal # Voids 2 # Bowel Movements 1 - Exam GENERAL EXAM: Alert, very pleasant, 65-year-old white female, on 8 L high flow nasal cannula in no distress HEENT: PERRLA, EOMI, no icterus. CHEST: No chest wall deformity. Symmetrical expansion. LUNGS: Equal air entry with diffuse crackles CVS: Regular rate and rhythm, normal S1 and S2, no gallops, no murmurs, no rubs ABDOMEN: Soft, nontender. No hepatosplenomegaly, normal bowel sounds, no guarding or rigidity. EXTREMITIES: clubbing noted in bilateral fingernails, no edema, no cyanosis, 2+ pulses and upper and lower extremities. MUSCULOSKELETAL: Muscle strength and tone normal. SPINE: No scoliosis or deformity SKIN: No rashes CENTRAL NERVOUS SYSTEM: Alert and oriented -3. No focal deficits, tone is normal in all 4 extremities. PSYCHIATRIC: Alert and oriented -3. Appropriate affect. Intact judgment and insight. - Labs CBC & Chem 7: 10/14/20 06:15 10/14/20 06:15 Labs: Abnormal Lab Results - Last 24 Hours (Table) 10/14/20 10/14/20 Range/Units 06:15 06:15 WBC 20.3 H (3.8-10.6) k/uL Neutrophils # 18.2 H (1.3-7.7) k/uL Lymphocytes # 0.8 L (1.0-4.8) k/uL Sodium 133 L (135-145) mmol/L BUN 29.0 H (9.0-27.0) mg/dL BUN/Creatinine Ratio 29.00 H (12.00-20.00) Ratio Lactate Dehydrogenase 302 H (120-246) U/L Total Protein 5.9 L (6.2-8.2) g/dL Assessment and Plan Assessment: #1. Acute on chronic hypoxic respiratory failure related to acute COVID 19 pneumonitis #2. Chronic hypoxic respiratory failure related to history of COPD and underlying interstitial lung disease, normally wears 4 L of oxygen on as-needed basis #3. Former smoker #4. History of hypothyroidism #5. Elevated inflammatory markers related to acute COVID 19 infection #6. Elevated d-dimer of 0.99 on admission, with no evidence of pulmonary embolism on CT chest Recommendation: Continue oxygen and titrate accordingly. Continue the Covid 19 cocktail. Done with remdesivir We'll arrange for the patient to be transferred to a regular medical floor instead of ICU We'll continue to follow. Prognosis remains guarded, patient does have significant mortalities and morbidities. Time with Patient: Less than 30
[2020-10-14] MEDS: ATORVASTATIN 20 MG TAB PO SCH (20:28)
[2020-10-14] MEDS: MELATONIN 5 MG TABLET PO SCH (20:28)
[2020-10-14] MEDS: MONTELUKAST 10 MG TAB PO SCH (20:28)
[2020-10-15] MEDS: LEVOTHYROXINE 75 MCG TAB PO SCH (05:46)
[2020-10-15 07:13] LABS: Basophils % (A) 0 %; Eosinophils # (A) 0.2 k/uL (0-0.7); Eosinophils % (A) 2 %; HCT 42.8 % (39.0-53.0); HGB 13.8 gm/dL (13.0-17.5); Lymphocytes % (A) 7 %; MCHC 32.3 g/dL (31.0-37.0); MCV 86.9 fL (80.0-100.0); Mean Platelet Volume 7.6; Monocytes # (A) 0.6 k/uL (0-1.0); Monocytes % (A) 4 %; Neutrophils # (A) 12.6 k/uL (1.3-7.7); Neutrophils % (A) 87 %; Platelet Count 248 k/uL (150-450); RBC 4.92 m/uL (4.30-5.90); RDW 12.9 % (11.5-15.5); WBC 14.6 k/uL (3.8-10.6)
[2020-10-15] MEDS: dexAMETHasone 2 MG TAB PO SCH (07:30)
[2020-10-15] MEDS: ENOXAPARIN 40 MG/0.4 ML SYRINGE SQ SCH (07:30)
[2020-10-15] MEDS: CALCIUM CARBONATE 500 MG CHEWABLE PO PRN ×2 (07:30→20:12)
[2020-10-15] MEDS: FAMOTIDINE 20 MG TAB PO SCH ×2 (07:30→20:09)
[2020-10-15] MEDS: ASCORBIC ACID 500 MG TAB PO SCH (07:30)
[2020-10-15] MEDS: ZINC SULFATE 220 MG CAP PO SCH (07:30)
[2020-10-15] MEDS: CHOLECALCIFEROL 400 UNIT TAB PO SCH (07:30)
[2020-10-15] MEDS: polyethylene glycoL 3350 17 GM POWD.PACK PO SCH (07:31)
[2020-10-15] MEDS ORDERED: predniSONE 20 MG TAB PO SCH (09:00)
[2020-10-15] MEDS ORDERED: ALBUTEROL HFA INHALER INHALATION PRN (11:34)
[2020-10-15] MEDS: methylPREDNISolone SOD SUCCI 125 MG/2 ML VIAL IV SCH ×3 (12:13→23:27)
[2020-10-15 13:21] LABS: African American GFR (CKD) 91.1 (60.0-200.0); Calcium 8.9 mg/dL (8.7-10.3); Non-African American GFR(CKD) 78.6 (60.0-200.0); Potassium 5.2 mmol/L (3.5-5.5)
--- NOTE | 2020-10-15 14:34 | P.PN ---
Subjective Progress Note Date: 10/15/20 Principal diagnosis: COVID 19 pneumonitis 65-year-old white male patient with a history of COPD, former smoker, on home oxygen at 4 L/m, was brought into the hospital on 09/27/2020 per EMS with the worsening shortness of breath, and worsening hypoxemia, patient was tested positive for COVID 19, 2 days ago. Upon initial evaluation by paramedics his pulse ox was 77% on 4 L, and his oxygen flow was increased to 15 L with a pulse ox of 90%. His chest x-ray showed scattered mid and lower lung field infiltrates. His lab work showed d-dimer 0.99, LDH of 869, CRP of 35, influenza screen was negative, lactic acid was 2.0, magnesium level is 2.7, blood gas was obtained on 100% FiO2 showing pO2 of 64, pCO2 31 and pH of 7.43. Patient was started on empiric antibiotics in the form of azithromycin and Rocephin, prophylactic dose of Lovenox, and IV Decadron 6 mg daily. He remains on high flow oxygen at 15 L, and his pulse ox is 93%, his breathing is labored. His CTA chest showed no evidence of pulmonary embolism, it did show moderately severe emphysematous changes and underlying pulmonary fibrosis. Patient states that he had bronchoscopy before and [place], however currently does not follow with a computer system specialist, never had a lung biopsy for diagnosis of interstitial lung disease, his been on oxygen on as-needed basis, for a period of 10 years. During our evaluation patient is short of breath with conversation, his pulse ox is very marginal he is only sat 90-93%, on 15 L O2. On 10/02/2020 patient seen in follow-up on a general medical surgical floor, he still requiring high flow oxygen, currently on both 15 L high flow nasal cannula in 15 L nonrebreather with a pulse ox of 91-94%, he states his breathing is a bit easier, we place the patient on Airvo at 60 L and FiO2 of 92%, and his pulse ox is 97%, he is afebrile, he is on day 4 of Remdesivir treatment, is on high- dose IV steroids, he is on anticoagulation in the form of Lovenox. his blood cul tures shown no growth On 10/03/2020 patient seen in follow-up on the general medical surgical floor, continues on high flow oxygen per Airvo at 60 l/min, Fio2 72%. He looks and feels slightly better today, although still requiring high flow oxygen. He remains on IV steroids, 40 mg twice daily, he completed his course of Remdesivir, he is on Lovenox prophylactic dose, oral Pepcid, and vitamins and supplements. On 10/15/2020 patient seen in follow-up, he is currently In the chair, in no acute distress, his FiO2 was cut back to 6 L, and he desatted to 78-83%, although clinically he does not seem to be uncomfortable, he does not have increased work of breathing, appears to be breathing very comfortably, resting in a chair, no complaints of chest pain, no worsening dyspnea and no cough, his been afebrile, yesterday his chest x-ray showed coarse basilar infiltrates without significant change, patient has completed his treatment with Remdesivir, he had been on high-dose steroids, which had been decreased to oral Decadron and he remains on Lovenox currently at prophylactic doses at 40 mg daily. His been working with physical therapy, he does report shortness of breath exertion, but no acute distress, he normally wears 4 L of oxygen on a regular basis at home Objective - Vital Signs Vital signs: Vital Signs Temp 97.8 F 10/15/20 09:56 Pulse 87 10/15/20 09:56 Resp 20 10/15/20 09:56 BP 116/60 10/15/20 09:56 Pulse Ox 92 L 10/15/20 09:56 Intake & Output 10/14/20 10/15/20 10/15/20 18:59 06:59 18:59 Output Total 550 Balance -550 Weight 68.5 kg Output: Urine 550 Other: Voiding Method Toilet Toilet Urinal Urinal # Voids 4 1 - Exam GENERAL EXAM: Alert, very pleasant, 65-year-old white male, on 6l/min FiO2 per high flow nasal cannula, and this was recently cut back from 8 L, and patient seemed to be desaturating into the mid 70s, and low 80s, appears bennett breathing comfortably HEAD: Normocephalic/atraumatic. EYES: Normal reaction of pupils, equal size. Conjunctiva pink, sclera white. NOSE: Clear with pink turbinates. THROAT: No erythema or exudates. NECK: No masses, no JVD, no thyroid enlargement, no adenopathy. CHEST: No chest wall deformity. Symmetrical expansion. LUNGS: Equal air entry with diffuse crackles CVS: Regular rate and rhythm, normal S1 and S2, no gallops, no murmurs, no rubs ABDOMEN: Soft, nontender. No hepatosplenomegaly, normal bowel sounds, no guarding or rigidity. EXTREMITIES: clubbing noted in bilateral fingernails, no edema, no cyanosis, 2+ pulses and upper and lower extremities. MUSCULOSKELETAL: Muscle strength and tone normal. SPINE: No scoliosis or deformity SKIN: No rashes CENTRAL NERVOUS SYSTEM: Alert and oriented -3. No focal deficits, tone is normal in all 4 extremities. PSYCHIATRIC: Alert and oriented -3. Appropriate affect. Intact judgment and insight. - Labs CBC & Chem 7: 10/15/20 06:40 10/15/20 06:40 Labs: Abnormal Lab Results - Last 24 Hours (Table) 10/15/20 10/15/20 Range/Units 06:40 06:40 WBC 14.6 H (3.8-10.6) k/uL Neutrophils # 12.6 H (1.3-7.7) k/uL Sodium 133 L (135-145) mmol/L Carbon Dioxide 21.0 L (21.6-31.8) mmol/L BUN 31.0 H (9.0-27.0) mg/dL BUN/Creatinine Ratio 31.00 H (12.00-20.00) Ratio Assessment and Plan Plan: Assessment: #1. Acute on chronic hypoxic respiratory failure related to acute COVID 19 pneumonitis, completed course of Remdesivir, high dose of IV steroids, and anticoagulation. Patient did require high flow oxygen per Airvo at 60 L, and FiO2 of 72%, which was gradually weaned down and patient is currently on 8 L per high flow nasal cannula, although further attempts on weaning his FiO2 have been unsuccessful as patient does desaturate into the 70s. #2. Chronic hypoxic respiratory failure related to history of COPD and underlying interstitial lung disease, normally wears 4 L of oxygen on as-needed basis #3. Former smoker #4. History of hypothyroidism #5. Elevated inflammatory markers related to acute COVID 19 infection #6. Elevated d-dimer of 0.99 on admission, with no evidence of pulmonary embolism on CT chest Plan: Patient states he is breathing much easier, his FiO2 is still at 8 L/m, and any further attempts at weaning FiO2 has been unsuccessful as the patient desaturates into the mid 70s, we'll switch his Decadron to high-dose IV steroids at 60 mg every 6 hours, unfortunately patient states he cannot tolerate any i nhalers, and initially we wanted to order Symbicort and albuterol however patient states he cannot tolerate them and they will only make his coughing and shortness of breath worse. Continue attempting to wean his FiO2, usually wears 4 L of sitting at home, but his concentrated alterable go up to 6 L/m. Increase activity as tolerated, we'll continue to follow I performed a history & physical examination of the patient and discussed their management with my nurse practitioner, Morenita Abad. I reviewed the nurse practitioner's note and agree with the documented findings and plan of care. L antonina sounds are positive for diminished breath sounds. The findings and the impression was discussed with the patient. I attest to the documentation by the nurse practitioner. Time with Patient: Less than 30
--- NOTE | 2020-10-15 17:35 | P.PN ---
Subjective Progress Note Date: 10/15/20 (delayed charting seen at 1030) Principal diagnosis: shortness of breath Patient is a 65-year-old male past medical history of pulmonary fibrosis on chronic home oxygen at 4 L nasal cannula, hypertension, and hypothyroidism who presented with shortness of breath. In the emergency department he underwent an extensive evaluation. Upon arrival with paramedics his pulse ox was 77% on 4 L and he was increased to 15 L with pulse of 90% initial chest x-ray showed scattered mid to lower lung field infiltrates. He was subsequently diagnosed with Covid pneumonitis. He was started on empiric right antibiotics in the form of Zithromax and Rocephin, he received a prophy lactic dose of Lovenox and a dose of IV Decadron. He continued to require high flow nasal cannula at 15 L. He underwent a CTA of the chest which showed no evidence of pulmonary embolism but did show moderate to severe emphysematous changes with underlying pulmonary fibrosis. Patient had reported a history of interstitial lung disease diagnosed on biopsy approximately 10 years ago as well as being on oxygen for approximately 3-4 years. He did ultimately require both a 15 year-old nasal cannula with a nonrebreather on top of it. He then was subsequently placed on Airvo. He did receive remdesivir and convalesent plasma on top of his steroids. He has had a prolonged hospital stay secondary to hypoxic respiratory failure. He O2 was weaned starting on 10/12. Unable to wean to less than 8L NC as patient has Desat. Patient seen and examined at bedside. Wanting to not leave until Wednesday, wants guarantee that he wont be discharged until Wednesday. I had a long discussion with the patient that we will reassess his readiness for discharge on a daily basis. No chest pain, SOB, nausea, or vomiting. Has been getting up to bedside commode with standby assistance only. General: Ill appearing, no distress, appears at stated age Derm: warm, dry Head: atraumatic, normocephalic, symmetric Eyes: EOMI, no lid lag, anicteric sclera Mouth: no lip lesion, mucus membranes moist Cardiovascular: S1S2 reg, no murmur, positive posterior tibial pulse bilateral, Lungs: Decreased bs bilateral, no accessory muscle use Abdominal: soft, nontender to palpation, no guarding, no appreciable organo megaly Ext: no gross muscle atrophy, no edema, no contractures Neuro: CN II-XI grossly intact, no focal neuro deficits Psych: Alert, oriented, appropriate affect Covid 19 pneumonitis with acute on chronic hypoxic respiratory failure on 4 L home O2 -Status post Remdesivir, convalescent plasma -Continue to wean O2. Pulse ox acceptable range 88% or above - On 8L high flow unable to tolerate wean to 6L - Dexamethasone, Vit D 3, Vit C, Zinc, Pepcid, melatonin - Pulmonary recs - LDH and CRP significantly improved no need for repeat. - Lovenox COPD and ILD - outpatient follow-up Leukocytosis, stable - worsening, no signs/ symptoms of infection - Procalcitonin normal Ileus, improved -Continue with MiraLAX Hyperkalemia -Resolved -Status post 2 doses of Kayexalate, lisinopril continued and suspected to be the cause of hyperkalemia History of hypertension -Continue to follow blood pressures -Off lisinopril secondary to hyperkalemia Chronic conditions: Hypertension, dyslipidemia, hypothyroidism DVT prophylaxis: Lovenox Discussed with: Patient, nursing Anticipated discharge: 2-[address]: home with home health A total of 35 minutes was spent on the care of this complex patient more than 50% of the time was spent in counseling and care coordination. Objective - Vital Signs Vital signs: Vital Signs Temp 97.6 F 10/15/20 14:00 Pulse 90 10/15/20 14:00 Resp 22 10/15/20 14:00 BP 108/63 10/15/20 14:00 Pulse Ox 94 L 10/15/20 14:00 Intake & Output 10/14/20 10/15/20 10/15/20 18:59 06:59 18:59 Output Total 550 600 Balance -550 -600 Weight 68.5 kg Output: Urine 550 600 Other: Voiding Method Toilet Toilet Urinal Urinal # Voids 4 1 - Labs CBC & Chem 7: 10/15/20 06:40 10/15/20 06:40 Labs: Abnormal Lab Results - Last 24 Hours (Table) 10/15/20 10/15/20 Range/Units 06:40 06:40 WBC 14.6 H (3.8-10.6) k/uL Neutrophils # 12.6 H (1.3-7.7) k/uL Sodium 133 L (135-145) mmol/L Carbon Dioxide 21.0 L (21.6-31.8) mmol/L BUN 31.0 H (9.0-27.0) mg/dL BUN/Creatinine Ratio 31.00 H (12.00-20.00) Ratio
[2020-10-15] MEDS ORDERED: SYMBICORT 160-4.5 MCG INHALER INHALATION SCH (20:00)
[2020-10-15] MEDS: ATORVASTATIN 20 MG TAB PO SCH (20:09)
[2020-10-15] MEDS: MONTELUKAST 10 MG TAB PO SCH (20:10)
[2020-10-15] MEDS: MELATONIN 5 MG TABLET PO SCH (20:10)
[2020-10-16] MEDS: methylPREDNISolone SOD SUCCI 125 MG/2 ML VIAL IV SCH ×3 (05:33→16:27)
[2020-10-16] MEDS: LEVOTHYROXINE 75 MCG TAB PO SCH (05:33)
[2020-10-16 07:01] LABS: Glucose,Whole Blood 126 mg/dL (75-99)
[2020-10-16] MEDS: CHOLECALCIFEROL 400 UNIT TAB PO SCH (07:12)
[2020-10-16] MEDS: polyethylene glycoL 3350 17 GM POWD.PACK PO SCH ×2 (07:12→11:03)
[2020-10-16] MEDS: FAMOTIDINE 20 MG TAB PO SCH ×2 (07:12→20:43)
[2020-10-16] MEDS: ENOXAPARIN 40 MG/0.4 ML SYRINGE SQ SCH (07:12)
[2020-10-16] MEDS: ASCORBIC ACID 500 MG TAB PO SCH (07:12)
[2020-10-16] MEDS: ZINC SULFATE 220 MG CAP PO SCH (07:12)
[2020-10-16] MEDS: CALCIUM CARBONATE 500 MG CHEWABLE PO PRN ×3 (07:18→20:43)
[2020-10-16 11:18] LABS: Glucose,Whole Blood 139 mg/dL (75-99)
--- NOTE | 2020-10-16 13:15 | P.PN ---
Subjective Progress Note Date: 10/16/20 Principal diagnosis: Acute on chronic hypoxic respiratory failure secondary to CoVID 19 pneumonitis 65-year-old white male patient with a history of COPD, former smoker, on home o xygen at 4 L/m, was brought into the hospital on 09/27/2020 per EMS with the worsening shortness of breath, and worsening hypoxemia, patient was tested positive for COVID 19, 2 days ago. Upon initial evaluation by paramedics his pulse ox was 77% on 4 L, and his oxygen flow was increased to 15 L with a pulse ox of 90%. His chest x-ray showed scattered mid and lower lung field infiltrates. His lab work showed d-dimer 0.99, LDH of 869, CRP of 35, influenza screen was negative, lactic acid was 2.0, magnesium level is 2.7, blood gas was obtained on 100% FiO2 showing pO2 of 64, pCO2 31 and pH of 7.43. Patient was started on empiric antibiotics in the form of azithromycin and Rocephin, prophylactic dose of Lovenox, and IV Decadron 6 mg daily. He remains on high flow oxygen at 15 L, and his pulse ox is 93%, his breathing is labored. His CTA chest showed no evidence of pulmonary embolism, it did show moderately severe emphysematous changes and underlying pulmonary fibrosis. Patient states that he had bronchoscopy before and [place], however currently does not follow with a selling specialist, never had a lung biopsy for diagnosis of interstitial lung disease, his been on oxygen on as-needed basis, for a period of 10 years. During our evaluation patient is short of breath with conversation, his pulse ox is very marginal he is only sat 90-93%, on 15 L O2. Patient was reevaluated today on 09/28/20, I evaluated the patient again in the ER this morning, and I'll arrange for the patient to be admitted to the floor instead of going to the ICU. Patient is feeling much better today compared to how he felt yesterday. Remains on high flow cannula at 15 L/m, patient is feeling better, breathing easier, his O2 saturation is 94%. He had a T-max of 98.9. Blood pressure is 169/72 heart rate is 104. Electrolytes are normal BUN is down to 45 creatinine is down to 1.25. Patient is tolerating remdesivir and the Covid 19 cocktail quite well. The patient is seen today 09/29/2020 in follow-up on the regular medical floor. He is currently required 15 L high flow nasal cannula in addition to a nonrebreather mask. He had issues with O2 saturations in the upper 70s earlier this morning. Chest x-ray continued to show chronic emphysematous changes and pulmonary fibrotic changes with persistent bilateral peripheral acute infiltrates. No significant change compared to previous on 09/27/2020. Arterial blood gases revealed a pO2 of 58, pCO2 of 30 and a pH is 7.3 800% FiO2. The patient had been ordered Remdesivir while still in the emergency room the initial night however the order was not processed to the regular medical floor. He is initiated on it today. He has been continued on Lovenox for DVT prophylaxis, IV Solu-Medrol, Pepcid, melatonin, zinc, vitamin C, vitamin D. White count 10.7. Hemoglobin 14.0. Sodium 142. Potassium 4.8. LDH 374. Pro-calcitonin 0.03. Antibiotics will be discontinued. The patient is seen today 10/06/2020 in follow-up on the regular medical floor. He is currently resting fairly comfortably in bed. Awake and alert in no acute distress. Still requiring 15 L high flow nasal cannula to maintain O2 saturations in the 90s. He is afebrile. He has been slow to progress. He did receive convalescent plasma. Completed his course of Remdesivir. He remains on bronchodilators, IV Solu-Medrol, Lovenox and the Pepcid vitamin supplements. The patient is seen today 10/16/2020 in follow-up on the regular medical floor. He is currently sitting up at the bedside. Awake and alert in no acute distress. Continues to require 8 L high flow nasal cannula to maintain O2 saturation in the 90s. He's been afebrile. Hemodynamically stable. Blood glucose 139. Remains on IV Solu-Medrol. Objective - Vital Signs Vital signs: Vital Signs Temp 98.2 F 10/16/20 09:42 Pulse 102 H 10/16/20 09:42 Resp 22 10/16/20 09:42 BP 135/75 10/16/20 09:42 Pulse Ox 90 L 10/16/20 09:42 Intake & Output 10/15/20 10/16/20 10/16/20 18:59 06:59 18:59 Output Total 600 400 Balance -600 -400 Weight 67.4 kg Output: Urine 600 400 Other: Voiding Method Toilet Toilet Toilet Urinal Urinal Urinal - Exam GENERAL EXAM: Alert, pleasant, 65-year-old male patient, and 8 L high flow nasal cannula, in mild respiratory distress. HEENT: PERRLA, EOMI, no icterus. CHEST: No chest wall deformity. Symmetrical expansion. LUNGS: Equal air entry with bilateral scattered rhonchi, diffuse crackles CVS: Regular rate and rhythm, normal S1 and S2, no gallops, no murmurs, no rubs ABDOMEN: Soft, nontender. No hepatosplenomegaly, normal bowel sounds, no guarding or rigidity. EXTREMITIES: clubbing noted in bilateral fingernails, no edema, no cyanosis, 2+ pulses and upper and lower extremities. MUSCULOSKELETAL: Muscle strength and tone normal. SPINE: No scoliosis or deformity SKIN: No rashes CENTRAL NERVOUS SYSTEM: No focal deficits, tone is normal in all 4 extremities. PSYCHIATRIC: Alert and oriented -3. Appropriate affect. Intact judgment and insight. - Labs CBC & Chem 7: 10/15/20 06:40 10/15/20 06:40 Labs: Abnormal Lab Results - Last 24 Hours (Table) 10/15/20 10/16/20 10/16/20 Range/Units 06:40 07:00 11:17 Sodium 133 L (135-145) mmol/L Carbon Dioxide 21.0 L (21.6-31.8) mmol/L BUN 31.0 H (9.0-27.0) mg/dL BUN/Creatinine Ratio 31.00 H (12.00-20.00) Ratio POC Glucose (mg/dL) 126 H 139 H (75-99) mg/dL Assessment and Plan Assessment: 1 Acute on chronic hypoxic respiratory failure related to acute COVID 19 pneumonitis. Received convalescent plasma, complete Remdesivir 2 Chronic hypoxic respiratory failure related to history of COPD and underlying interstitial lung disease, normally wears 4 L of oxygen on as-needed basis 3 Former smoker 4 History of hypothyroidism 5 Elevated inflammatory markers related to acute COVID 19 infection 6 Elevated d-dimer of 0.99 on admission, with no evidence of pulmonary embolism on CT chest Plan: The patient was seen and evaluated by Dr. Ott Continue Lovenox, steroids Continue vitamin supplements, Pepcid, melatonin Titrate down the FiO2 as tolerated The patient could be cleared for discharge if able to obtain a home concentrator that would allow for 8-10 L We will continue to follow and make further recommendations based on his clinical status I, the cosigning physician, performed a history & physical examination of the patient. Lungs sounds bilateral scattered rhonchi, crackles in the bases, diminished. Maintaining good O2 saturations in the 90s on 8 L high flow nasal cannula. I discussed the assessment and plan of care with my nurse practi Carolina fenton. I attest to the above note as dictated by her.
[2020-10-16 16:24] LABS: Glucose,Whole Blood 136 mg/dL (75-99)
--- NOTE | 2020-10-16 16:42 | P.PN ---
Subjective Progress Note Date: 10/16/20 (delayed charting seen at 1115) Principal diagnosis: shortness of breath Patient is a 65-year-old male past medical history of pulmonary fibrosis on chronic home oxygen at 4 L nasal cannula, hypertension, and hypothyroidism who presented with shortness of breath. In the emergency department he underwent an extensive evaluation. Upon arrival with paramedics his pulse ox was 77% on 4 L and he was increased to 15 L with pulse of 90% initial chest x-ray showed scattered mid to lower lung field infiltrates. He was subsequently diagnosed with Covid pneumonitis. He was started on empiric right antibiotics in the form of Zithromax and Rocephin, he received a prophy lactic dose of Lovenox and a dose of IV Decadron. He continued to require high flow nasal cannula at 15 L. He underwent a CTA of the chest which showed no evidence of pulmonary embolism but did show moderate to severe emphysematous changes with underlying pulmonary fibrosis. Patient had reported a history of interstitial lung disease diagnosed on biopsy approximately 10 years ago as well as being on oxygen for approximately 3-4 years. He did ultimately require both a 15 year-old nasal cannula with a nonrebreather on top of it. He then was subsequently placed on Airvo. He did receive remdesivir and convalesent plasma on top of his steroids. He has had a prolonged hospital stay secondary to hypoxic respiratory failure. He O2 was weaned starting on 10/12. Unable to wean to less than 8L NC as patient has Desat. Patient seen and examined at bedside. Patient wondering about rehab. No chest pain, SOB, nausea, or vomiting. General: Ill appearing, no distress, appears at stated age Derm: warm, dry Head: atraumatic, normocephalic, symmetric Eyes: EOMI, no lid lag, anicteric sclera Mouth: no lip lesion, mucus membranes moist Cardiovascular: S1S2 reg, no murmur, positive posterior tibial pulse bilateral, Lungs: Course bs bilateral, no accessory muscle use Abdominal: soft, nontender to palpation, no guarding, no appreciable organomegaly Ext: no gross muscle atrophy, no edema, no contractures Neuro: CN II-XI grossly intact, no focal neuro deficits Psych: Alert, oriented, appropriate affect Covid 19 pneumonitis with acute on chronic hypoxic respiratory failure on 4 L home O2 -Status post Remdesivir, convalescent plasma -Continue to wean O2. Pulse ox acceptable range 88% or above - On 8L high flow unable to tolerate wean to 6L - Dexamethasone transitioned to solumedrol 10/15 - Vit D 3, Vit C, Zinc, Pepcid, melatonin - Pulmonary recs - LDH and CRP significantly improved no need for repeat. - Lovenox - Can have O2 concentrator to 10L at home. If he doesn't feel stong enough to go home would consider rehab. COPD and ILD - outpatient follow-up Leukocytosis, stable - worsening, no signs/ symptoms of infection - Procalcitonin normal Ileus, improved -Continue with MiraLAX Hyperkalemia -Resolved -Status post 2 doses of Kayexalate, lisinopril continued and suspected to be the cause of hyperkalemia History of hypertension -Continue to follow blood pressures -Off lisinopril secondary to hyperkalemia Chronic conditions: Hypertension, dyslipidemia, hypothyroidism DVT prophylaxis: Lovenox Discussed with: Patient, nursing Anticipated discharge: in AM Anticipated discharge place: home with home health vs SNF A total of 35 minutes was spent on the care of this complex patient more than 50% of the time was spent in counseling and care coordination. Objective - Vital Signs Vital signs: Vital Signs Temp 98.2 F 10/16/20 13:57 Pulse 103 H 10/16/20 13:57 Resp 22 10/16/20 13:57 BP 122/82 10/16/20 13:57 Pulse Ox 90 L 10/16/20 13:57 Intake & Output 10/15/20 10/16/20 10/16/20 18:59 06:59 18:59 Output Total 600 400 Balance -600 -400 Weight 67.4 kg Output: Urine 600 400 Other: Voiding Method Toilet Toilet Toilet Urinal Urinal Urinal - Labs CBC & Chem 7: 10/15/20 06:40 10/15/20 06:40 Labs: Abnormal Lab Results - Last 24 Hours (Table) 10/16/20 10/16/20 10/16/20 Range/Units 07:00 11:17 16:21 POC Glucose (mg/dL) 126 H 139 H 136 H (75-99) mg/dL
[2020-10-16 20:18] LABS: Glucose,Whole Blood 162 mg/dL (75-99)
[2020-10-16] MEDS: ATORVASTATIN 20 MG TAB PO SCH (20:43)
[2020-10-16] MEDS: MONTELUKAST 10 MG TAB PO SCH (20:43)
[2020-10-16] MEDS: MELATONIN 5 MG TABLET PO SCH (20:43)
[2020-10-17] MEDS: methylPREDNISolone SOD SUCCI 125 MG/2 ML VIAL IV SCH ×3 (00:56→11:40)
[2020-10-17] MEDS: LEVOTHYROXINE 75 MCG TAB PO SCH (05:29)
[2020-10-17 06:51] LABS: Glucose,Whole Blood 135 mg/dL (75-99)
[2020-10-17 07:29] LABS: HCT 39.4 % (39.0-53.0); HGB 13.2 gm/dL (13.0-17.5); MCH 29.1 pg (25.0-35.0); MCHC 33.4 g/dL (31.0-37.0); MCV 87.1 fL (80.0-100.0); Mean Platelet Volume 7.7; Platelet Count 221 k/uL (150-450); RBC 4.52 m/uL (4.30-5.90); RDW 12.9 % (11.5-15.5)
[2020-10-17] MEDS: ENOXAPARIN 40 MG/0.4 ML SYRINGE SQ SCH (07:41)
[2020-10-17] MEDS: ASCORBIC ACID 500 MG TAB PO SCH (07:41)
[2020-10-17] MEDS: ZINC SULFATE 220 MG CAP PO SCH (07:41)
[2020-10-17] MEDS: FAMOTIDINE 20 MG TAB PO SCH (07:41)
[2020-10-17] MEDS: CHOLECALCIFEROL 400 UNIT TAB PO SCH (07:42)
[2020-10-17] MEDS: polyethylene glycoL 3350 17 GM POWD.PACK PO SCH (07:42)
[2020-10-17] MEDS: CALCIUM CARBONATE 500 MG CHEWABLE PO PRN ×2 (07:45→13:54)
[2020-10-17 11:05] VITALS: BP 121/61; PULSE 79; RESP 22; TEMP 97.5
[2020-10-17 11:38] LABS: Glucose,Whole Blood 126 mg/dL (75-99)
[2020-10-17 11:48] LABS: African American GFR (CKD) 91.1 (60.0-200.0); Albumin 3.7 g/dL (3.80-4.90); Albumin/Globulin Ratio 1.95 (1.60-3.17); Anion Gap 9.7 mmol/L (4.00-12.00); Calcium 9.1 mg/dL (8.7-10.3); Carbon Dioxide 21.3 mmol/L (21.6-31.8); Globulin 1.9 g/dL (1.6-3.3); Non-African American GFR(CKD) 78.6 (60.0-200.0); Potassium 4.5 mmol/L (3.5-5.5); Total Bilirubin 0.5 mg/dL (0.3-1.2); Total Protein 5.6 g/dL (6.2-8.2)
[2020-10-17 13:44] VITALS: BMI 24.0
--- NOTE | 2020-10-17 16:34 | P.PN ---
Subjective Progress Note Date: 10/17/20 Principal diagnosis: COVID 19 pneumonitis 65-year-old white male patient with a history of COPD, former smoker, on home oxygen at 4 L/m, was brought into the hospital on 09/27/2020 per EMS with the worsening shortness of breath, and worsening hypoxemia, patient was tested positive for COVID 19, 2 days ago. Upon initial evaluation by paramedics his pulse ox was 77% on 4 L, and his oxygen flow was increased to 15 L with a pulse ox of 90%. His chest x-ray showed scattered mid and lower lung field infiltrates. His lab work showed d-dimer 0.99, LDH of 869, CRP of 35, influenza screen was negative, lactic acid was 2.0, magnesium level is 2.7, blood gas was obtained on 100% FiO2 showing pO2 of 64, pCO2 31 and pH of 7.43. Patient was started on empiric antibiotics in the form of azithromycin and Rocephin, prophylactic dose of Lovenox, and IV Decadron 6 mg daily. He remains on high flow oxygen at 15 L, and his pulse ox is 93%, his breathing is labored. His CTA chest showed no evidence of pulmonary embolism, it did show moderately severe emphysematous changes and underlying pulmonary fibrosis. Patient states that he had bronchoscopy before and [place], however currently does not follow with a clinical lab specialist, never had a lung biopsy for diagnosis of interstitial lung disease, his been on oxygen on as-needed basis, for a period of 10 years. During our evaluation patient is short of breath with conversation, his pulse ox is very marginal he is only sat 90-93%, on 15 L O2. On 10/02/2020 patient seen in follow-up on a general medical surgical floor, he still requiring high flow oxygen, currently on both 15 L high flow nasal cannula in 15 L nonrebreather with a pulse ox of 91-94%, he states his breathing is a bit easier, we place the patient on Airvo at 60 L and FiO2 of 92%, and his pulse ox is 97%, he is afebrile, he is on day 4 of Remdesivir treatment, is on high- dose IV steroids, he is on anticoagulation in the form of Lovenox. his blood cul tures shown no growth On 10/03/2020 patient seen in follow-up on the general medical surgical floor, continues on high flow oxygen per Airvo at 60 l/min, Fio2 72%. He looks and feels slightly better today, although still requiring high flow oxygen. He remains on IV steroids, 40 mg twice daily, he completed his course of Remdesivir, he is on Lovenox prophylactic dose, oral Pepcid, and vitamins and supplements. On 10/15/2020 patient seen in follow-up, he is currently In the chair, in no acute distress, his FiO2 was cut back to 6 L, and he desatted to 78-83%, although clinically he does not seem to be uncomfortable, he does not have increased work of breathing, appears to be breathing very comfortably, resting in a chair, no complaints of chest pain, no worsening dyspnea and no cough, his been afebrile, yesterday his chest x-ray showed coarse basilar infiltrates without significant change, patient has completed his treatment with Remdesivir, he had been on high-dose steroids, which had been decreased to oral Decadron and he remains on Lovenox currently at prophylactic doses at 40 mg daily. His been working with physical therapy, he does report shortness of breath exertion, but no acute distress, he normally wears 4 L of oxygen on a regular basis at home. 10/17/2020 patient seen in follow-up on medical surgical floor, she remains on influenza vaccine, his pulse ox is ranging between 91-100%, this could probably be weaned down further, patient wears 4 L of oxygen at baseline, she continues to improve, she is breathing comfortably, denies any acute distress, his vitals have been stable, no chest discomfort, no worsening dyspnea, he does have exertional dyspnea, but he's been working with physical therapy, tolerating activity well. He is getting stronger, she is tolerating oral diet, he has completed a course of Remdesivir, steroids, she has been getting anticoagulation in the form of Lovenox, has had no fever or chills, his last chest x-ray showed coarse basilar infiltrates without significant change. She does have underlying history of pulmonary fibrosis, he is on 4 L of oxygen on a regular basis. He is breathing quite comfortably right now, minimal cough, and he is on IV steroids. Objective - Vital Signs Vital signs: Vital Signs Temp 97.5 F L 10/17/20 10:00 Pulse 79 10/17/20 10:00 Resp 22 10/17/20 10:00 BP 121/61 10/17/20 10:00 Pulse Ox 100 10/17/20 10:00 Intake & Output 10/16/20 10/17/20 10/17/20 18:59 06:59 18:59 Intake Total 480 Output Total 750 450 Balance -750 -450 480 Weight 67.4 kg Intake: Oral 480 Output: Urine 750 450 Other: Voiding Method Toilet Toilet Urinal Urinal - Exam GENERAL EXAM: Alert, very pleasant, 65-year-old white male, on 8l/min FiO2 per high flow nasal cannula, with pulse ox of 91-100% HEAD: Normocephalic/atraumatic. EYES: Normal reaction of pupils, equal size. Conjunctiva pink, sclera white. NOSE: Clear with pink turbinates. THROAT: No erythema or exudates. NECK: No masses, no JVD, no thyroid enlargement, no adenopathy. CHEST: No chest wall deformity. Symmetrical expansion. LUNGS: Equal air entry with diffuse crackles CVS: Regular rate and rhythm, normal S1 and S2, no gallops, no murmurs, no rubs ABDOMEN: Soft, nontender. No hepatosplenomegaly, normal bowel sounds, no guarding or rigidity. EXTREMITIES: clubbing noted in bilateral fingernails, no edema, no cyanosis, 2+ pulses and upper and lower extremities. MUSCULOSKELETAL: Muscle strength and tone normal. SPINE: No scoliosis or deformity SKIN: No rashes CENTRAL NERVOUS SYSTEM: Alert and oriented -3. No focal deficits, tone is normal in all 4 extremities. PSYCHIATRIC: Alert and oriented -3. Appropriate affect. Intact judgment and insight. - Labs CBC & Chem 7: 10/17/20 07:00 10/17/20 07:00 Labs: Abnormal Lab Results - Last 24 Hours (Table) 10/16/20 10/17/20 10/17/20 Range/Units 20:17 06:49 07:00 WBC 17.0 H (3.8-10.6) k/uL Sodium (135-145) mmol/L Carbon Dioxide (21.6-31.8) mmol/L BUN (9.0-27.0) mg/dL BUN/Creatinine Ratio (12.00-20.00) Ratio Glucose (70-110) mg/dL POC Glucose (mg/dL) 162 H 135 H (75-99) mg/dL Total Protein (6.2-8.2) g/dL Albumin (3.80-4.90) g/dL 10/17/20 10/17/20 Range/Units 07:00 11:18 WBC (3.8-10.6) k/uL Sodium 133 L (135-145) mmol/L Carbon Dioxide 21.3 L (21.6-31.8) mmol/L BUN 33.0 H (9.0-27.0) mg/dL BUN/Creatinine Ratio 33.00 H (12.00-20.00) Ratio Glucose 111 H (70-110) mg/dL POC Glucose (mg/dL) 126 H (75-99) mg/dL Total Protein 5.6 L (6.2-8.2) g/dL Albumin 3.70 L (3.80-4.90) g/dL Assessment and Plan Plan: Assessment: #1. Acute on chronic hypoxic respiratory failure related to acute COVID 19 pneumonitis, completed course of Remdesivir, high dose of IV steroids, and an ticoagulation. Patient did require high flow oxygen per Airvo at 60 L, and FiO2 of 72%, which was gradually weaned down and patient is currently on 8 L per high flow nasal cannula, although further attempts on weaning his FiO2 have been unsuccessful as patient does desaturate into the 70s. #2. Chronic hypoxic respiratory failure related to history of COPD and underlying interstitial lung disease, normally wears 4 L of oxygen on as-needed basis #3. Former smoker #4. History of hypothyroidism #5. Elevated inflammatory markers related to acute COVID 19 infection #6. Elevated d-dimer of 0.99 on admission, with no evidence of pulmonary embolism on CT chest Plan: Patient continues to be stable from pulmonary perspective, no worsening dyspnea, still requiring 8 L of oxygen, no acute events overnight, no chest discomfort, minimal cough, tolerating physical therapy, tolerating oral intake, no nausea vomiting or diarrhea, no fever chills, discharge planning is in progress for discharge home on oxygen at 8 L or concentrated that allows for 8-10 L/min flow. Patient is to go home on prednisone taper, he can follow up on outpatient basis with Dr. Lawler in the office in 2 weeks I performed a history & physical examination of the patient and discussed their management with my nurse practitioner, Morenita Abad. I reviewed the nurse practitioner's note and agree with the documented findings and plan of care. Lung sounds are positive for diminished breath sounds. The findings and the impression was discussed with the patient. I attest to the documentation by the nurse practitioner. Time with Patient: Less than 30
--- NOTE | 2020-10-17 17:01 | P.DS ---
Providers Date of admission: 09/27/20 15:06 Expected date of discharge: 10/17/20 Attending physician: Nicko Cantrell MD Consults: 09/27/20 15:46 Consult Physician Routine Consulting Provider: Tosin Ott Consult Reason/Comments: COVID, COPD Do you want consulting provider notified?: Yes Primary care physician: Stated None Hospital Course: Discharge Diagnosis: Covid 19 pneumonitis with acute on chronic hypoxic respiratory failure on 4 L home O2 COPD and ILD Leukocytosis, stable Ileus, improved Hyperkalemia History of hypertension Hypertension dyslipidemia hypothyroidism Hospital Course: Patient is a 65-year-old male past medical history of pulmonary fibrosis on chronic home oxygen at 4 L nasal cannula, hypertension, and hypothyroidism who presented with shortness of breath. In the emergency department he underwent an extensive evaluation. Upon arrival with paramedics his pulse ox was 77% on 4 L and he was increased to 15 L with pulse of 90% initial chest x-ray showed scattered mid to lower lung field infiltrates. He was subsequently diagnosed with Covid pneumonitis. He was started on empiric right antibiotics in the form of Zithromax and Rocephin, he received a prophylactic dose of Lovenox and a dose of IV Decadron. He continued to require high flow nasal cannula at 15 L. He underwent a CTA of the chest which showed no evidence of pulmonary embolism but did show moderate to severe emphysematous changes with underlying pulmonary fibrosis. Patient had reported a history of interstitial lung disease diagnosed on biopsy approximately 10 years ago as well as being on oxygen for approximately 3-4 years. He did ultimately require both a 15 L Highflow nasal cannula with a nonrebreather on top of it. He then was subsequently placed on Airvo. He did receive remdesivir and convalesent plasma on top of his steroids. He has had a prolonged hospital stay secondary to hypoxic respiratory failure. He O2 was weaned starting on 10/12. Unable to wean to less than 8L NC as patient has Desat. His strength was increasing and O2 requirements stable. He was determined stable for discharge home. He will have a home O2 concentrator that goes to 10L. He will have home PT/OT/nursing. He was given RX for walker and shower chair. Patient seen and examined at bedside. Feeling stronger today, breathing stable. Wants to go home. Vital signs reviewed and stable. General: non toxic, no distress, appears at stated age Derm: warm, dry Head: atraumatic, normocephalic, symmetric Eyes: EOMI, no lid lag, anicteric sclera Mouth: no lip lesion, mucus membranes moist Cardiovascular: S1S2 reg, no murmur, positive posterior tibial pulse bilateral, Lungs: Decreased bs bilateral, no rhonchi, no rales , no accessory muscle use Abdominal: soft, nontender to palpation, no guarding, no appreciable organomegaly Ext: no gross muscle atrophy, no edema, no contractures Neuro: CN II-XI grossly intact, no focal neuro deficits Psych: Alert, oriented, appropriate affect A total of 45 minutes of time were spent preparing this complex discharge summary . Patient Condition at Discharge: Fair Plan - Discharge Summary New Discharge Prescriptions: New Dexamethasone 6 mg PO DAILY #3 tablet Aspirin EC [Ecotrin Low Dose] 81 mg PO DAILY #30 tablet. Zinc Sulfate [Orazinc] 220 mg PO DAILY #10 cap Famotidine [Pepcid] 20 mg PO BID #60 tab Ascorbic Acid [Vitamin C] 1,000 mg PO DAILY #10 tab Cholecalciferol [Vitamin D3] 400 unit PO DAILY #10 tab Continue Atorvastatin [Lipitor] 20 mg PO HS Donepezil HCl [Aricept] 10 mg PO HS EPINEPHrine (Auto Inject) [Epipen] 0.3 mg IM ONCE PRN PRN Reason: Anaphylaxis HYDROcodone/APAP 7.5-325MG [[place] 7.5-325] 1 tab PO Q6H PRN PRN Reason: Pain Levothyroxine Sodium [Synthroid] 75 mcg PO DAILY Magnesium Oxide [Mag-Ox] 250 mg PO W/BRKFST Metoprolol Succinate [Toprol XL] 25 mg PO DAILY Montelukast Sodium [Singulair] 10 mg PO HS Ranitidine HCl 150 mg PO DAILY Discontinued dexAMETHasone [Dexamethasone] See Taper PO DAILY hydroCHLOROthiazide [Hydrodiuril] 25 mg PO DAILY lisinopriL [Zestril] 20 mg PO DAILY Discharge Medication List Atorvastatin [Lipitor] 20 mg PO HS 09/27/20 [History] Donepezil HCl [Aricept] 10 mg PO HS 09/27/20 [History] EPINEPHrine (Auto Inject) [Epipen] 0.3 mg IM ONCE PRN 09/27/20 [History] HYDROcodone/APAP 7.5-325MG [[place] 7.5-325] 1 tab PO Q6H PRN 09/27/20 [History] Levothyroxine Sodium [Synthroid] 75 mcg PO DAILY 09/27/20 [History] Magnesium Oxide [Mag-Ox] 250 mg PO W/BRKFST 09/27/20 [History] Metoprolol Succinate [Toprol XL] 25 mg PO DAILY 09/27/20 [History] Montelukast Sodium [Singulair] 10 mg PO HS 09/27/20 [History] Ranitidine HCl 150 mg PO DAILY 09/27/20 [History] Ascorbic Acid [Vitamin C] 1,000 mg PO DAILY #10 tab 10/17/20 [Rx] Aspirin EC [Ecotrin Low Dose] 81 mg PO DAILY #30 tablet.dr 10/17/20 [Rx] Cholecalciferol [Vitamin D3] 400 unit PO DAILY #10 tab 10/17/20 [Rx] Dexamethasone 6 mg PO DAILY #3 tablet 10/17/20 [Rx] Famotidine [Pepcid] 20 mg PO BID #60 tab 10/17/20 [Rx] Zinc Sulfate [Orazinc] 220 mg PO DAILY #10 cap 10/17/20 [Rx] Follow up Appointment(s)/Referral(s): [facility], [NON-STAFF] - Marisela Roberts [NON-STAFF] - (Armando will deliver new oxygen concentrator and walker to patient's house. ) Parminder Singh, [facility] [REFERRING] - 10/22/20 9:00 am (This is a tele health appointment not in the office If this date and time doesn't work well for you please feel free to call the office to reschedule) Patient Instructions/Handouts: Viral Pneumonia (DC), Pulmonary Fibrosis (DC), Using Oxygen at Home (DC) Activity/Diet/Wound Care/Special Instructions: Activity: as tolerated Diet: regular Special Instructions: Monitor Blood pressure once daily at home, you have been off some of your medications while sick. Discharge Disposition: HOME SELF-CARE
[2020-10-18] MEDS ORDERED: predniSONE 10 MG TAB PO SCH (09:00)
== END 2020-10-17 16:48 | disposition home health service (06) | DRG 177 ==
LOC: EC 14:29 → 3SCARD 15:06 → 2SICU 17:55 → 4SSUR 09-28 14:02
PROVIDERS: ADMIT Internal Medicine; ATTEND Internal Medicine
PROC: XW033E5 Introduction of Remdesivir Anti-infective into Peripheral Vein, Percutaneous Approach, New Technology Group 5 (ICD-10-PCS; principal; 2020-09-29)
PROC: XW13325 Transfusion of Convalescent Plasma (Nonautologous) into Peripheral Vein, Percutaneous Approach, New Technology Group 5 (ICD-10-PCS; 2020-10-03)
DX: U07.1 COVID-19 (principal); J12.89 Other viral pneumonia; J96.21 Acute and chronic respiratory failure with hypoxia; K56.7 Ileus, unspecified; J84.10 Pulmonary fibrosis, unspecified; J43.9 Emphysema, unspecified; E03.9 Hypothyroidism, unspecified; E78.5 Hyperlipidemia, unspecified; I10 Essential (primary) hypertension; E87.5 Hyperkalemia; T38.0X5A Adverse effect of glucocorticoids and synthetic analogues, initial encounter; Z99.81 Dependence on supplemental oxygen; Z79.890 Hormone replacement therapy; Z79.899 Other long term (current) drug therapy; Z87.891 Personal history of nicotine dependence; Z88.6 Allergy status to analgesic agent; Z91.030 Bee allergy status; Z91.011 Allergy to milk products; Z88.8 Allergy status to other drugs, medicaments and biological substances; Z91.018 Allergy to other foods
CPT/HCPCS: 36415; 36600; 71045; 71275; 74022; 80048; 80053; 82728; 82805; 83605; 83615; 83735; 84132; 84145; 84443; 85025; 85027; 85379; 85610; 85730; 86140; 86850; 86900; 86901; 87040; 87502; 93005; 94640; 96365; 96367; 96372; 96374; 96375; 96376; 99285